=== PATIENT | female | born 1955 | race Caucasian/White ===

== ENCOUNTER → 2016-12-30 | Outpatient (CLI) | payer MEDICARE, OTHER ==
--- NOTE | 2016-12-30 11:05 | CT ---
EXAMINATION TYPE: CT brain wo con DATE OF EXAM: 12/30/2016 10:47 AM COMPARISON: CT brain November 02, 2014. HISTORY: Change in memory, MÉNDEZ, and blurred vision. Cerebral infarction per order. CT DLP: 1052 mGycm. Automated Exposure Control for Dose Reduction was Utilized. TECHNIQUE: CT scan of the head is performed without contrast. FINDINGS: There is no acute intracranial hemorrhage or midline shift identified. There is mild vent ricular and sulcal prominence consistent with mild age-related cerebral atrophy. Coley-white matter di fferentiation is maintained. The globes are intact though lenses remain thinned bilaterally and the visualized sinuses are clear. IMPRESSION: No acute intracranial hemorrhage or midline shift is seen. Mild age-related cerebral atr ophy otherwise unremarkable study. No significant change from prior. Results communicated to ordering physician as requested at time of dictation. A Document Only message has been documented for Catarino Hannon MD in the [employer] system on 12/30/2016 11:02 AM, Message ID [id number].
== END | disposition home or self-care (01) ==
LOC: RADCTMAIN 10:25
PROVIDERS: ATTEND Family Medicine
DX: G31.9 Degenerative disease of nervous system, unspecified (principal); I63.9 Cerebral infarction, unspecified
CPT/HCPCS: 70450

== ENCOUNTER → 2017-06-07 | Outpatient (CLI) | payer MEDICARE, OTHER ==
--- NOTE | 2017-06-08 09:37 | MM ---
Reason for exam: screening (asymptomatic). Last mammogram was performed 1 year and 1 month ago. History: Patient is postmenopausal. Family history of premenopausal breast cancer in sister, premenopausal breast cancer in mother, and breast cancer in sister. Benign right mammotome panel of the right breast, May 24, 2009. Took estrogen for 3 years beginning at age 31. Physical Findings: A clinical breast exam by your physician is recommended on an annual basis and results should be correlated with mammographic findings. MG 3D Screening Mammo W/Cad Bilateral CC and MLO view(s) were taken. Prior study comparison: May 21, 2016, bilateral MG 3d screening mammo w/cad. May 15, 2015, bilateral MG screening mammo w CAD. There are scattered fibroglandular densities. There is no discrete abnormality. No significant changes when compared with prior studies. ASSESSMENT: Negative, BI-RAD 1 RECOMMENDATION: Routine screening mammogram of both breasts in 1 year.
== END | disposition home or self-care (01) ==
LOC: RADMAMWWP 13:56
PROVIDERS: ATTEND Family Medicine
DX: Z12.31 Encounter for screening mammogram for malignant neoplasm of breast (principal)
CPT/HCPCS: 77063; G0202

== ENCOUNTER → 2018-01-03 | Outpatient (CLI) | payer MEDICARE, OTHER ==
[2018-01-03 18:28] LABS: Basophils % (A) 0 %; Eosinophils # (A) 0.2 k/uL (0-0.7); Eosinophils % (A) 2 %; HCT 34.5 % (34.0-46.0); Hypochromasia Slight; Lymphocytes # (A) 3.7 k/uL (1.0-4.8); Lymphocytes % (A) 38 %; MCH 27.3 pg (25.0-35.0); MCHC 31.8 g/dL (31.0-37.0); MCV 85.8 fL (80.0-100.0); Mean Platelet Volume 7.8; Monocytes # (A) 0.4 k/uL (0-1.0); Monocytes % (A) 4 %; Neutrophils # (A) 5.2 k/uL (1.3-7.7); Neutrophils % (A) 54 %; Platelet Count 261 k/uL (150-450); RBC 4.02 m/uL (3.80-5.40); RDW 14.3 % (11.5-15.5); WBC 9.6 k/uL (3.8-10.6)
[2018-01-03 18:34] LABS: Blood Urea Nitrogen 18 mg/dL (7-17); C Reactive Protein <5.0 mg/L (<10.0)
[2018-01-03 19:29] LABS: Erythrocyte Sedimentation Rate 22 mm/hr (0-20)
--- NOTE | 2018-01-04 08:54 | CT ---
EXAMINATION TYPE: CT soft tissue neck w con DATE OF EXAM: 01/03/2018 HISTORY: Sore throat x 2 weeks. Neck pain per order. COMPARISON: NONE CT DLP: 406.4 mGycm. Automated Exposure Control for Dose Reduction was Utilized. TECHNIQUE: CT scan of the neck is performed with IV Contrast, patient injected with 100 mL of Omnipa que 300, axial images are obtained, coronal and sagittal reformatted images are reviewed. FINDINGS: Airway: There is calcified 4 mm nodule superior aspect left lower lobe axial image 8. Airway is other stanton patent. Epiglottis and vallecula are within normal limits. Thyroid gland is normal in size Parotid/submandibular glands: Symmetric slightly heterogeneous submandibular glands with adjacent tin y lymph nodes strongly favored benign. Carotid/Vascular Structures: No significant plaque or stenosis at carotid bulb level bilaterally Osseous Structures: Anterior fusion plate C5-C6 level with artificial disc material. Moderate anterio r spurring superior to this. Multilevel uncovertebral facet arthropathy bilaterally C3 and C4 levels. Slight levoconvex scoliotic curvature centered in the thoracic spine. Other: No suspicious greater than 1 cm neck adenopathy is present IMPRESSION: No obvious mass or adenopathy. No suspicious focal fluid collection.
== END | disposition home or self-care (01) ==
LOC: RADCTMAIN 17:49
PROVIDERS: ATTEND Family Medicine
DX: M54.2 Cervicalgia (principal)
CPT/HCPCS: 85652; 82565; 84520; 85025; 86140; 70491; 36415; Q9967

== ENCOUNTER → 2018-01-06 | Outpatient (CLI) | payer MEDICARE, OTHER ==
--- NOTE | 2018-01-06 14:15 | NM ---
EXAMINATION TYPE: NM bone 3 phase DATE OF EXAM: 01/06/2018 COMPARISON: NONE HISTORY: Right knee pain x6 months. Triple phase bone scintigraphy was performed following the injection of25.5 mCi Tc 99m MDP. Immediat e images and 5 hours post injection images acquired. FINDINGS: Bilateral total knee arthroplasty defects are noted. There is increased radiotracer accumulation invo lving the tibial and femoral components of the right knee prosthesis. I cannot exclude a degree of un derlying infection or loosening. Correlate clinically. IMPRESSION: I cannot exclude a degree of underlying infection or loosening. Correlate clinically.
== END | disposition home or self-care (01) ==
LOC: RADNMMAIN 07:42
PROVIDERS: ATTEND Orthopaedic Surgery
DX: M79.661 Pain in right lower leg (principal); Z96.653 Presence of artificial knee joint, bilateral
CPT/HCPCS: 78315; A9503

== ENCOUNTER → 2018-01-26 | Outpatient (CLI) | payer MEDICARE, OTHER ==
[2018-01-26 11:22] LABS: Basophils % (A) 0 %; Eosinophils # (A) 0.2 k/uL (0-0.7); Eosinophils % (A) 2 %; HGB 11.9 gm/dL (11.4-16.0); Hypochromasia Slight; Lymphocytes # (A) 2.7 k/uL (1.0-4.8); Lymphocytes % (A) 28 %; MCHC 31.4 g/dL (31.0-37.0); MCV 85.8 fL (80.0-100.0); Monocytes # (A) 0.4 k/uL (0-1.0); Monocytes % (A) 4 %; Neutrophils # (A) 6.2 k/uL (1.3-7.7); Neutrophils % (A) 65 %; Platelet Count 254 k/uL (150-450); RBC 4.43 m/uL (3.80-5.40); WBC 9.5 k/uL (3.8-10.6)
[2018-01-26 11:31] LABS: ALT 27 U/L (9-52); AST 16 U/L (14-36); Albumin 4.2 g/dL (3.5-5.0); Alkaline Phosphatase 72 U/L (38-126); Anion Gap 14 mmol/L; Blood Urea Nitrogen 18 mg/dL (7-17); Calcium 9.4 mg/dL (8.4-10.2); Carbon Dioxide 27 mmol/L (22-30); Chloride 104 mmol/L (98-107); Glucose 112 mg/dL (74-99); INR 0.9 (<1.2); Potassium 4.4 mmol/L (3.5-5.1); Prothrombin Time 9.4 sec (9.0-12.0); Sodium 145 mmol/L (137-145); Total Bilirubin 0.3 mg/dL (0.2-1.3); Total Protein 7.1 g/dL (6.3-8.2)
--- NOTE | 2018-01-26 11:43 | XR ---
EXAMINATION TYPE: XR chest 2V DATE OF EXAM: 01/26/2018 COMPARISON: 05/03/2015 INDICATION: Presurgical clearance TECHNIQUE: Frontal and lateral views of the chest are obtained. FINDINGS: The heart size is normal. The pulmonary vasculature is normal. The lungs are clear. IMPRESSION: 1. No acute pulmonary process.
== END | disposition home or self-care (01) ==
LOC: LABPAT 10:48
PROVIDERS: ATTEND Orthopaedic Surgery
DX: Z01.818 Encounter for other preprocedural examination (principal); I10 Essential (primary) hypertension; Z79.899 Other long term (current) drug therapy; Z01.812 Encounter for preprocedural laboratory examination
CPT/HCPCS: 71046; 80053; 82607; 85025; 85610; 87070; 93005

== ENCOUNTER 2018-02-08 11:46 | Inpatient (IN) | payer MEDICARE, OTHER ==
[2018-02-01 14:29] VITALS: BMI 33.4
--- NOTE | 2018-02-07 10:23 | HP ---
HISTORY AND PHYSICAL CHIEF COMPLAINT: Right knee pain. HISTORY OF PRESENT ILLNESS: Patient is a 62-year-old retired female who presents with progressive right knee pain for the past several years. She underwent initial total knee arthroplasty in 1997. She denies fevers or chills. She has pain with any weightbearing activity. She has been taking [place] for this. PAST MEDICAL HISTORY: Significant for arthritis, type 2 diabetes and hypertension. PAST SURGICAL HISTORY: Significant for gastric bypass, previous bilateral total knee arthroplasty, appendectomy, carpal tunnel release and hysterectomy. CURRENT MEDICATIONS: 1. Abilify. 2. Cymbalta. 3. Lotensin. 4. Mobic. 5. Metformin. 6. [place]. She has allergies to INDERAL and ULTRAM. FAMILY HISTORY: Significant for cancer, hypertension and heart disease. SOCIAL HISTORY: Significant for previous tobacco use; however. she quit in 1989. 16 POINT REVIEW OF SYSTEMS: Otherwise reviewed and is noncontributory. PHYSICAL EXAMINATION: The patient is approximately 5 foot 1, 183 pounds of endomorphic habitus. HEENT exam is nonfocal. Neck is supple. She has painless passive motion of the right hip. Straight leg raise is negative. Active motion right knee -12 to 95 degrees of flexion. She has a moderate effusion. There is no warmth or erythema. She has tenderness about the medial and lateral joint line. Collaterals are stable. Homans is negative. Her distal neurovascular appears intact in the right lower extremity. Previous bone scan show shows evidence of increased uptake involving the right femoral and tibial components. Previous x-rays show a right total knee arthroplasty. IMPRESSION: 1. 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 2. Yhs-[id number]-awvklptff diabetes. RECOMMENDATIONS: I talked to the patient at length regarding her treatment options. At this point, she is quite symptomatic. She opts to proceed with surgery. We will plan to proceed with revision right total knee arthroplasty. Risks and benefits were discussed at length in layman's terms. We will institute DVT prophylaxis postoperatively. The patient underwent preoperative medical evaluation by Dr. Catarino Hannon. MMOZZIEL / DM: [id number] /
[~2018-02-08 11:46] MED LIST: ACETAMINOPHEN TAB 500 MG TAB PO ONE; LIDOCAINE 1% 20 ML VIAL (10MG/ML) FOR IV START INTRADERMA PRN; MELOXICAM 7.5 MG TAB PO ONE; MORPHINE SULFATE 4 MG/0.8 ML SYRINGE (INJ) IV PRN; ONDANSETRON 4 MG/2 ML VIAL ONE; ONDANSETRON ODT 4 MG TAB PO ONE; TRANEXAMIC ACID 1,000 MG in SODIUM CHLORIDE 0.9% 50 ML IVPB ONE; ceFAZolin IN SWFI 2 GM/20 ML SYRINGE IVP ONE
[2018-02-08] MEDS: LACTATED RINGERS 1,000 ML IV SCH (12:18)
[2018-02-08] MEDS ORDERED: DEXAMETHASONE SOD PHOS (MDV) 100 MG/10 ML VIAL IVP ONE (12:19)
[2018-02-08] MEDS ORDERED: MIDAZOLAM 2 MG/2 ML VIAL ONE (12:29)
[2018-02-08 12:39] LABS: Glucose,Whole Blood 123 mg/dL (75-99)
[2018-02-08] MEDS ORDERED: MIDAZOLAM 2 MG/2 ML VIAL IVP ONE ×2 (12:50→12:51)
[2018-02-08] MEDS ORDERED: ROPIVACAINE 246.25 MG, EPINEPHrine 0.5 MG, KETOROLAC 30 MG, cloNIDine HCL/PF 80 MCG, WA... MISCELLANE ONE ×5 (13:12)
[2018-02-08] MEDS ORDERED: ROPIVACAINE 1,100 MG, SODIUM CHLORIDE 0.9% 330 ML MISCELLANE PRN ×2 (13:55)
--- NOTE | 2018-02-08 13:56 | P.ONQ ---
Anesthesiology Proc Note - PNB - Peripheral Nerve Block Performed Right Adductor Canal Time Out Performed: Yes (12:48) Indication: Acute Post-Operative Pain, Requested by physician (Dr Bond) Sedation Type: Sedate with meaningful contact maintained Preparation: Sterile Dressing Position: Supine Catheter: Indwelling Needle Types: Other (see comment) (Mikaela) Needle Size: 100mm (4") Needle Gauge: 21 Injectate: 0.5% Ropivacaine (see comment for volume) (20cc) Blood Aspirated: No Pain Paresthesia on Injection Noted: No Resistance on Injection: Normal Events: Uneventful and Well Tolerated
[2018-02-08] MEDS ORDERED: CLINDAMYCIN 1,800 MG in SODIUM CHLORIDE 0.9% IRRIGATIO 3,000 ML IRRIGATION ONE (14:34)
[2018-02-08] MEDS ORDERED: MORPHINE SULFATE 4 MG/0.8 ML SYRINGE (INJ) IVP PRN ×2 (16:19)
[2018-02-08] MEDS ORDERED: NALOXONE 0.4 MG/ML 1 ML VIAL IV PRN (16:19)
[2018-02-08] MEDS ORDERED: MORPHINE SULFATE 4 MG/0.8 ML SYRINGE (INJ) IV PRN ×2 (16:19)
[2018-02-08] MEDS ORDERED: MAGNESIUM HYDROXIDE 2,400 MG/10 ML CUP PO PRN (16:19)
[2018-02-08] MEDS ORDERED: HYDROcodone/APAP 10-325MG 1 EACH TAB PO PRN ×2 (16:19→17:37)
[2018-02-08] MEDS ORDERED: ONDANSETRON 4 MG/2 ML VIAL IVP PRN (16:19)
[2018-02-08] MEDS ORDERED: LACTATED RINGERS 1,000 ML IV ONE ×2 (16:20)
--- NOTE | 2018-02-08 16:51 | P.OP ---
Date of Procedure: 02/08/18 Preoperative Diagnosis: Aseptic loosening right total knee arthroplasty Postoperative Diagnosis: Same Procedure(s) Performed: Revision right total knee arthroplasty Implants: Depuy TC3 size 3 cemented femoral component, 31 mm metaphyseal sleeve, 16 mm x 75 mm fluted femoral stem, +4 posterior lateral augment, size 3 cemented MBT tibial tray, 29 mm metaphyseal sleeve, 13 mm x 60 mm cemented tibial stem, 12.5 mm rotating platform articular surface. Anesthesia: regional, local, spinal Surgeon: Cleve Bond Shaper Machine Hand #1: Abdiaziz Kilgore Estimated Blood Loss (ml): 100 Pathology: none sent Condition: stable Disposition: PACU Indications for Procedure: The patient is a 62-year-old female who presents with progressive right knee pain after previously undergoing a right total hemiarthroplasty years ago. Clinically and by bone scan she was noted to have evidence of aseptic loosening with normal lab results. A discussion of the risks and benefits of revision arthroplasty was made with the patient. She opted to proceed. Operative risks to include infection, neurovascular injury, development of blood clots, possible component loosening, possible component failure and need for subsequent procedures was discussed. Informed consent was obtained. Operative Findings: As below Description of Procedure: The patient was brought to the operating room, and after induction of spinal anesthesia the right lower extremity was prepped and draped in normal fashion. The tourniquet was inflated to 270 mmHg. The curvilinear anterior incision previously made was utilized. The skin was incised sharply. Subcu tissues tissues were divided sharply. Electrocautery was used for hemostasis. A medial parapatellar arthrotomy was performed. The medial soft tissues to include the superficial and deep portions of the medial collateral ligament were elevated subperiosteally. The patella was everted. The knee was flexed. The polyethylene was then removed and was noted to have significant wear. There was also a significant effusion. The bone cement interface involving the distal femoral component was then interrupted with a sagittal saw. The distal femur was easily extracted. There was minimal distal and posterior bone loss however moderate anterior bone loss. Attention was then paid towards the proximal tibia. The screws were easily removed. The cement/implant interface was then disrupted with a sagittal saw. The tibial component was easily extracted with minimal bone loss. The tibia was then prepared utilizing the appropriate reamer. This was taken to the appropriate depth. I reamed up to 16 mm. The metaphyseal reamer was then utilized to the appropriate depth. I felt size 29 metaphyseal sleeve was most appropriate. The tibia sized most probably size 3. The metaphyseal broach was inserted to the appropriate depth. A cleanup cut was made with a sagittal saw. The trial tibial component was assembled and in inserted and felt to have good medial to lateral and anterior to posterior fit. This was then removed. Attention was then paid towards pairing the femur. The femoral canal was then reamed up to 16 mm to the appropriate depth. The metaphyseal reamer was utilized. A felt size 31 was most appropriate. The metaphyseal broach was inserted to the appropriate depth. The distal cutting block was placed. I needed no additional distal resection. No significant distal augment was needed. The 4-in-1 cutting block was placed. The anterior, posterior, and chamfer cuts were made. I did require a 4 mm posterior lateral augment. A box cut was made for a TC 3 component. The trial component was assembled and then gently impacted. I had good anterior to posterior medial to lateral fit. The trial tibial component was then placed along with the trial femoral component and a 12.5 mm articular surface. I to obtain full flexion and extension with stability with varus and valgus stress. I then inspected the patellar component. This appeared well fixed and in reasonable condition. I did not feel this required revision. The trial components were then removed. The bony surfaces were prepared with pulsatile lavage and dried. The posterior soft tissues were injected with ropivacaine. The tibial component was then cemented in placed and was fully seated. Excess cement was removed. The femoral component was cemented in place and was fully seated. Excess cement was removed. The trial 12.5 mm articular surface was placed and knee was put in full extension. Again I felt I good stability and was able to obtain full flexion and extension. The final articular surface was inserted and gently impacted. Pulsatile lavage was again utilized. The tourniquet was deflated with approximately 9 0 medial parapatellar arthrotomy was closed with #2 Ethibond suture. A deep drain was placed exiting laterally. Final hemostasis was obtained with electrocautery. The second dose of IV TXA was given. The subcu tissues reapproximated interrupted 2-0 Vicryl sutures. Skin approximated with susan. A sterile dressing was applied. The patient was then awoken from sedation and transferred to recovery room in good condition. Blood loss was estimated at 100 mL. No complications were incurred. Sponge and needle counts were correct at the end the case.
--- NOTE | 2018-02-08 17:18 | XR ---
EXAMINATION TYPE: XR knee limited RT DATE OF EXAM: 02/08/2018 COMPARISON: NONE HISTORY: Postop knee surgery TECHNIQUE: 2 views FINDINGS: There is a right knee prosthesis. Components appear in anatomic position. There are anterio r skin susan. IMPRESSION: No complicating process seen.
[2018-02-08 17:20] LABS: Glucose,Whole Blood 175 mg/dL (75-99)
[2018-02-08] MEDS: traMADol 50 MG TAB PO SCH ×2 (18:04→22:05)
[2018-02-08] MEDS: HYDROcodone/APAP 10-325MG 1 EACH TAB PO PRN (19:09)
[2018-02-08 20:14] LABS: Glucose,Whole Blood 233 mg/dL (75-99)
[2018-02-08] MEDS: ATORVASTATIN 40 MG TAB PO SCH (21:19)
[2018-02-08] MEDS: DULoxetine HCL 60 MG CAPSULE.DR PO SCH (21:19)
[2018-02-08] MEDS: INSULIN ASPART 100 UNIT/ML 1 ML 10 ML VIAL SQ SCH (21:19)
[2018-02-08] MEDS: traZODone HCL 50 MG TAB PO SCH (21:20)
[2018-02-08] MEDS: MONTELUKAST 10 MG TAB PO SCH (21:20)
[2018-02-08] MEDS: SENNOSIDES-DOCUSATE SODIUM 1 EACH TAB PO SCH (21:20)
[2018-02-08] MEDS: ceFAZolin IN SWFI 2 GM/20 ML SYRINGE IVP SCH (22:05)
[2018-02-09] MEDS: HYDROcodone/APAP 10-325MG 1 EACH TAB PO PRN ×3 (03:08→19:08)
[2018-02-09] MEDS: LACTATED RINGERS 1,000 ML IV SCH (03:09)
[2018-02-09] MEDS: ceFAZolin IN SWFI 2 GM/20 ML SYRINGE IVP SCH (05:09)
[2018-02-09 06:50] LABS: Glucose,Whole Blood 112 mg/dL (75-99)
[2018-02-09 07:23] LABS: Basophils % (A) 0 %; Eosinophils % (A) 0 %; HCT 29.6 % (34.0-46.0); Lymphocytes # (A) 2.3 k/uL (1.0-4.8); Lymphocytes % (A) 16 %; MCHC 31.1 g/dL (31.0-37.0); MCV 83.7 fL (80.0-100.0); Mean Platelet Volume 7.2; Monocytes # (A) 0.8 k/uL (0-1.0); Monocytes % (A) 6 %; Neutrophils % (A) 77 %; Platelet Count 238 k/uL (150-450); RBC 3.54 m/uL (3.80-5.40); RDW 13.5 % (11.5-15.5); WBC 14.3 k/uL (3.8-10.6)
[2018-02-09 07:33] LABS: HGB 9.2 gm/dL (11.4-16.0)
[2018-02-09] MEDS: INSULIN ASPART 100 UNIT/ML 1 ML 10 ML VIAL SQ SCH ×4 (08:30→21:47)
[2018-02-09] MEDS: LISINOPRIL 20 MG TAB PO SCH (08:40)
[2018-02-09] MEDS: FAMOTIDINE 20 MG TAB PO SCH (08:40)
[2018-02-09] MEDS: ARIPiprazole 10 MG TAB PO SCH (08:40)
[2018-02-09] MEDS: RIVAROXABAN 10 MG TAB PO SCH (08:40)
[2018-02-09] MEDS: DULoxetine HCL 60 MG CAPSULE.DR PO SCH ×2 (08:40→20:29)
[2018-02-09] MEDS: LINAGLIPTIN 5 MG TABLET PO SCH (08:40)
[2018-02-09] MEDS: DONEPEZIL 10 MG TAB PO SCH (08:42)
[2018-02-09] MEDS: MELOXICAM 7.5 MG TAB PO SCH (08:42)
[2018-02-09] MEDS: traMADol 50 MG TAB PO SCH ×3 (08:44→19:45)
--- NOTE | 2018-02-09 09:34 | P.PN ---
Progress Note - Text The patient is status post right adductor canal catheter placement. The catheter was placed for postoperative pain control, status post total right arthroplasty. Ropivacaine 0.2% is infusing at 8 mLs per hour. The patient has no complaints of right lower extremity numbness or weakness. Patient's VAS score is 2-3 -10. Assessment: Patient's adductor canal catheter is in place and working appropriately. Plan: continue infusion and adjust it as needed.
[2018-02-09 11:03] LABS: Glucose,Whole Blood 197 mg/dL (75-99)
[2018-02-09 11:39] LABS: Hemoglobin A1C 6.7 % (4.0-6.0)
--- NOTE | 2018-02-09 12:15 | P.PN ---
Subjective Progress Note Date: 02/09/18 Principal diagnosis: Status post revision right total knee arthroplasty Patient seen today resting in her hospital chair, she appears comfortable. She states that she is very tender today. She's ambulated minimally with therapy. She denies any headaches, lightheadedness, chest pain or shortness of breath. Objective - Vital Signs Vital signs: Vital Signs Temp 97.4 F L 02/09/18 08:15 Pulse 75 02/09/18 08:15 Resp 16 02/09/18 08:15 BP 113/67 02/09/18 08:15 Pulse Ox 98 02/09/18 08:15 Intake & Output 02/08/18 02/09/18 02/09/18 18:59 06:59 18:59 Intake Total 1551 140 350 Output Total 610 1230 200 Balance 941 -1090 150 Weight 80.286 kg Intake: IV 1301 Intake, IV Titration 140 Amount Lactated Ringers 1,000 ml 140 @ 40 mls/hr IV .Q24H WALLACE Rx#:[id number] Oral 250 350 Output: Drainage 130 Right Knee 130 Urine 510 1100 200 Uretheral ([place]) 800 200 Estimated Blood Loss 100 Other: Voiding Method Indwelling Catheter Indwelling Catheter - Exam Right lower extremity: Incision is clean, dry, and intact. [place] are in good condition. There is minimal soft tissue swelling and ecchymosis surrounding the medial and lateral aspects of the incision. Calf is soft, no tenderness with palpation. Plantar flexion, dorsiflexion, EHL, FHL are intact. Sensory exam to light touch throughout the extremity is intact, dorsal pedis pulses 2+. - Labs CBC & Chem 7: 02/09/18 06:54 Labs: Abnormal Lab Results - Last 24 Hours (Table) 02/08/18 02/08/18 02/08/18 Range/Units 12:15 17:16 20:06 WBC (3.8-10.6) k/uL RBC (3.80-5.40) m/uL Hgb (11.4-16.0) gm/dL Hct (34.0-46.0) % Neutrophils # (1.3-7.7) k/uL POC Glucose (mg/dL) 123 H 175 H 233 H (75-99) mg/dL 04/25/18 04/25/18 04/25/18 Range/Units 06:46 06:54 11:00 WBC 14.3 H (3.8-10.6) k/uL RBC 3.54 L (3.80-5.40) m/uL Hgb 9.2 L D (11.4-16.0) gm/dL Hct 29.6 L (34.0-46.0) % Neutrophils # 11.0 H (1.3-7.7) k/uL POC Glucose (mg/dL) 112 H 197 H (75-99) mg/dL Assessment and Plan Plan: Assessment: 1. Postop day 1 status post revision right total knee arthroplasty Plan: 1. Pain control, continue supportive oral medication 2. Continue work physical therapy and use of CPM 3. GI and DVT prophylaxis, continue Xarelto 10 mg once a day 4. Daily dressing changes/ice and elevate 5. Medical recommendations 6. Discharge planning: Likely discharge patient home tomorrow Time with Patient: Less than 30
--- NOTE | 2018-02-09 12:41 | CONS ---
CONSULTATION DATE OF SERVICE: . CHIEF COMPLAINT: A 62-year-old white female admitted with progressive right knee pain for multiple years, status post total knee bypass arthroscopy in 1997. No chest pain, shortness of breath. No lightheadedness, syncope. She has type 2 diabetes, hypertension, arthritis, mild COPD, history of gastric bypass, appendectomy, right carpal tunnel release, hysterectomy, bipolar disorder. HOME MEDICINES: Abilify, Cymbalta, Lotensin, Mobic, metformin, [place]. FAMILY HISTORY: Cancer, hypertension, heart disease. ALLERGIES: INDERAL and TRAMADOL. SOCIAL HISTORY: Negative. . 14 POINT REVIEW OF SYSTEMS: Negative except for as mentioned in HPI. She is 5 foot 1, 183 pounds. HEENT: Normocephalic and atraumatic. She wears glasses. Lungs are clear. Heart is S1, S2 without murmurs, rubs or gallops. Abdomen is soft. MUSCULOSKELETAL: Her right knee is in an Jason wrap bandage. Limited motion of the left leg; otherwise, full range of motion of other extremities. ASSESSMENT: 1. Right total knee arthroscopy with septic loosening. 2. Hypertension. 3. Diabetes mellitus. 4. Obesity. 5. Mild chronic obstructive pulmonary disease. 6. Diabetes mellitus. 7. Mood disorder. 8. hypertension. Continue current treatments. Home medicines restarted. Watch for breathing issues, address [place] NGUYEN / DM: [id number] /
[2018-02-09] MEDS: CYANOCOBALAMIN 500 MCG TAB PO SCH (13:36)
[2018-02-09] MEDS: FLUTICASONE 50MCG/SPRAY NASAL 16GM EA NOSTRIL SCH (15:53)
[2018-02-09] MEDS: PSEUDOEPHEDRINE 12HR 120 MG TABLET.ER PO SCH (15:53)
[2018-02-09 17:13] LABS: Glucose,Whole Blood 147 mg/dL (75-99)
--- NOTE | 2018-02-09 18:00 | PN ---
PROGRESS NOTE SUBJECTIVE: 62-year-old, white female with a septic knee status post total knee replacement right knee. Having no chest pain, shortness of breath. She is complaining of sinus congestion today on Sudafed and I ordered Singular from home and Nasacort nasal spray. No chest pain. No shortness of breath. CARDIOVASCULAR: S1, S2. Lungs clear. GI: Soft. Musculoskeletal: She is up ambulating down the garay a little bit. Possible discharge home in the morning. Add sinus medication, updrafts p.r.n. Please see further orders. MMODL / IJN: [id number] /
[2018-02-09] MEDS: MONTELUKAST 10 MG TAB PO SCH (20:29)
[2018-02-09] MEDS: ATORVASTATIN 40 MG TAB PO SCH (20:29)
[2018-02-09] MEDS: traZODone HCL 50 MG TAB PO SCH (20:29)
[2018-02-09] MEDS: SENNOSIDES-DOCUSATE SODIUM 1 EACH TAB PO SCH (20:31)
[2018-02-09 21:00] LABS: Glucose,Whole Blood 171 mg/dL (75-99)
[2018-02-10] MEDS: traMADol 50 MG TAB PO SCH ×3 (00:57→13:16)
[2018-02-10] MEDS: HYDROcodone/APAP 10-325MG 1 EACH TAB PO PRN (03:44)
[2018-02-10] MEDS: LACTATED RINGERS 1,000 ML IV SCH (04:33)
[2018-02-10] MEDS: PSEUDOEPHEDRINE 12HR 120 MG TABLET.ER PO SCH (06:14)
[2018-02-10 07:24] LABS: Glucose,Whole Blood 151 mg/dL (75-99)
[2018-02-10 08:14] VITALS: BP 124/58; PULSE 78; RESP 16; TEMP 98.4
[2018-02-10] MEDS: INSULIN ASPART 100 UNIT/ML 1 ML 10 ML VIAL SQ SCH ×2 (08:22→13:18)
[2018-02-10] MEDS: FLUTICASONE 50MCG/SPRAY NASAL 16GM EA NOSTRIL SCH (08:23)
[2018-02-10] MEDS: DULoxetine HCL 60 MG CAPSULE.DR PO SCH (08:23)
[2018-02-10] MEDS: MELOXICAM 7.5 MG TAB PO SCH (08:24)
[2018-02-10] MEDS: DONEPEZIL 10 MG TAB PO SCH (08:24)
[2018-02-10] MEDS: CYANOCOBALAMIN 500 MCG TAB PO SCH (08:24)
[2018-02-10] MEDS: ARIPiprazole 10 MG TAB PO SCH (08:24)
[2018-02-10] MEDS: FAMOTIDINE 20 MG TAB PO SCH (08:24)
[2018-02-10] MEDS: LINAGLIPTIN 5 MG TABLET PO SCH (08:25)
[2018-02-10] MEDS: RIVAROXABAN 10 MG TAB PO SCH (08:25)
[2018-02-10] MEDS: LISINOPRIL 20 MG TAB PO SCH (08:25)
[2018-02-10] MEDS ORDERED: MORPHINE ORAL SOLN 10 MG/5 ML CUP PO PRN ×4 (10:15→10:17)
--- NOTE | 2018-02-10 11:12 | P.PN ---
Progress Note - Text Progress Note Date: 02/10/18 S: The patient has no complaints. They deny shortness of breath or chest pain. O: Afebrile, vital signs stable Homans negative right lower extremity Distal neurovascular status intact in the operative extremity Incision clean, dry , and intact A/P: Postoperative day 2 status post revision right total knee arthroplasty Medical management DVT prophylaxis with Xarelto Discharge home today Discharge instructions as written
--- NOTE | 2018-02-10 11:14 | P.DS ---
Providers Date of admission: 02/08/18 11:46 Expected date of discharge: 02/10/18 Attending physician: Cleve Bond Consults: 02/08/18 16:19 Consult Physician Routine Consulting Provider: Catarino Hannon Reason/Comments: medical management Do you want consulting provider notified?: Yes [facility] Course: The patient underwent revision right total knee arthroplasty without complication. Postoperatively she had good return of bowel and bladder function. Upon discharge she was afebrile with stable vital signs. She was seen by physical therapy and progressed well with them. Procedures: Right revision total knee arthroplasty Patient Condition at Discharge: Good Plan - Discharge Summary Discharge Rx Participant: Yes New Discharge Prescriptions: New Rivaroxaban [Xarelto] 10 mg PO DAILY #12 tab HYDROcodone/APAP 10-325MG [[place] 10-325] 1 tab PO Q6H PRN #40 tab PRN Reason: Pain No Action Simvastatin [Zocor] 80 mg PO HS metFORMIN HCL [Glucophage] 1,000 mg PO BID DULoxetine HCL [Cymbalta] 60 mg PO BID Benazepril HCl [Lotensin] 20 mg PO QAM Linagliptin [Tradjenta] 5 mg PO QAM Vitamin B-12 1 tab PO DAILY Montelukast [Singulair] 10 mg PO HS HYDROcodone/APAP 10-325MG [[place] 10-325] 1 tab PO Q6H PRN PRN Reason: Pain Meloxicam [Mobic] 15 mg PO QAM Donepezil [Aricept] 10 mg PO QAM traZODone HCL 150 mg PO HS ARIPiprazole [Abilify] 10 mg PO QAM Discharge Medication List DULoxetine HCL [Cymbalta] 60 mg PO BID 03/26/14 [History] Simvastatin [Zocor] 80 mg PO HS 03/26/14 [History] metFORMIN HCL [Glucophage] 1,000 mg PO BID 03/26/14 [History] Benazepril HCl [Lotensin] 20 mg PO QAM 04/10/15 [History] Linagliptin [Tradjenta] 5 mg PO QAM 04/10/15 [History] Vitamin B-12 1 tab PO DAILY 06/05/15 [History] ARIPiprazole [Abilify] 10 mg PO QAM 02/01/18 [History] Donepezil [Aricept] 10 mg PO QAM 02/01/18 [History] HYDROcodone/APAP 10-325MG [[place] 10-325] 1 tab PO Q6H PRN 02/01/18 [History] Meloxicam [Mobic] 15 mg PO QAM 02/01/18 [History] Montelukast [Singulair] 10 mg PO HS 02/01/18 [History] traZODone HCL 150 mg PO HS 02/01/18 [History] Rivaroxaban [Xarelto] 10 mg PO DAILY #12 tab 02/08/18 [Rx] HYDROcodone/APAP 10-325MG [[place] 10-325] 1 tab PO Q6H PRN #40 tab 02/10/18 [Rx] Follow up Appointment(s)/Referral(s): [facility], [NON-STAFF] - Abdiaziz Kilgore, JUNI [PHYSICIAN BOAT DISPATCHER] - 2 Weeks Patient Instructions/Handouts: *Surgery [facility] - On-Q Pain Pump Discharge Instructions, Revision Total Joint Arthroplasty (DC) Activity/Diet/Wound Care/Special Instructions: Orthopedic Discharge Instructions: 1. Wound care and infection precautions, keep incision dry and covered while showering, no lotions, creams, moisturizers. No soaking, pools, hot tubs. Do not scrub over incision. 2. Weight-bear as tolerated with walker / cane until follow-up. 3. Ice and elevate when necessary. Do not exceed 20 minutes per hour with ice pack. 4. Utilize compression sleeve until seen at first follow up appointment. 5. Visiting nursing care. 6. Home physical therapy including home CPM. 7. Pain meds and anticoagulants per prescription. 8. Pain medication has potential to cause constipation. Increase oral fluid and fiber intake. Contact primary care provider if you have not had a bowel movement within 48 hours after discharge. 9. No anti-inflammatory medication until discussed at first post operative visit, this including Motrin, Aleve, Mobic, Diclofenac. 10. Follow up in office at 2 weeks postop with Vito Kilgore PA-C 11. Follow up with your primary care doctor 7-10 days after discharge. 12. Contact [facility] with any questions, [phone]. 13. [facility] - [phone] - will deliver to bedside before discharge. Discharge Disposition: HOME WITH HOME HEALTH SERVICES
[2018-02-10 11:49] LABS: Glucose,Whole Blood 186 mg/dL (75-99)
== END 2018-02-10 13:52 | disposition home health service (06) | DRG 468 ==
LOC: 2ORMAIN 11:46 → 3SUR 16:20
PROVIDERS: ADMIT Orthopaedic Surgery; ATTEND Orthopaedic Surgery
PROC: 0SPC0JZ Removal of Synthetic Substitute from Right Knee Joint, Open Approach (ICD-10-PCS; principal; 2018-02-08 13:35)
PROC: 0SRC0J9 Replacement of Right Knee Joint with Synthetic Substitute, Cemented, Open Approach (ICD-10-PCS; principal; 2018-02-08 13:35)
DX: T84.032A Mechanical loosening of internal right knee prosthetic joint, initial encounter (principal); E11.9 Type 2 diabetes mellitus without complications; Y79.2 Prosthetic and other implants, materials and accessory orthopedic devices associated with adverse incidents; E66.9 Obesity, unspecified; Z68.33 Body mass index [BMI] 33.0-33.9, adult; F31.9 Bipolar disorder, unspecified; I10 Essential (primary) hypertension; J44.9 Chronic obstructive pulmonary disease, unspecified; M19.90 Unspecified osteoarthritis, unspecified site; Z79.84 Long term (current) use of oral hypoglycemic drugs; Z82.49 Family history of ischemic heart disease and other diseases of the circulatory system; Z87.891 Personal history of nicotine dependence; Z90.710 Acquired absence of both cervix and uterus; Z98.84 Bariatric surgery status; Z88.6 Allergy status to analgesic agent; Z88.8 Allergy status to other drugs, medicaments and biological substances; Z79.1 Long term (current) use of non-steroidal anti-inflammatories (NSAID); Z79.891 Long term (current) use of opiate analgesic; Z79.899 Other long term (current) drug therapy; K21.9 Gastro-esophageal reflux disease without esophagitis
CPT/HCPCS: 83036; 85025

== ENCOUNTER → 2018-07-19 | Outpatient (CLI) | payer MEDICARE, OTHER ==
--- NOTE | 2018-07-20 14:39 | MM ---
Reason for exam: screening (asymptomatic). Last mammogram was performed 1 year and 1 month ago. History: Patient is postmenopausal. Family history of premenopausal breast cancer in sister, premenopausal breast cancer in mother, and breast cancer in sister. Benign right mammotome panel of the right breast, May 24, 2009. Took estrogen for 3 years beginning at age 31. Physical Findings: A clinical breast exam by your physician is recommended on an annual basis and results should be correlated with mammographic findings. MG 3D Screening Mammo W/Cad Bilateral CC and MLO view(s) were taken. Prior study comparison: June 07, 2017, bilateral MG 3d screening mammo w/cad. May 21, 2016, bilateral MG 3d screening mammo w/cad. There are scattered fibroglandular densities. Previous mammotome biopsy in the right breast. Benign oil cyst on the right. No significant changes when compared with prior studies. ASSESSMENT: Negative, BI-RAD 1 RECOMMENDATION: Routine screening mammogram of both breasts in 1 year.
== END | disposition home or self-care (01) ==
LOC: RADMAMWWP 15:00
PROVIDERS: ATTEND Family Medicine
DX: Z12.31 Encounter for screening mammogram for malignant neoplasm of breast (principal); Z80.3 Family history of malignant neoplasm of breast
CPT/HCPCS: 77063; 77067

== ENCOUNTER 2018-08-24 11:17 | Inpatient (IN) | payer MEDICARE, OTHER ==
[2018-08-24 11:58] LABS: Glucose,Whole Blood 87 mg/dL (75-99)
[2018-08-24] MEDS ORDERED: cefTRIAXone 1,000 MG VIAL (IM USE) IM SCH (12:15)
[2018-08-24 13:38] LABS: ALT 23 U/L (9-52); AST 12 U/L (14-36); Albumin 3.5 g/dL (3.5-5.0); Alkaline Phosphatase 51 U/L (38-126); Anion Gap 8 mmol/L; Blood Urea Nitrogen 14 mg/dL (7-17); Calcium 9.2 mg/dL (8.4-10.2); Carbon Dioxide 26 mmol/L (22-30); Chloride 106 mmol/L (98-107); Glucose 118 mg/dL (74-99); Potassium 4.5 mmol/L (3.5-5.1); Sodium 140 mmol/L (137-145); Total Bilirubin 0.2 mg/dL (0.2-1.3)
[2018-08-24 13:56] LABS: Basophils # (A) 0.1 k/uL (0-0.2); Basophils % (A) 1 %; Eosinophils # (A) 0.1 k/uL (0-0.7); Eosinophils % (A) 2 %; HCT 30.5 % (34.0-46.0); HGB 9.2 gm/dL (11.4-16.0); Hypochromasia Marked; Lymphocytes # (A) 2.7 k/uL (1.0-4.8); Lymphocytes % (A) 37 %; MCH 24.7 pg (25.0-35.0); MCHC 30.3 g/dL (31.0-37.0); MCV 81.5 fL (80.0-100.0); Mean Platelet Volume 7.6; Monocytes # (A) 0.3 k/uL (0-1.0); Monocytes % (A) 4 %; Neutrophils % (A) 55 %; Platelet Count 269 k/uL (150-450); RBC 3.74 m/uL (3.80-5.40); RDW 14.8 % (11.5-15.5); WBC 7.3 k/uL (3.8-10.6)
--- NOTE | 2018-08-24 14:01 | XR ---
EXAMINATION TYPE: XR chest 2V DATE OF EXAM: 08/24/2018 COMPARISON: 01/26/2018 HISTORY: Shortness of breath TECHNIQUE: Frontal and lateral views of the chest are obtained. FINDINGS: Scattered senescent parenchymal changes noted. No evidence for infiltrate. No evidence for atelectasis. Heart size is stable. Mediastinal structures are stable and grossly unremarkable. No evidence for hilar prominence. Degenerative changes dorsal spine. IMPRESSION: 1. No evidence for acute pulmonary disease.
[2018-08-24] MEDS: AZITHROMYCIN 500 MG in SODIUM CHLORIDE 0.9% 250 ML IVPB SCH (15:29)
[2018-08-24] MEDS: IPRATROPIUM-ALBUTEROL 3 ML NEB INHALATION SCH ×2 (15:29→19:47)
[2018-08-24] MEDS: ACETAMINOPHEN TAB 325 MG TAB PO PRN ×2 (15:31→20:21)
[2018-08-24] MEDS: SODIUM CHLORIDE 0.9% 1,000 ML IV SCH (15:33)
[2018-08-24] MEDS: methylPREDNISolone SOD SUCCI 125 MG/2 ML VIAL IV SCH (15:36)
[2018-08-24 16:45] LABS: Glucose,Whole Blood 115 mg/dL (75-99)
[2018-08-24] MEDS: traZODone HCL 100 MG TAB PO SCH (20:19)
[2018-08-24] MEDS: FLUTICASONE 50MCG/SPRAY NASAL 16GM EA NOSTRIL SCH (20:20)
[2018-08-24] MEDS: DULoxetine HCL 60 MG CAPSULE.DR PO SCH (20:21)
[2018-08-24] MEDS: ATORVASTATIN 40 MG TAB PO SCH (20:21)
[2018-08-24] MEDS: MONTELUKAST 10 MG TAB PO SCH (20:21)
[2018-08-24 20:23] LABS: Glucose,Whole Blood 247 mg/dL (75-99)
[2018-08-24] MEDS ORDERED: metFORMIN 500 MG TAB PO SCH (21:00)
[2018-08-24 21:22] LABS: Hemoglobin A1C 6.5 % (4.0-6.0)
[2018-08-24] MEDS ORDERED: RX INFO: IV CONTRAST WAS GIVEN 1 EACH MISC MISCELLANE PRN (23:03)
[2018-08-25] MEDS: methylPREDNISolone SOD SUCCI 125 MG/2 ML VIAL IV SCH ×3 (00:19→15:38)
[2018-08-25 06:56] LABS: Glucose,Whole Blood 177 mg/dL (75-99)
[2018-08-25] MEDS: IPRATROPIUM-ALBUTEROL 3 ML NEB INHALATION SCH ×4 (07:03→19:51)
[2018-08-25] MEDS ORDERED: ESCITALOPRAM 10 MG TAB PO SCH (09:00)
[2018-08-25] MEDS: HYDROcodone/APAP 10-325MG 1 EACH TAB PO PRN ×2 (09:04→15:35)
[2018-08-25] MEDS: SODIUM CHLORIDE 0.9% 1,000 ML IV SCH ×2 (09:35→16:20)
[2018-08-25] MEDS: DONEPEZIL 10 MG TAB PO SCH (09:44)
[2018-08-25] MEDS: FLUTICASONE 50MCG/SPRAY NASAL 16GM EA NOSTRIL SCH ×2 (09:45→21:09)
[2018-08-25] MEDS: DULoxetine HCL 60 MG CAPSULE.DR PO SCH ×2 (09:45→21:09)
[2018-08-25] MEDS: LISINOPRIL 20 MG TAB PO SCH (09:46)
[2018-08-25] MEDS: LINAGLIPTIN 5 MG TABLET PO SCH (09:46)
[2018-08-25] MEDS: MELOXICAM 7.5 MG TAB PO SCH (09:47)
[2018-08-25] MEDS: AZITHROMYCIN 500 MG in SODIUM CHLORIDE 0.9% 250 ML IVPB SCH (10:16)
[2018-08-25 11:12] LABS: Glucose,Whole Blood 206 mg/dL (75-99)
--- NOTE | 2018-08-25 11:55 | CT ---
CT CHEST FOR PULMONARY EMBOLISM. EXAMINATION TYPE: CT angio chest DATE OF EXAM: 08/25/2018 INDICATION: Elevated d-dimer CT DLP: 570 mGycm, Automated exposure control for dose reduction was used. CONTRAST: Patient injected with 100, wasted 31 mL of Isovue 370. COMPARISON: None TECHNIQUE: CT of the chest is performed on a spiral scan at 2 mm thick sections. Study is performed with intravenous contrast timed for evaluation for pulmonary embolism. This will limit additional po rtions of the evaluation. 3-D MIP images reconstructed by the technologist are reviewed on the compu ter in the coronal and sagittal planes. FINDINGS: No persistent filling defects are evident to suggest an acute pulmonary embolism. No mediastinal or hilar adenopathy enlarged by CT criteria is evident. The ascending aorta diameter at the level of the main pulmonary artery is 3.0 cm. The main pulmonary artery diameter at the bifur cation is 2.8 cm. There is a calcification within the left posterior upper lung field adjacent to the major fissure latrice suring 0.6 cm. This is compatible with a calcified granuloma. Limited CT section through the upper abdomen are unremarkable. IMPRESSIONS: 1. No acute pulmonary embolism.
[2018-08-25] MEDS: CHOLECALCIFEROL 1,000 UNIT TAB PO SCH (12:21)
[2018-08-25 17:09] LABS: Glucose,Whole Blood 266 mg/dL (75-99)
[2018-08-25 19:59] LABS: Glucose,Whole Blood 297 mg/dL (75-99)
[2018-08-25] MEDS: MONTELUKAST 10 MG TAB PO SCH (21:09)
[2018-08-25] MEDS: ATORVASTATIN 40 MG TAB PO SCH (21:09)
[2018-08-25] MEDS: traZODone HCL 100 MG TAB PO SCH (22:18)
[2018-08-26] MEDS: HYDROcodone/APAP 10-325MG 1 EACH TAB PO PRN ×3 (04:25→22:27)
[2018-08-26 06:55] LABS: Glucose,Whole Blood 201 mg/dL (75-99)
[2018-08-26 07:47] LABS: ALT 13 U/L (9-52); AST 9 U/L (14-36); Albumin 3.2 g/dL (3.5-5.0); Alkaline Phosphatase 45 U/L (38-126); Anion Gap 5 mmol/L; Blood Urea Nitrogen 16 mg/dL (7-17); Carbon Dioxide 25 mmol/L (22-30); Chloride 109 mmol/L (98-107); Glucose 178 mg/dL (74-99); Potassium 4.8 mmol/L (3.5-5.1); Sodium 139 mmol/L (137-145); Total Bilirubin 0.3 mg/dL (0.2-1.3); Total Protein 5.6 g/dL (6.3-8.2)
[2018-08-26] MEDS: FLUTICASONE 50MCG/SPRAY NASAL 16GM EA NOSTRIL SCH ×2 (07:53→20:41)
[2018-08-26] MEDS: methylPREDNISolone SOD SUCCI 125 MG/2 ML VIAL IV SCH ×2 (07:53)
[2018-08-26] MEDS: DULoxetine HCL 60 MG CAPSULE.DR PO SCH ×2 (07:53→20:41)
[2018-08-26] MEDS: MELOXICAM 7.5 MG TAB PO SCH (07:54)
[2018-08-26] MEDS: LISINOPRIL 20 MG TAB PO SCH (07:55)
[2018-08-26] MEDS: AZITHROMYCIN 500 MG TAB PO SCH (07:56)
[2018-08-26] MEDS: DONEPEZIL 10 MG TAB PO SCH (07:57)
[2018-08-26] MEDS: IPRATROPIUM-ALBUTEROL 3 ML NEB INHALATION SCH ×4 (08:55→19:08)
[2018-08-26 11:31] LABS: Glucose,Whole Blood 270 mg/dL (75-99)
[2018-08-26] MEDS: metFORMIN 500 MG TAB PO SCH ×2 (11:46→17:59)
[2018-08-26] MEDS: LINAGLIPTIN 5 MG TABLET PO SCH (11:51)
[2018-08-26] MEDS: CHOLECALCIFEROL 1,000 UNIT TAB PO SCH (11:51)
[2018-08-26] MEDS: INSULIN ASPART 100 UNIT/ML 1 ML 10 ML VIAL SQ SCH ×3 (11:54→20:41)
[2018-08-26] MEDS ORDERED: DARBEPOETIN ALFA 40 MCG/0.4 ML SYRINGE SQ SCH (17:00)
[2018-08-26 17:02] LABS: Glucose,Whole Blood 273 mg/dL (75-99)
--- NOTE | 2018-08-26 17:33 | HP ---
HISTORY AND PHYSICAL CHIEF COMPLAINT: This patient is a 63-year-old white female admitted with significant shortness of breath, cough, hypoxemia, COPD exacerbation, tracheobronchitis. She had elevated D- dimer and CT scan of her chest was ordered. It was negative for pulmonary embolism. She was admitted for hypoxemia, given IV steroids and updraft treatments and IV antibiotics. She is stable for admission. HOME MEDICATIONS: Home medications include: 1. Abilify. 2. Lipitor. 3. Aricept. 4. Cymbalta. 5. Hydrocodone. 6. Insulin. 7. DuoNeb updrafts. 8. Tradjenta. 9. Zestril. 10.Mobic. 11.Glucophage. 12.Singulair. 13.Desyrel. PAST MEDICAL HISTORY: 1. History of depression. 2. Bipolar depression. 3. Asthma. 4. Rhinitis. 5. Hypertension. 6. Osteoarthritis. 7. Depression. REVIEW OF SYSTEMS: Fourteen-point review of systems negative except for mentioned in the HPI. PHYSICAL EXAMINATION: Oxygen saturation high 80s to 90s, respiratory rate 25-30. Blood pressure was 110 over 70s to 140s over 80s. LUNGS: Scattered rhonchi and wheeze x4. CARDIOVASCULAR: S1-S2. OPHTHALMOLOGIC: Pupils equal, round, reactive to light and accommodation. NEUROLOGIC: Alert and orient x3. HEMATOLOGY: Negative Homans. PSYCH: Fair mood and affect. ASSESSMENT: 1. Asthma. 2. Chronic obstructive pulmonary disease exacerbation. 3. Tracheobronchitis. 4. Hypertension. 5. Osteoarthritis. 6. Diabetes mellitus. Continue current treatment, including updraft treatments, IV steroids, antibiotics. Follow up in the next 24-48 hours. MMODL / IJN: [id number] /
[2018-08-26 20:33] LABS: Glucose,Whole Blood 297 mg/dL (75-99)
[2018-08-26] MEDS: ATORVASTATIN 40 MG TAB PO SCH (20:41)
[2018-08-26] MEDS: methylPREDNISolone SOD SUCCI 40 MG/ML 1 ML VIAL IV SCH (20:42)
[2018-08-26] MEDS: MONTELUKAST 10 MG TAB PO SCH (20:42)
[2018-08-26] MEDS: SODIUM CHLORIDE 0.9% 1,000 ML IV SCH (20:48)
[2018-08-26 23:07] VITALS: RESP 16
[2018-08-26] MEDS: traZODone HCL 100 MG TAB PO SCH (23:14)
[2018-08-27 05:23] VITALS: BP 176/86; TEMP 98.1
[2018-08-27 06:54] LABS: Glucose,Whole Blood 210 mg/dL (75-99)
[2018-08-27] MEDS ORDERED: metFORMIN 500 MG TAB PO SCH (07:30)
[2018-08-27] MEDS: IPRATROPIUM-ALBUTEROL 3 ML NEB INHALATION SCH ×2 (07:37→11:31)
[2018-08-27] MEDS: INSULIN ASPART 100 UNIT/ML 1 ML 10 ML VIAL SQ SCH ×2 (08:42→13:39)
[2018-08-27] MEDS: HYDROcodone/APAP 10-325MG 1 EACH TAB PO PRN (08:42)
[2018-08-27] MEDS: AZITHROMYCIN 500 MG TAB PO SCH (08:43)
[2018-08-27] MEDS: LINAGLIPTIN 5 MG TABLET PO SCH (08:43)
[2018-08-27] MEDS: DULoxetine HCL 60 MG CAPSULE.DR PO SCH (08:43)
[2018-08-27] MEDS: metFORMIN 500 MG TAB PO SCH (08:43)
[2018-08-27] MEDS: MELOXICAM 7.5 MG TAB PO SCH (08:44)
[2018-08-27] MEDS: FLUTICASONE 50MCG/SPRAY NASAL 16GM EA NOSTRIL SCH (08:44)
[2018-08-27] MEDS: LISINOPRIL 20 MG TAB PO SCH (08:44)
[2018-08-27] MEDS: methylPREDNISolone SOD SUCCI 40 MG/ML 1 ML VIAL IV SCH (08:45)
[2018-08-27] MEDS: DONEPEZIL 10 MG TAB PO SCH (08:45)
[2018-08-27 11:03] LABS: Glucose,Whole Blood 126 mg/dL (75-99)
[2018-08-27 12:10] VITALS: PULSE 86
[2018-08-27] MEDS: CHOLECALCIFEROL 1,000 UNIT TAB PO SCH (13:40)
== END 2018-08-27 14:34 | disposition home or self-care (01) | DRG 191 ==
LOC: 3NMEDONC 11:27
PROVIDERS: ADMIT Family Medicine; ATTEND Family Medicine
DX: J44.0 Chronic obstructive pulmonary disease with (acute) lower respiratory infection (principal); F31.30 Bipolar disorder, current episode depressed, mild or moderate severity, unspecified; J44.1 Chronic obstructive pulmonary disease with (acute) exacerbation; J40 Bronchitis, not specified as acute or chronic; E11.9 Type 2 diabetes mellitus without complications; I10 Essential (primary) hypertension; J31.0 Chronic rhinitis; M19.90 Unspecified osteoarthritis, unspecified site; R09.02 Hypoxemia; Z79.84 Long term (current) use of oral hypoglycemic drugs; Z79.1 Long term (current) use of non-steroidal anti-inflammatories (NSAID); Z79.51 Long term (current) use of inhaled steroids; Z79.899 Other long term (current) drug therapy
CPT/HCPCS: 71046; 71275; 80053; 83036; 85025; 85379; 87502; 94640

== ENCOUNTER → 2019-02-03 | Outpatient (CLI) | payer MEDICARE, OTHER ==
[~2019-02-03] MED LIST changes: -ACETAMINOPHEN TAB 500 MG TAB PO ONE; -LIDOCAINE 1% 20 ML VIAL (10MG/ML) FOR IV START INTRADERMA PRN; -MELOXICAM 7.5 MG TAB PO ONE; -MORPHINE SULFATE 4 MG/0.8 ML SYRINGE (INJ) IV PRN; -ONDANSETRON 4 MG/2 ML VIAL ONE; -ONDANSETRON ODT 4 MG TAB PO ONE; +REGADENOSON 0.4 MG/5 ML SYRINGE IV ONE; -TRANEXAMIC ACID 1,000 MG in SODIUM CHLORIDE 0.9% 50 ML IVPB ONE; -ceFAZolin IN SWFI 2 GM/20 ML SYRINGE IVP ONE
--- NOTE | 2019-02-03 12:15 | NM ---
EXAMINATION TYPE: NM stress lexiscan cardiolite DATE OF EXAM: 02/03/2019 COMPARISON: 07/29/2012 HISTORY: Hypertension, diabetes, palpitations, hyperlipidemia, and family history of coronary artery disease TECHNIQUE: After the intravenous administration of 9.9 mCi Tc 99m Sestamibi - Cardiolite resting SPE CT images acquired 45 minutes post injection. The patient received 0.4mg Lexiscan, 25.2 mCi Tc 99m Sestamibi - Stress images obtained [address] injection FINDINGS: Review of stress and rest SPECT images demonstrates no distinct perfusion abnormality. Gated analysi s shows normal wall motion with an estimated left ventricular ejection fraction of 61 %. TID is calcu lated at 1.03, within normal limits. IMPRESSION: No scintigraphic evidence for reversible ischemia.
--- NOTE | 2019-02-03 12:45 | EST ---
EXERCISE STRESS DATE OF SERVICE: 02/03/2019 AGE: 63 SEX: Female HT: 5'1" WT: 165 pounds PROTOCOL: Lexiscan Cardiolite STAGE: DURATION OF EXERCISE: HEART RATE REST: 59 BLOOD PRESSURE REST: 150/73 MAXIMUM HEART RATE ACHIEVED: 80 MAXIMUM BLOOD PRESSURE: 160/76 85% MPHR: 133 100% MPHR: 156 METS: INDICATIONS: CLINICAL INFORMATION: This is a Lexiscan stress test. Baseline EKG revealed a normal sinus rhythm without significant ST-T changes. With Lexiscan administration heart rate changed from 59 to 80 beats per minute. Blood pressure changed from 150/73 to 160/76. EKG did not reveal any ST-segment changes to indicate ischemia. By EKG criteria, this is considered as a unremarkable Lexiscan stress test. The nuclear scan results which are more pertinent will be reported by the radiologist. PATRICK / DM: [id number] /
== END | disposition home or self-care (01) ==
LOC: RADNMMAIN 08:07
PROVIDERS: ATTEND Family Medicine
DX: I25.10 Atherosclerotic heart disease of native coronary artery without angina pectoris (principal)
CPT/HCPCS: 93017; 78452; A9500; J2785

== ENCOUNTER → 2019-02-27 | Outpatient (CLI) | payer MEDICARE, OTHER ==
[2019-02-27 09:53] LABS: Blood Urea Nitrogen 16 mg/dL (7-17)
== END | disposition home or self-care (01) ==
LOC: LABWHC1 08:44
PROVIDERS: ATTEND Physician Assistant
DX: Z01.812 Encounter for preprocedural laboratory examination (principal); N28.9 Disorder of kidney and ureter, unspecified
CPT/HCPCS: 36415; 82565; 84520

== ENCOUNTER 2019-04-06 06:44 | Day surgery (SDC) | payer MEDICARE, OTHER ==
[2019-03-30 15:52] VITALS: BMI 30.2
[~2019-04-06 06:44] MED LIST changes: +LACTATED RINGERS 1,000 ML IV SCH; +LIDOCAINE 1% 20 ML VIAL (10MG/ML) FOR IV START INTRADERMA PRN; -REGADENOSON 0.4 MG/5 ML SYRINGE IV ONE
[2019-04-06 07:14] VITALS: TEMP 96.6
[2019-04-06 07:24] LABS: Glucose,Whole Blood 114 mg/dL (75-99)
[2019-04-06] MEDS ORDERED: LIDOCAINE 1% INJ 10MG/ML (20 ML MDV) ONE (07:40)
[2019-04-06] MEDS ORDERED: PROPOFOL 10 MG/ML 20 ML VIAL IV ONE (07:40)
--- NOTE | 2019-04-06 07:50 | P.GSHP ---
History of Present Illness H&P Date: 04/06/19 Chief Complaint: Screening colonoscopy This is a 63-year-old female who presents today for screening colonoscopy. Patient denies a significant jet device. She states her last colonoscopy approximately 5 years ago. She has history of polyps. Past Medical History Past Medical History: Coronary Artery Disease (CAD), COPD, Dementia, Diabetes Mellitus, Eye Disorder, Hyperlipidemia, Hypertension, Osteoarthritis (OA), Sleep Apnea/CPAP/BIPAP Additional Past Medical History / Comment(s): NIDDM type II, generalized neuropathy per pt, beginnings of glaucoma and macular degeneration bilateral eyes, JANA with Cpap, chronic low back pain, DDD, benign colon polyp, external hemorrhoids. EARLY DEMENTIA. History of Any Multi-Drug Resistant Organisms: None Reported Past Surgical History: Appendectomy, Back Surgery, Bariatric Surgery, Hysterectomy, Joint Replacement, Orthopedic Surgery Additional Past Surgical History / Comment(s): Antoine en Y, EGDs-had sclerotherapy with one egd, colonoscopies, benign polypectomy, sigmoidoscopy, bilateral total knees with R total knee revision, L carpal tunnel release, low back surgery with sciatic nerve involved, Cervical fusion. Past Anesthesia/Blood Transfusion Reactions: Previous Problems w/ Anesthesia, Family History of Problems w/ Anesthesia Additional Past Anesthesia/Blood Transfusion Reaction / Comment(s): Pt states she had low oxygen after bariatric surgery that took a long time to resolve. Sister is allergic to a lot of "pain meds, had problems." Smoking Status: Former smoker - Past Family History Mother Family Medical History: Cancer Additional Family Medical History / Comment(s): Several types of cancer Father Family Medical History: Cancer Additional Family Medical History / Comment(s): Skin Cancer Sister(s) Family Medical History: Cancer Additional Family Medical History / Comment(s): Sister had "spider" cancer. Medications and Allergies Home Medications Medication Instructions Recorded Confirmed Type DULoxetine HCL [Cymbalta] 60 mg PO BID 03/26/14 04/06/19 History Simvastatin [Zocor] 80 mg PO HS 03/26/14 04/06/19 History metFORMIN HCL [Glucophage] 1,000 mg PO BID 03/26/14 04/06/19 History Benazepril HCl [Lotensin] 20 mg PO QAM 04/10/15 04/06/19 History Linagliptin [Tradjenta] 5 mg PO QAM 04/10/15 04/06/19 History ARIPiprazole [Abilify] 20 mg PO QAM 02/01/18 04/06/19 History Donepezil [Aricept] 15 mg PO QAM 02/01/18 04/06/19 History HYDROcodone/APAP 10-325MG [[place] 1 tab PO TID 02/01/18 04/06/19 History 10-325] Meloxicam [Mobic] 15 mg PO QAM 02/01/18 04/06/19 History Montelukast [Singulair] 10 mg PO HS 02/01/18 04/06/19 History Dextroamphetamine/Amphetamine 20 mg PO BID PRN 03/30/19 04/06/19 History [Adderall] amLODIPine [Norvasc] 5 mg PO QAM 03/30/19 04/06/19 History buPROPion SR [Wellbutrin Sr] 150 mg PO QAM 03/30/19 04/06/19 History Allergies Allergy/AdvReac Type Severity Reaction Status Date / Time hydroxyzine HCl Allergy Unknown Verified 04/05/19 08:26 [From Vistaril] hydroxyzine pamoate Allergy Unknown Verified 04/05/19 08:26 [From Vistaril] propranolol HCl Allergy Unknown Verified 04/05/19 08:26 [From Inderal LA] Surgical - Exam Vital Signs Temp Pulse Resp BP Pulse Ox 96.6 F L 65 18 155/67 98 04/06/19 07:12 04/06/19 07:12 04/06/19 07:12 04/06/19 07:12 04/06/19 07:12 - General well developed, well nourished, no distress - Eyes PERRL - ENT normal pinna - Neck no masses - Respiratory normal expansion - Cardiovascular Rhythm: regular - Abdomen Abdomen: soft, non tender Results - Labs Abnormal Lab Results - Last 24 Hours (Table) 04/06/19 Range/Units 07:19 POC Glucose (mg/dL) 114 H (75-99) mg/dL Assessment and Plan Assessment: Perform screening colonoscopy.
[2019-04-06 08:21] VITALS: RESP 16
[2019-04-06 08:31] VITALS: BP 132/74; PULSE 77
--- NOTE | 2019-04-06 09:20 | P.OP ---
Date of Procedure: 04/06/19 Preoperative Diagnosis: Screening colonoscopy History: Polyps Postoperative Diagnosis: Mild diverticulosis Procedure(s) Performed: Colonoscopy Anesthesia: MAC Surgeon: Tyrel Bolden Pathology: none sent Condition: stable Disposition: PACU Description of Procedure: he patient's placed on the endoscopy table in the lateral position. She received IV sedation. Digital rectal exam was performed and this revealed no abnormalities. Flexible colonoscope was then placed patient anus and passed with colon. The colon was quite tortuous. The ileocecal valve was not visualized. Secondary to tortuosity valve. The scope was withdrawn the remainder the ascending colon and transverse colon appeared normal. In the descending and sigmoid colon a few scattered diverticula. There were no polyps seen. The scope was then brought back the rectum and this appeared normal. Scope was withdrawn for patient.
== END 2019-04-06 09:11 | disposition home or self-care (01) ==
LOC: ORWHC2ENDO 06:44
PROVIDERS: ATTEND Surgery
DX: Z12.11 Encounter for screening for malignant neoplasm of colon (principal); K57.30 Diverticulosis of large intestine without perforation or abscess without bleeding; I25.10 Atherosclerotic heart disease of native coronary artery without angina pectoris; J44.9 Chronic obstructive pulmonary disease, unspecified; H40.9 Unspecified glaucoma; I10 Essential (primary) hypertension; E78.5 Hyperlipidemia, unspecified; F03.90 Unspecified dementia, unspecified severity, without behavioral disturbance, psychotic disturbance, mood disturbance, and anxiety; E11.42 Type 2 diabetes mellitus with diabetic polyneuropathy; E11.39 Type 2 diabetes mellitus with other diabetic ophthalmic complication; H42 Glaucoma in diseases classified elsewhere; G47.33 Obstructive sleep apnea (adult) (pediatric); M19.90 Unspecified osteoarthritis, unspecified site; G89.29 Other chronic pain; Z98.1 Arthrodesis status; Z98.84 Bariatric surgery status; Z79.84 Long term (current) use of oral hypoglycemic drugs; Z86.010 Personal history of colon polyps; Z87.891 Personal history of nicotine dependence; Z79.1 Long term (current) use of non-steroidal anti-inflammatories (NSAID); Z79.899 Other long term (current) drug therapy; Z79.891 Long term (current) use of opiate analgesic; Z99.89 Dependence on other enabling machines and devices
CPT/HCPCS: J2001; J2704; G0105

== ENCOUNTER → 2019-08-31 | Outpatient (CLI) | payer MEDICARE, OTHER ==
--- NOTE | 2019-08-31 16:41 | CONS ---
CONSULTATION DATE OF SERVICE: 08/31/2019 This patient is a 64-year-old lady who has been evaluated in [facility] for obstructive sleep apnea-hypopnea syndrome. HISTORY OF PRESENT ILLNESS/SLEEP-WAKE EVALUATION: Patient has history of obstructive sleep apnea since 2009. Since that time, she has been on treatment with CPAP. She continued to use CPAP for 8 years, but several months ago her CPAP unit was broken. At present her sleep schedule is from 5:30 p.m. to 10 p.m. on weekdays; on days when she is not working, from 11:30 p.m. until 6 a.m. Sometimes she has problems with falling asleep. She has a TV set in the bedroom. She sleeps in different positions. She snores and wakes up from sleep about 4 times with 4 episodes of nocturia. She worries about her sleep. She has episodes of depression and anxiety. [place] Sleepiness Scale is 7. PAST MEDICAL HISTORY: Past medical history is positive for hypertension, diabetes mellitus, polyarthritis, hyperlipidemia, depression, bipolar disorder. PAST SURGICAL HISTORY: Neck surgery in 2008. MEDICATIONS: 1. Duloxetine. 2. Aripiprazole. 3. Tradjenta. 4. Donepezil. 5. Montelukast. 6. Benazepril. 7. Metformin. 8. Meloxicam. 9. Adderall 20 mg 2 times a day. For the last month patient did not take it. 10.Norvasc. 11.[place]. 12.Wellbutrin. SOCIAL HISTORY: Positive for smoking for about 15 years up to 2-1/2 packs a day; quit in 1984. Alcohol consumption none. FAMILY HISTORY: Hypertension, heart problems, hyperlipidemia, stroke, arthritis, sinus problems, sleep apnea, cancer, headaches, diabetes, acid reflux, mental illness. PHYSICAL EXAMINATION: GENERAL: A pleasant lady without distress. VITAL SIGNS: BP 159/68, HR 82, RR 16, height 5 feet 1 inch, weight 185, body mass index 34.9, temperature 98.0, oxygen saturation at room air 98%. HEENT: PERRLA, EOMI. Evaluation of oropharynx showed tongue protrudes midline. Extremely low position of soft palate. Mallampati IV. Restriction of nasal breathing. NECK: Supple. No JVD. Thyroid is not palpable. Neck measures 14-1/2 inches in circumference. LUNGS: Clear to percussion and to auscultation. Good air exchange. No wheezing or rhonchi. HEART: S1, S2 regular. No murmurs, gallops or rubs. ABDOMEN: Obese. EXTREMITIES: Very minimal to 1+ swelling of ankles. IMPRESSION: 1. History of obstructive sleep apnea-hypopnea syndrome for more than 8 years, snoring, extremely low position of soft palate, Mallampati IV, awakenings from sleep multiple times with nocturia; obstructive sleep apnea-hypopnea syndrome. 2. Obesity; body mass index 34.9. 3. History of polyarthritis, especially back and neck. 4. Hypertension. 5. Diabetes mellitus. 6. Hyperlipidemia. 7. History of depression. 8. History of bipolar disorder. 9. Status post neck surgery in 2008. PLAN: 1. CPAP titration for reevaluation of effective CPAP pressure at the present time. Previous sleep study was done in 2009. 2. Patient will receive a new CPAP unit and all necessary CPAP supplies. 3. Losing weight. 4. Sleep hygiene with regular time in bed for at least 7-1/2 to 8 hours. 5. No driving if feeling any sleepiness. Thank you very much for allowing me to participate in the management of your patient. Sincerely, Abdias House MD, PhD, FAASM Diplomat of [place] [employer] [place] [employer] [facility] [place] MMODL / KADENN: [id number] /
== END ==
LOC: SLEEP 14:34
PROVIDERS: ATTEND Internal Medicine
DX: G47.33 Obstructive sleep apnea (adult) (pediatric) (principal); E66.9 Obesity, unspecified; I10 Essential (primary) hypertension; E11.9 Type 2 diabetes mellitus without complications; E03.9 Hypothyroidism, unspecified; Z86.59 Personal history of other mental and behavioral disorders; Z68.34 Body mass index [BMI] 34.0-34.9, adult; Z87.39 Personal history of other diseases of the musculoskeletal system and connective tissue; Z98.890 Other specified postprocedural states; Z87.891 Personal history of nicotine dependence; Z79.899 Other long term (current) drug therapy; Z79.891 Long term (current) use of opiate analgesic; Z79.1 Long term (current) use of non-steroidal anti-inflammatories (NSAID); Z79.84 Long term (current) use of oral hypoglycemic drugs
CPT/HCPCS: 99211

== ENCOUNTER 2019-10-04 08:26 | Day surgery (SDC) | payer MEDICARE, OTHER ==
[2019-10-02 10:55] VITALS: BMI 34.0
[~2019-10-04 08:26] MED LIST changes: -LIDOCAINE 1% 20 ML VIAL (10MG/ML) FOR IV START INTRADERMA PRN
[2019-10-04 08:45] VITALS: RESP 16; TEMP 98.4
[2019-10-04] MEDS ORDERED: LIDOCAINE 1% 20 ML VIAL (10MG/ML) FOR IV START INTRADERMA ONE (08:49)
[2019-10-04] MEDS ORDERED: LIDOCAINE 1% INJ 10MG/ML (20 ML MDV) ONE (08:55)
[2019-10-04] MEDS ORDERED: PROPOFOL 10 MG/ML 20 ML VIAL IV ONE (08:55)
[2019-10-04 08:57] LABS: Glucose,Whole Blood 148 mg/dL (75-99)
--- NOTE | 2019-10-04 09:06 | P.GSHP ---
History of Present Illness H&P Date: 10/04/19 Chief Complaint: GERD this is a 64-year-old female who presents today for EGD. She's had issues with GERD. Patient is. History of gastric bypass. Past Medical History Past Medical History: Coronary Artery Disease (CAD), COPD, Dementia, Diabetes Mellitus, Eye Disorder, Hyperlipidemia, Hypertension, Osteoarthritis (OA), Sleep Apnea/CPAP/BIPAP Additional Past Medical History / Comment(s): NIDDM type II, generalized neuropathy per pt, beginnings of glaucoma and macular degeneration bilateral eyes, JANA with Cpap, chronic low back pain, DDD, external hemorrhoids. EARLY DEMENTIA. States does not use CPAP @ this time.States having stomach pain @ times. History of Any Multi-Drug Resistant Organisms: None Reported Past Surgical History: Appendectomy, Back Surgery, Bariatric Surgery, Hysterectomy, Joint Replacement, Orthopedic Surgery Additional Past Surgical History / Comment(s): Antoine en Y, EGDs-had sclerotherapy with one egd, colonoscopies, benign polypectomy, sigmoidoscopy, bilateral total knees with R total knee revision, L carpal tunnel release, low back surgery with sciatic nerve involved, Cervical fusion. Past Anesthesia/Blood Transfusion Reactions: Previous Problems w/ Anesthesia, Family History of Problems w/ Anesthesia Additional Past Anesthesia/Blood Transfusion Reaction / Comment(s): Pt states she had low oxygen after bariatric surgery that took a long time to resolve. Sister is allergic to a lot of "pain meds, had problems." Smoking Status: Former smoker - Past Family History Mother Family Medical History: Cancer Additional Family Medical History / Comment(s): Several types of cancer Father Family Medical History: Cancer Additional Family Medical History / Comment(s): Skin Cancer Sister(s) Family Medical History: Cancer Additional Family Medical History / Comment(s): Sister had "spider" cancer. Medications and Allergies Home Medications Medication Instructions Recorded Confirmed Type DULoxetine HCL [Cymbalta] 60 mg PO BID 03/26/14 10/04/19 History Simvastatin [Zocor] 80 mg PO HS 03/26/14 10/04/19 History metFORMIN HCL [Glucophage] 1,000 mg PO BID 03/26/14 10/04/19 History Benazepril HCl [Lotensin] 20 mg PO QAM 04/10/15 10/02/19 History Linagliptin [Tradjenta] 5 mg PO QAM 04/10/15 10/04/19 History ARIPiprazole [Abilify] 20 mg PO QAM 02/01/18 10/04/19 History Donepezil [Aricept] 15 mg PO QAM 02/01/18 10/04/19 History HYDROcodone/APAP 10-325MG [[place] 1 tab PO TID PRN 02/01/18 10/04/19 History 10-325] Meloxicam [Mobic] 15 mg PO QAM 02/01/18 10/04/19 History Montelukast [Singulair] 10 mg PO HS 02/01/18 10/04/19 History Dextroamphetamine/Amphetamine 20 mg PO BID PRN 03/30/19 10/04/19 History [Adderall] amLODIPine [Norvasc] 5 mg PO QAM 03/30/19 10/04/19 History buPROPion SR [Wellbutrin Sr] 150 mg PO QAM 03/30/19 10/04/19 History Allergies Allergy/AdvReac Type Severity Reaction Status Date / Time hydroxyzine HCl Allergy Unknown Verified 10/04/19 08:35 [From Vistaril] hydroxyzine pamoate Allergy Unknown Verified 10/04/19 08:35 [From Vistaril] propranolol HCl Allergy Unknown Verified 10/04/19 08:35 [From Inderal LA] Surgical - Exam Vital Signs Temp Pulse Resp BP Pulse Ox 98.4 F 75 16 152/72 96 10/04/19 08:40 10/04/19 08:40 10/04/19 08:40 10/04/19 08:40 10/04/19 08:40 - General well developed, well nourished, no distress - Eyes PERRL - ENT normal pinna - Neck no masses - Respiratory normal expansion - Cardiovascular Rhythm: regular - Abdomen Abdomen: soft, non tender Results - Labs Abnormal Lab Results - Last 24 Hours (Table) 10/04/19 Range/Units 08:49 POC Glucose (mg/dL) 148 H (75-99) mg/dL Assessment and Plan Assessment: GERD. We'll perform EGD.
--- NOTE | 2019-10-04 09:12 | P.OP ---
Date of Procedure: 10/04/19 Preoperative Diagnosis: GERD Postoperative Diagnosis: mild esophagitis No evidence of gastrojejunostomy obstruction Procedure(s) Performed: EGD Anesthesia: MAC Surgeon: Tyrel Bolden Pathology: other (esophagus) Condition: stable Description of Procedure: the patient's placed on the endoscopy tablein the lateral position. She received IV sedation. The gastroscope placed oropharynx and then passed in the esophagus into the stomach. the patient a previous gastric bypass. The gastrojejunostomy was visualized. This was just below the GE junction. There is no evidence of any inflammatory changes of the gastric jejunostomy. Scope summer back and the stomach. The gastric pouch appeared mildly distended. The GE junction was at 40 cm the distal esophagus appeared minimally inflamed a biopsies performed. The proximal esophagus appeared normal. Scope was withdrawn for patient.
[2019-10-04 09:22] VITALS: BP 126/71; PULSE 72
== END 2019-10-04 09:42 | disposition home or self-care (01) ==
LOC: ORWHC2ENDO 08:26
PROVIDERS: ATTEND Surgery
DX: K21.9 Gastro-esophageal reflux disease without esophagitis (principal); I25.10 Atherosclerotic heart disease of native coronary artery without angina pectoris; J44.9 Chronic obstructive pulmonary disease, unspecified; F03.90 Unspecified dementia, unspecified severity, without behavioral disturbance, psychotic disturbance, mood disturbance, and anxiety; E11.40 Type 2 diabetes mellitus with diabetic neuropathy, unspecified; E78.5 Hyperlipidemia, unspecified; I10 Essential (primary) hypertension; M19.90 Unspecified osteoarthritis, unspecified site; G47.33 Obstructive sleep apnea (adult) (pediatric); E11.39 Type 2 diabetes mellitus with other diabetic ophthalmic complication; H42 Glaucoma in diseases classified elsewhere; H35.30 Unspecified macular degeneration; G89.29 Other chronic pain; M54.9 Dorsalgia, unspecified; K64.4 Residual hemorrhoidal skin tags; F41.9 Anxiety disorder, unspecified; F32.9 Major depressive disorder, single episode, unspecified; Z90.49 Acquired absence of other specified parts of digestive tract; Z98.84 Bariatric surgery status; Z90.710 Acquired absence of both cervix and uterus; Z96.653 Presence of artificial knee joint, bilateral; Z98.890 Other specified postprocedural states; Z86.010 Personal history of colon polyps; Z98.1 Arthrodesis status; Z91.89 Other specified personal risk factors, not elsewhere classified; Z87.891 Personal history of nicotine dependence; Z79.899 Other long term (current) drug therapy; Z79.84 Long term (current) use of oral hypoglycemic drugs; Z79.891 Long term (current) use of opiate analgesic; Z79.1 Long term (current) use of non-steroidal anti-inflammatories (NSAID); Z88.8 Allergy status to other drugs, medicaments and biological substances; Z97.2 Presence of dental prosthetic device (complete) (partial); Z84.89 Family history of other specified conditions; Z80.9 Family history of malignant neoplasm, unspecified; Z80.8 Family history of malignant neoplasm of other organs or systems
CPT/HCPCS: 88305; 43239; J2001; J2704

== ENCOUNTER → 2019-10-12 | Outpatient (CLI) | payer MEDICARE, OTHER ==
--- NOTE | 2019-10-13 12:46 | MM ---
Reason for exam: screening (asymptomatic). Last mammogram was performed 1 year and 3 months ago. History: Patient is postmenopausal. Family history of premenopausal breast cancer in sister, premenopausal breast cancer in mother, and breast cancer in sister. Benign right mammotome panel of the right breast, May 24, 2009. Took estrogen for 3 years beginning at age 31. Physical Findings: A clinical breast exam by your physician is recommended on an annual basis and results should be correlated with mammographic findings. MG 3D Screening Mammo W/Cad Bilateral CC and MLO view(s) were taken. Prior study comparison: July 19, 2018, bilateral MG 3d screening mammo w/cad. June 07, 2017, bilateral MG 3d screening mammo w/cad. The breast tissue is heterogeneously dense. This may lower the sensitivity of mammography. There are benign appearing round dystrophic calcifications bilaterally. Previous mammotome biopsy in the right breast. There is no discrete abnormality. ASSESSMENT: Benign, BI-RAD 2 RECOMMENDATION: Routine screening mammogram of both breasts in 1 year.
== END | disposition home or self-care (01) ==
LOC: RADMAMWWP 10:18
PROVIDERS: ATTEND Family Medicine
DX: Z12.31 Encounter for screening mammogram for malignant neoplasm of breast (principal); Z80.3 Family history of malignant neoplasm of breast
CPT/HCPCS: 77063; 77067

== ENCOUNTER → 2019-11-03 | Outpatient (CLI) | payer MEDICARE, OTHER ==
[2019-11-03 17:16] LABS: African American GFR (CKD) >90 (>60 ml/min/1.73 sqM); Blood Urea Nitrogen 12 mg/dL (7-17); Non-African American GFR(CKD) 80 (>60 ml/min/1.73 sqM)
--- NOTE | 2019-11-04 13:28 | CT ---
EXAMINATION TYPE: CT abdomen pelvis w con DATE OF EXAM: 11/03/2019 COMPARISON: None HISTORY: Abdominal and pelvic pain CT DLP: 1420.20 mGycm Automated exposure control for dose reduction was used. TECHNIQUE: Helical acquisition of images from the lung bases through the pelvis have been completed. CONTRAST: Performed with Oral Contrast and with IV Contrast, patient injected with 100 mL of Isovue 300. FINDINGS: Postop changes are noted to the stomach. LUNG BASES: No significant abnormality is appreciated. AORTA: No significant abnormality is appreciated. LIVER/GB: No significant abnormality is appreciated. PANCREAS: No significant abnormality is seen. SPLEEN: No significant abnormality is seen. Probable splenule noted towards the hilum measuring appro ximately 12 mm ADRENALS: No significant abnormality is seen. KIDNEYS: Parapelvic cysts are noted bilaterally. Cortical cyst also associated with the left kidney, the largest measures 2 cm and shows borderline increased attenuation REPRODUCTIVE ORGANS: Uterus is not seen, suspect left ovarian tissue or adnexal structures remain in place, right ovary not seen definitively BOWEL: There is some fluid-filled loops of small bowel present. No evident obstruction. Low-attenuat ion within the cecum likely represents bowel content but is indeterminate. FREE AIR: No Free Air visible. ASCITES: None visible. PELVIC ADENOPATHY: None visualized. RETROPERITONEAL ADENOPATHY: No Retroperitoneal Adenopathy visible. URINARY BLADDER: No significant abnormality is seen. OSSEOUS STRUCTURES: Probable bone island present within the right and left ilium, degenerative disc changes, facet arthropathy noted in the lumbar spine, there is a spinal curvature. IMPRESSION: POSTOP CHANGES. CORRELATE FOR POSSIBLE ILEUS OR ENTERITIS. ADDITIONAL FINDINGS ABOVE. NONSPECIFIC FIN DINGS.
== END | disposition home or self-care (01) ==
LOC: RADCTMAIN 16:11
PROVIDERS: ATTEND Family Medicine
DX: R10.9 Unspecified abdominal pain (principal); Z98.890 Other specified postprocedural states
CPT/HCPCS: 82565; 84520; 74177; 36415; Q9967

== ENCOUNTER → 2019-12-13 | Outpatient (CLI) | payer MEDICARE, OTHER ==
--- NOTE | 2019-12-13 16:59 | P.PN ---
Progress Note - Text Progress Note Date: 12/13/19 Patient not seen due to cancellation from emergency surgery
== END | disposition home or self-care (01) ==
LOC: BARWHC3 15:39
PROVIDERS: ATTEND Surgery Plastic and Reconstructive Surgery
DX: Z53.8 Procedure and treatment not carried out for other reasons (principal)

== ENCOUNTER → 2019-12-20 | Outpatient (CLI) | payer MEDICARE, OTHER ==
[2019-12-20 16:10] VITALS: BP 135/76; PULSE 61; RESP 16; TEMP 97.5; BMI 35.8
--- NOTE | 2019-12-20 17:55 | P.HPBAR ---
Bariatric H&P - History & Physicial H&P Date: 12/20/19 History & Physicial: Visit/CC: Ben Consult Patient initial contact: Initial weight: 120.202 kg Initial weight in pounds: 265.00 Height: 5 ft 1 in Initial BMI: 50.1 Last weight: Current weight: 85.927 kg Current weight in pounds: 189.44 Current BMI: 35.8 [place] body weight (based on NIH guidelines): 47.627 kg Excess body weight loss: 47.2% The patient is a 64 year-old F who presents for Bariatric Assessment. HPI: She had a bypass Dr stevenson. She got down to 160 pounds, now 189 pounds. Lowest weight 160 pounds. Highest 265 pounds. Her surgery was 4+ years ago, 2015. Will need records. She reports no problems from her her surgery. She had epigastric pain of the abdomen. She had a CT scan. Protein intake is insufficienct 1. Recommend labs 2. [employer] Specialist visits 3. Get EGD Past Medical History Past Medical History: Coronary Artery Disease (CAD), COPD, Dementia, Diabetes Mellitus, Eye Disorder, Hyperlipidemia, Hypertension, Osteoarthritis (OA), Sleep Apnea/CPAP/BIPAP Additional Past Medical History / Comment(s): NIDDM type II, generalized neuropathy per pt, beginnings of glaucoma and macular degeneration bilateral eyes, JANA with Cpap, chronic low back pain, DDD, external hemorrhoids. EARLY DEMENTIA. States does not use CPAP @ this time.States having stomach pain @ times. History of Any Multi-Drug Resistant Organisms: None Reported Past Surgical History: Appendectomy, Back Surgery, Bariatric Surgery, Hysterectomy, Joint Replacement, Orthopedic Surgery Additional Past Surgical History / Comment(s): Antoine en Y, EGDs-had sclerotherapy with one egd, colonoscopies, benign polypectomy, sigmoidoscopy, bilateral total knees with R total knee revision, L carpal tunnel release, low back surgery with sciatic nerve involved, Cervical fusion. Past Anesthesia/Blood Transfusion Reactions: Previous Problems w/ Anesthesia, Family History of Problems w/ Anesthesia Additional Past Anesthesia/Blood Transfusion Reaction / Comm: Pt states she had low oxygen after bariatric surgery that took a long time to resolve. Sister is allergic to a lot of "pain meds, had problems." Past Psychological History: Anxiety, Depression Additional Psychological History / Comment(s): Pt has her adult amparo living with her. She has a cane and a walker which she uses prn. Smoking Status: Former smoker Past Alcohol Use History: None Reported Additional Past Alcohol Use History / Comment(s): Quit smoking in 1984, smoked for 15-20 yrs. Past Drug Use History: None Reported - Past Family History Mother Family Medical History: Cancer Additional Family Medical History / Comment(s): Several types of cancer Father Family Medical History: Cancer Additional Family Medical History / Comment(s): Skin Cancer Sister(s) Family Medical History: Cancer Additional Family Medical History / Comment(s): Sister had "spider" cancer. Surgical - Exam Vital Signs Temp Pulse Resp BP 97.5 F L 61 16 135/76 12/20/19 16:07 12/20/19 16:07 12/20/19 16:07 12/20/19 16:07 Bariatric Checklist Checklist: Plan: Checklist: EGD: 1. Hiatal hernia: 2. H. Pylori: HgbA1c: Vitamin D: Smoking: Former smoker Primary care physician referral: Psychiatry clearance: Cardiology clearance: Sleep study: Diet journal: VTE risk score: VTE risk level: Rehab needs at discharge:
== END | disposition home or self-care (01) ==
LOC: BARWHC3 15:36
PROVIDERS: ATTEND Surgery Plastic and Reconstructive Surgery
DX: Z48.815 Encounter for surgical aftercare following surgery on the digestive system (principal); R10.13 Epigastric pain; Z90.49 Acquired absence of other specified parts of digestive tract; Z98.84 Bariatric surgery status; Z87.891 Personal history of nicotine dependence
CPT/HCPCS: 99211

== ENCOUNTER → 2019-12-28 | Outpatient (CLI) | payer MEDICARE, OTHER ==
--- NOTE | 2019-12-28 12:28 | SFUN ---
SLEEP CENTER FOLLOW UP NOTE DATE OF SERVICE: 12/28/2019 This 64-year-old lady had been followed in the Sleep Center for treatment of obstructive sleep apnea-hypopnea syndrome. Today is her first visit after she received her new CPAP equipment. The patient is able to use CPAP equipment without significant problems. She likes her machine. She sleeps better with that. She feels better in the morning, but sometimes when she is working she falls asleep at night before putting her mask on. [place] Sleepiness Scale today is 14. I checked CPAP unit. CPAP pressure is 10 cm of water. Usage for the last month is 18 out of 30 nights and 11 out of 30 nights more than 4 hours with average usage 4.6 hours. Leak is 18 L/minute, which is acceptable. Apnea-hypopnea index is 4.0, which is in normal range. MEDICATIONS: Duloxetine, aripiprazole, donepezil, Tradjenta, montelukast, benazepril, metformin, meloxicam, Adderall, Norvasc, Narvon, Wellbutrin. PHYSICAL EXAMINATION: During physical exam, patient in no distress. VITAL SIGNS: BP 131/64, HR 74, RR 16, weight 190.4, temperature is 97.8, oxygen saturation at room air 96%. HEENT: PERRLA, EOMI. Oropharynx low position of soft palate. NECK: Supple, no JVD. Thyroid is not palpable. LUNGS: Clear to percussion and to auscultation. Good air exchange. No wheezing or rhonchi. HEART: S1, S2 regular. No murmurs, gallops, or rubs. ABDOMEN: Slightly obese. EXTREMITIES: No clubbing or cyanosis. HOG DRIVER: Awake, alert, and oriented X3. Cranial nerves 2 to 7 intact. There is no fasciculation or atrophy. noted. No focal deficits observed. IMPRESSION: 1. Obstructive sleep apnea-hypopnea syndrome on control with CPAP at 10 cm of water. 2. Obesity. 3. Hypertension. 4. History of polyarthritis. 5. Diabetes mellitus. 6. Hyperlipidemia. 7. History of bipolar disorder. 8. History of depression. 9. Status post neck surgery in 2008. PLAN: 1. Patient will continue to use CPAP equipment every night for the whole night. 2. Watching and losing weight. 3. Sleep hygiene with regular time in bed for at least 7-1/2 or 8 hours. 4. No driving if feeling sleepiness. Thank you very much for allowing me to participate in management of your patient. Sincerely, Abdias House MD, PhD, FAASM Diplomat of [employer] [facility] [place] MMBIJAN / DM: [phone] /
== END | disposition home or self-care (01) ==
LOC: SLEEP 11:11
PROVIDERS: ATTEND Internal Medicine
DX: G47.33 Obstructive sleep apnea (adult) (pediatric) (principal); E66.9 Obesity, unspecified; I10 Essential (primary) hypertension; E11.9 Type 2 diabetes mellitus without complications; E78.5 Hyperlipidemia, unspecified; Z87.39 Personal history of other diseases of the musculoskeletal system and connective tissue; Z86.59 Personal history of other mental and behavioral disorders; Z98.1 Arthrodesis status; Z79.84 Long term (current) use of oral hypoglycemic drugs; Z79.891 Long term (current) use of opiate analgesic; Z79.1 Long term (current) use of non-steroidal anti-inflammatories (NSAID); Z79.899 Other long term (current) drug therapy

== ENCOUNTER → 2021-01-16 | Outpatient (CLI) | payer MEDICARE, OTHER ==
--- NOTE | 2021-01-16 11:08 | XR ---
EXAMINATION TYPE: XR chest 2V DATE OF EXAM: 01/16/2021 COMPARISON: 08/24/2018 INDICATION: History of smoking yearly physical TECHNIQUE: Frontal and lateral views of the chest are obtained. FINDINGS: The heart size is normal. The pulmonary vasculature is normal. There is a 0.6 cm nodule within the left upper lobe near the first rib and. This was present previous ly. Lungs otherwise appear clear. IMPRESSION: 1. Stable nodule left upper lobe. 2. Evaluation of the patient for qualification for low-dose CT chest screening
== END | disposition home or self-care (01) ==
LOC: RADXRMAIN 10:26
PROVIDERS: ATTEND Family Medicine
DX: R91.1 Solitary pulmonary nodule (principal); Z87.891 Personal history of nicotine dependence
CPT/HCPCS: 71046

== ENCOUNTER → 2021-01-27 | Outpatient (CLI) | payer MEDICARE, OTHER ==
--- NOTE | 2021-01-27 12:14 | BD ---
EXAMINATION TYPE: Axial Bone Density DATE OF EXAM: 01/27/2021 COMPARISON: DEXA bone scan 2012 CLINICAL HISTORY: Osteoporosis per order. Postmenopausal female. Height: 4 FT 11 1/2 IN Weight: 167 FRAX RISK QUESTIONS: Alcohol (3 or more units per day): NO Family History (Parent hip fracture): NO Glucocorticoids (More than 3mos): NO (Ex: prednisone, prednisolone, methylprednisolone, dexamethasone, and hydrocortisone). History of Fracture in Adulthood: YES Secondary Osteoporosis: 1. Type 1 Diabetes: NO 2. Hyperthyroidism: NO 3. Menopause before 45: YES 4. Malnutrition: NO 5. Chronic liver disease: NO Rheumatoid Arthritis: NO Current Tobacco Use: NO RISK FACTORS HISTORY OF: Surgery to Spine/Hip(right/left)/Wrist (right/left): NO Family History of Osteoporosis: YES Active: YES Diet low in dairy products/other sources of calcium: NO Postmenopausal woman: TOTAL HYST IN HER 30'S Take estrogen and/or progesterone medications: TOOK HRT FOR APPROX ONE YEAR AROUND AGE 32 NO LONGER T AKES Lost more than 2 inches in height since high school: YES MEDICATIONS: Additional Medications: DULOXETINE, ARIPOPRAZOLE, TRAJENTA,DONEPEZIL, MONTELUKAST, BENAZEPRIL, METFOR MIN, MELOXICAM, ADDERALL, NORVASC, NORCO, WELLBUTRIN, Additional History: EXAM MEASUREMENTS: Bone mineral densitometry was performed using the Plex System. Bone mineral density as measured about the Lumbar spine is: ----- L1-L4(G/cm2): 1.175 T Score Values are as follows: ----- L2: -0.2 ----- L3: 0.2 ----- L4: 0.7 ----- L1-L4: 0.0 Bone mineral density has: DECREASED -1.4 % since study of: 2012 Bone mineral density about the R hip (g/cm2): 0.706 Bone mineral density about the L hip (g/cm2): 0.717 T Score values are as follows: -----R Neck: -2.4 -----L Neck: -2.3 -----R Total: -2.0 -----L Total: -1.9 Bone mineral density has DECREASED -15.6: % since study of: 2013 IMPRESSION: Osteopenia (T Score between -2.5 and -1) femoral neck level in both hips. Bone density decreased or d iminished from 2013. There remains slightly increased risk of fracture and the patient may be considered for treatment. Re-Screen 2-5 years. NOTE: T-SCORE=SD OF THE YOUNG ADULT MEAN.
--- NOTE | 2021-01-28 12:29 | MM ---
Reason for exam: screening (asymptomatic). Last mammogram was performed 1 year and 4 months ago. History: Patient is postmenopausal. Family history of premenopausal breast cancer in sister, premenopausal breast cancer in mother, and breast cancer in sister. Benign right mammotome panel of the right breast, May 24, 2009. Took estrogen for 3 years beginning at age 31. Physical Findings: A clinical breast exam by your physician is recommended on an annual basis and results should be correlated with mammographic findings. MG 3D Screening Mammo W/Cad Bilateral CC and MLO view(s) were taken. Prior study comparison: October 12, 2019, bilateral MG 3d screening mammo w/cad. July 19, 2018, bilateral MG 3d screening mammo w/cad. There are scattered fibroglandular densities. No significant changes when compared with prior studies. ASSESSMENT: Benign, BI-RAD 2 RECOMMENDATION: Routine screening mammogram of both breasts in 1 year.
== END | disposition home or self-care (01) ==
LOC: RADMAMWWP 07:58
PROVIDERS: ATTEND Family Medicine
DX: Z12.31 Encounter for screening mammogram for malignant neoplasm of breast (principal); M85.89 Other specified disorders of bone density and structure, multiple sites; Z78.0 Asymptomatic menopausal state; Z80.3 Family history of malignant neoplasm of breast
CPT/HCPCS: 77063; 77067; 77080

== ENCOUNTER → 2021-04-17 | Outpatient (CLI) | payer MEDICARE, OTHER ==
--- NOTE | 2021-04-17 18:28 | CT ---
EXAMINATION TYPE: CT abdomen wo con DATE OF EXAM: 04/17/2021 COMPARISON: 11/03/2019 HISTORY: RT flank pain CT DLP: 445.40 mGycm Examination of the solid and hollow viscera is limited given the lack of contrast. Unenhanced CT of t he abdomen was performed. Lack of contrast limits evaluation of the solid abdominal viscera. FINDINGS: LUNG BASES: No evidence for nodule. No evidence for infiltrate. LIVER/GB: The gallbladder is unremarkable. No space-occupying hepatic lesion. PANCREAS: No pancreatic mass identified. No inflammatory process seen. SPLEEN: No evidence for splenomegaly. No intrasplenic lesions seen. ADRENALS: No adrenal nodules identified. No evidence for thickening. KIDNEYS: No evidence for renal mass. No nephrolithiasis. No hydronephrosis. BOWEL: The visualized bowel loops appear to be of normal caliber. Previous gastric surgery noted. Lymph nodes: No evidence for adenopathy greater than 1 cm. Abdominal aorta: Atheromatous changes seen. No evidence for aneurysm. Other: No significant abnormality. IMPRESSION:
== END | disposition home or self-care (01) ==
LOC: RADCTMAIN 17:00
PROVIDERS: ATTEND Family Medicine
DX: R10.9 Unspecified abdominal pain (principal)
CPT/HCPCS: 74150

== ENCOUNTER → 2022-01-29 | Outpatient (CLI) | payer MEDICARE, OTHER ==
--- NOTE | 2022-01-29 13:50 | CT ---
EXAMINATION TYPE: CT lumbar spine wo con DATE OF EXAM: 01/29/2022 12:01 PM COMPARISON: CT dated 04/17/2021 HISTORY: low back pain and leg numbness CT DLP: 1430.80 mGycm Automated exposure control for dose reduction was used. Technique: Unenhanced CT of the lumbar spine was performed. Bone and soft tissue window settings are submitted as well as coronal and sagittal reconstructions. Findings: Preserved lumbar lordosis. Minimal retrolisthesis of L5 over S1 with questionable subtle anterolisthe sis of L4 over L5. No definite vertebral body collapse or acute displaced fracture. Degenerative changes of the lumbar spine with multilevel opposing endplate osteophytosis. Degenerated L5-S1 disc. Multilevel facet osteoarthropathy most evident at L4-5 level. L1-L2: No significant lumbar disc disease, central spinal canal stenosis or neuroforaminal stenosis. L2-L3: No significant lumbar disc disease, central spinal canal stenosis or neuroforaminal stenosis. L3-L4: No significant lumbar disc disease, central spinal canal stenosis or neuroforaminal stenosis. L4-L5: Mild diffuse posterior disc bulge more inclined to the left side associated with severe bilate ral facet osteoarthropathy, ligamentum flavum hypertrophy and slightly prominent posterior epidural f at, causing moderate central spinal canal stenosis without significant neural foraminal stenosis. L5-S1: Degenerated disc with diffuse posterior disc bulge, bilateral facet osteoarthropathy and poste rior osteophytosis, causing no significant central spinal canal stenosis, moderate left and severe ri ght neuroforaminal stenosis compressing the corresponding L5 nerve root more on the right side. Bilateral pelvic bone sclerotic foci, slightly larger compared to October 2019 CT scan. For example, a right posterior iliac sclerotic focus measures 12 mm compared to 9 mm previously. A left posterior iliac sclerotic focus measures 13 mm compared to 11 mm previously. Further bone scan assessment can b e considered. Previous gastric surgery. Subtle calcification is seen at the lower pole of the right kidney. Suspect ed left renal cortical cyst without gross suspicious feature, for ultrasound confirmation. Left parap elvic renal cysts. Arterial atherosclerotic calcifications. Subcentimeter left para-aortic lymph node s. No paraspinal lesion. Fatty infiltration of the lower back muscles. IMPRESSION: Degenerative changes of the lumbar spine with L4-5 and L5-S1 DDD as detailed above, please correlate clinically. Further MRI assessment can be considered if clinically required. Enlarging sclerotic foci within the pelvic bones as described above, for further bone scan assessment . Other incidental findings as described above.
== END | disposition home or self-care (01) ==
LOC: RADCTMAIN 11:35
PROVIDERS: ATTEND Family Medicine
DX: M51.37 Other intervertebral disc degeneration, lumbosacral region (principal)
CPT/HCPCS: 72131

== ENCOUNTER → 2022-02-17 | Outpatient (CLI) | payer MEDICARE, OTHER ==
--- NOTE | 2022-02-17 12:14 | NM ---
EXAMINATION TYPE: NM bone 3 phase DATE OF EXAM: 02/17/2022 COMPARISON: Prior nuclear medicine study January 06, 2018 HISTORY: Left knee pain for 2 months. History of bilateral knee replacement 1988 with right knee revi mayela 2019 Triple phase bone scintigraphy was attempted following the injection of 21.7 mCi Tc 99m MDP. Dynamic arterial and soft tissue phase imaging is performed. Delayed imaging is ordered. FINDINGS: The dynamic arterial phase imaging shows no suspicious increased radiotracer uptake to either knee si milar to prior. Lucency from bilateral prosthesis is redemonstrated. Soft tissue phase imaging shows mild uptake along the distal femoral component of prosthesis bilaterally similar to prior greatest me dial aspect left knee. Patient cannot return for delayed phase imaging as ordered. IMPRESSION: As above. Incomplete study. First 2 phases obtained show no significant interval change f rom 2018 exam.
== END | disposition home or self-care (01) ==
LOC: RADNMMAIN 07:18
PROVIDERS: ATTEND Orthopaedic Surgery
DX: M79.662 Pain in left lower leg (principal)
CPT/HCPCS: 78315; A9503

== ENCOUNTER → 2022-03-10 | Outpatient (CLI) | payer MEDICARE, OTHER ==
--- NOTE | 2022-03-11 17:33 | MM ---
Reason for Exam: Screening (asymptomatic). Last mammogram was performed 1 year(s) and 1 month(s) ago. Patient History: Menarche at age 11. First Full-Term at age 18. Left ovary removed at age 31. Right ovary removed at age 31. Hysterectomy at age 31. Postmenopausal. Estrogen for 3 years from age 31 until age 34. 05/24/2009, Benign Core Biopsy on the right side. Sister had breast cancer. Mother had breast cancer. Risk Values: Danielle 5 year model risk: 9.4%. NCI Lifetime model risk: 28.6%. Film Views: Bilateral CC views were taken. Bilateral MLO views were taken. Prior Study Comparison: 07/19/2018 Bilateral Screening Mammogram, [facility]. 10/12/2019 Bilateral Screening Mammogram, [facility]. 01/27/2021 Bilateral Screening Mammogram, [facility]. Tissue Density: There are scattered fibroglandular densities. Findings: Analyzed By CAD. There is no suspicious group of microcalcifications or new suspicious mass in either breast. Overall Assessment: Benign, BI-RAD 2 Management: Screening Mammogram of both breasts in 1 year. A clinical breast exam by your physician is recommended on an annual basis and results should be correlated with mammographic findings. Electronically signed and approved by: Tejinder Raymond D.O. Radiologis
== END | disposition home or self-care (01) ==
LOC: RADMAMWWP 07:49
PROVIDERS: ATTEND Family Medicine
DX: Z08 Encounter for follow-up examination after completed treatment for malignant neoplasm (principal); Z80.3 Family history of malignant neoplasm of breast
CPT/HCPCS: 77063; 77067

== ENCOUNTER → 2022-06-29 | Outpatient (CLI) | payer MEDICARE | END | disposition home or self-care (01) | LOC: LABPAT 07:24 | PROVIDERS: ATTEND Orthopaedic Surgery | DX: Z01.812 Encounter for preprocedural laboratory examination (principal); Z22.322 Carrier or suspected carrier of Methicillin resistant Staphylococcus aureus; T84.84XA Pain due to internal orthopedic prosthetic devices, implants and grafts, initial encounter; Z96.652 Presence of left artificial knee joint | CPT/HCPCS: 87070; 93005 ==

== ENCOUNTER 2022-07-14 07:45 | Inpatient (IN) | payer MEDICARE ==
[2022-07-10 10:17] VITALS: BMI 29.6
[~2022-07-14 07:45] MED LIST changes: +ACETAMINOPHEN TAB 500 MG TAB PO PRN; +DEXAMETHASONE SOD PHOSPHATE 4 MG/ML 1 ML VIAL IV ONE; +HYDROmorphone 0.5 MG/0.5 ML SYRINGE IVP PRN; -LACTATED RINGERS 1,000 ML IV SCH; +MELOXICAM 7.5 MG TAB PO PRN; +ONDANSETRON 4 MG/2 ML VIAL IVP ONE; +TRANEXAMIC ACID IN NACL,ISO-OS 1,000 MG in SALINE 1 100ML.BAG IVPB PRN
[2022-07-14 08:42] LABS: Glucose,Whole Blood 116 mg/dL (70-110)
[2022-07-14] MEDS: LACTATED RINGERS 1,000 ML IV SCH (08:44)
[2022-07-14] MEDS ORDERED: MIDAZOLAM 2 MG/2 ML VIAL IVP ONE (09:22)
[2022-07-14] MEDS ORDERED: fentaNYL (PF) 50 MCG/ML 2 ML AMP IVP ONE (09:24)
[2022-07-14] MEDS ORDERED: PROPOFOL 10 MG/ML 20 ML VIAL IV ONE (09:33)
[2022-07-14] MEDS ORDERED: MIDAZOLAM 2 MG/2 ML VIAL ONE (09:33)
[2022-07-14] MEDS ORDERED: SODIUM CHLORIDE 0.9% (PF) 10 ML VIAL ONE (09:33)
[2022-07-14] MEDS ORDERED: ROPIVACAINE 5 MG/ML 30 ML VIAL ONE (09:33)
[2022-07-14] MEDS ORDERED: fentaNYL (PF) 50 MCG/ML 2 ML AMP ONE (09:33)
[2022-07-14] MEDS ORDERED: TRANEXAMIC ACID IN NACL,ISO-OS 1,000 MG/100 ML BAG ONE (09:33)
[2022-07-14] MEDS ORDERED: ceFAZolin 1,000 MG in SODIUM CHLORIDE 0.9% 1,000 ML IRRIGATION ONE (10:02)
--- NOTE | 2022-07-14 10:04 | P.ANPRN ---
Procedure Note - Anesthesia - Nerve Block Performed Left Adductor Canal Infusion Time Out Performed: Yes (922) Date of Procedure: 07/14/22 Procedure Start Time: Procedure Stop Time: Location of Patient: PreOp Indication: Acute Post-Operative Pain, Requested by Surgeon Specifically requested for management of pain by : Cleve Bond Sedation Type: Sedate with meaningful contact maintained Preparation: Sterile Prep Position: Supine Catheter Depth at Skin (cm): 8 Catheter: Indwelling Needle Types: Pajunk Needle Gauge: 18, 21 Ultrasound used to visualize needle placement: Yes Ultrasound used to observe medication spread: Yes Injectate: 0.5% Ropivacaine (see comment for volume) (15cc+ 10cc nacl pf) Blood Aspirated: No Pain Paresthesia on Injection Noted: No Resistance on Injection: Normal Image Stored and Saved: Yes Events: Uneventful and Well Tolerated
--- NOTE | 2022-07-14 10:05 | P.ANPRN ---
Procedure Note - Anesthesia - Nerve Block Performed Left iPack Single Time Out Performed: Yes (922) Date of Procedure: 07/14/22 Procedure Start Time: Procedure Stop Time: Location of Patient: PreOp Indication: Acute Post-Operative Pain, Requested by Surgeon Specifically requested for management of pain by DrVianey: Cleve Bond Sedation Type: Sedate with meaningful contact maintained Preparation: Sterile Prep Position: Supine Catheter: None Needle Types: Pajunk Needle Gauge: 21 Ultrasound used to visualize needle placement: Yes Ultrasound used to observe medication spread: Yes Injectate: 0.5% Ropivacaine (see comment for volume) (15cc +10cc nacl pf) Blood Aspirated: No Pain Paresthesia on Injection Noted: No Resistance on Injection: Normal Image Stored and Saved: Yes Events: Uneventful and Well Tolerated
[2022-07-14] MEDS ORDERED: HYDROmorphone 0.5 MG/0.5 ML SYRINGE IVP PRN (11:51)
[2022-07-14] MEDS ORDERED: NALOXONE 0.4 MG/ML 1 ML VIAL IV PRN (11:51)
[2022-07-14] MEDS ORDERED: HYDROcodone/APAP 5-325MG 1 EACH TAB PO PRN (11:51)
[2022-07-14] MEDS ORDERED: LACTATED RINGERS 1,000 ML IV ONE (12:05)
--- NOTE | 2022-07-14 12:24 | P.OP ---
Date of Procedure: 07/14/22 Preoperative Diagnosis: Painful left total knee arthroplasty/aseptic loosening Postoperative Diagnosis: Same Procedure(s) Performed: Revision left total knee arthroplasty with hardware removal1 staple Implants: Depuy TC3 size 2.5 femoral component with 4 mm distal lateral augment, 4 mm posterior medial and lateral augments. Size 2.5 tibial component with 29 mm metaphyseal sleeve and 30 mm x 13 mm cemented stem extension. 17.5 mm articular surface. Anesthesia: regional, spinal Surgeon: Cleve Bond Guide Alpine #1: Enrique Pruett Estimated Blood Loss (ml): 100 Pathology: other (Bone fragments) Condition: stable Disposition: PACU Indications for Procedure: The patient's a 67-year-old female who presents with progressive left knee pain after previously undergoing total knee arthroplasty many years ago. Clinically and by bone scan she was noted have loosening of her components. Laboratory studies showed no evidence of infection. A discussion of the risks and benefits of revision total posterior were discussed with the patient. Specific risks to include infection, neurovascular injury, development of blood clots, neurovascular injury, component loosening, fracture, possible need for subsequent procedures was discussed. Informed consent was obtained. Operative Findings: As below Description of Procedure: The patient was brought to the operating room, and after induction of spinal anesthesia the left lower extremity was prepped and draped in normal fashion. The tourniquet was inflated to 270 mmHg. The previous curvilinear medial parapatellar incision was utilized. Skin was incised sharply. Subcu tissues were divided sharply. A medial parapatellar arthrotomy was performed. The patella was gently everted. The knee was flexed. The medial and lateral gutters were cleared of soft tissue. The polyethylene articular surface was then removed. Attention was then paid towards removal of the tibial component. A small sagittal saw along with thin osteotomes were utilized for removal of the tibial component. The 3 screws in the tibial baseplate were removed. The tibial component was then removed without significant bone loss attached to the tibial plate. There was significant metaphyseal bone loss. The femoral component was removed in a similar fashion utilizing the small sagittal saw and thin osteotomes. There was some loss of bone anteriorly. The tibial canal was reamed up to 14 mm. One of the previous susan was blocking the metaphyseal reamer therefore it was then removed. The metaphyseal reamer was inserted the appropriate depth. The proximal tibia was broached up to a size 29. There is good rotational stability. A clean up cut was made over this. The tibia sized most appropriately at 2.5. The broach was then removed. Attention was then paid towards the distal femur. The distal cutting block was then placed with the aid of an truong wing. An additional 2 mm distal Cut was made. The prior femoral component matched most probably with a 2.5 femoral component. Knee joint was utilized along the anterior cortex for positioning of the cutting block. This was pinned in place. The anterior, posterior, and chamfer cuts were then made. I planned on 4 mm augments posterior medial and posterior lateral. The intercondylar notch cutting block was placed and pinned in place. A reciprocating saw was used to remove the bone block. The trial femoral component was assembled and placed. There is good anterior to posterior and medial to lateral fit. The trial tibial and femoral components were then placed along with a 17.5 mm articular surface. I was able to obtain full flexion and extension with good stability with varus and valgus stress. The patella appeared to track well and showed minimal polyethylene wear. The trial components were then removed. Pulsatile lavage was utilized. The metaphyseal sleeve was then placed in the appropriate rotation and impacted on the tibial component. The tibial component was cemented in place and was fully seated. Excess cement was removed. The femoral component was cemented place and was fully seated. Excess cement was removed. The trial 17.5 mm Tickler surface was placed and the knee was put in full extension. After the cement had sufficiently hardened, the trial articular surface was removed and the final 17.5 mm articular surface was placed. The knee was again taken through range of motion was felt to be stable in flexion and extension with varus and valgus stress. Pulsatile lavage was utilized. The tourniquet was deflated with less than 70 minutes total tourniquet time. Final hemostasis was obtained with electrocautery. A second dose of I V TXA was given. A medial parapatellar arthrotomy was closed with #2 Ethibond suture. The subcutaneous tissues reapproximated interrupted 2-0 Vicryl sutures. The skin was reapproximated with 3-0 subcuticular strata fix suture. Steri-Strips were applied. A sterile dressing was applied. The patient was then awoken from sedation and transferred to recovery room in good condition. Blood loss was estimated 100 mL. No complications were incurred. Sponge and needle counts were correct in the case. Enrique PHILIPPE assisted in the major components the case to include positioning, exposure, extraction, implantation, and closure.
--- NOTE | 2022-07-14 13:01 | XR ---
EXAMINATION TYPE: XR knee limited LT DATE OF EXAM: 07/14/2022 CLINICAL HISTORY: Postoperative evaluation Two views of the left knee are submitted. Identified are changes of total knee arthroplasty with fem oral and tibial components appearing well seated. Postsurgical soft tissue changes are noted. Align ment is anatomic.
[2022-07-14] MEDS ORDERED: ROPIVACAINE 0.2%-NS ON-Q PUMP 2 MG/ML EACH MISCELLANE ONE (13:13)
[2022-07-14] MEDS: HYDROmorphone 0.5 MG/0.5 ML SYRINGE IVP PRN (15:23)
[2022-07-14 16:36] LABS: Glucose,Whole Blood 188 mg/dL (70-110)
[2022-07-14] MEDS: HYDROcodone/APAP 10-325MG 1 EACH TAB PO PRN (18:55)
[2022-07-14 20:26] LABS: Glucose,Whole Blood 199 mg/dL (70-110)
[2022-07-14] MEDS: SENNOSIDES-DOCUSATE SODIUM 1 EACH TAB PO SCH (20:32)
[2022-07-15] MEDS: HYDROcodone/APAP 10-325MG 1 EACH TAB PO PRN ×5 (00:20→23:19)
[2022-07-15] MEDS: HYDROmorphone 0.5 MG/0.5 ML SYRINGE IVP PRN ×3 (01:18→08:55)
[2022-07-15] MEDS: LACTATED RINGERS 1,000 ML IV SCH ×2 (05:52→11:42)
[2022-07-15 07:07] LABS: Glucose,Whole Blood 116 mg/dL (70-110)
[2022-07-15] MEDS: NON FORMULARY DRUG (Brexpiprazole [Rexulti] 2 MG Tablet) PO SCH (08:11)
[2022-07-15] MEDS: buPROPion SR 150 MG TABLET.ER PO SCH (08:12)
[2022-07-15] MEDS: ARIPiprazole 10 MG TAB PO SCH (08:12)
[2022-07-15] MEDS: DULoxetine HCL 60 MG CAPSULE.DR PO SCH ×2 (08:12→20:00)
[2022-07-15] MEDS: PANTOPRAZOLE 40 MG TABLET PO SCH (08:12)
[2022-07-15] MEDS: lisinopriL 10 MG TAB PO SCH (08:12)
[2022-07-15] MEDS: FERROUS SULFATE 325 MG TAB PO SCH (08:12)
[2022-07-15] MEDS: RIVAROXABAN 10 MG TAB PO SCH (08:12)
--- NOTE | 2022-07-15 08:22 | CONS ---
CONSULTATION HISTORY OF PRESENT ILLNESS: A 67-year-old white female, status post total knee replacement. Home medicines have been restarted. Sugars have been 100s. PHYSICAL EXAMINATION: VITAL SIGNS: Temperature 97.9, blood pressure 130s over 70s, O2 96% on room air, respiratory rate 16 to 18. CARDIOVASCULAR: S1, S2. LUNGS: Clear. GI: Soft. HEMATOLOGY: Negative Homans. EXTREMITIES: Right knee is in a wrap. ASSESSMENT: She is status post total knee replacement, diabetes mellitus, hypertension, chronic obstructive pulmonary disease. Prognosis guarded. Home medications have been reordered. Please see further orders. Call for troubles. Chichi NGUYEN / IJN: [phone] /
--- NOTE | 2022-07-15 09:10 | P.PN ---
Progress Note - Text Progress Note Date: 07/15/22 Postoperative day # 1 status post total knee arthroplasty, and adductor canal catheter placed for postoperative analgesia, currently at ropivacaine 0.2% 8 mL per hour and continuous infusion, patient using oral pain medication for breakthrough pain. Assessment and plan= Acute postoperative pain, adductor canal catheter for pain control, pain controlled we'll continue the same management.
--- NOTE | 2022-07-15 09:25 | P.PN ---
Subjective Progress Note Date: 07/15/22 Principal diagnosis: Painful left total knee arthroplasty/aseptic loosening Patient was seen at bedside this morning resting comfortably lying semirecumbent position. Patient says she has been up and walking around the room since surgery yesterday. Patient says she does use a walker to ambulate. Patient rates her pain as 7/10 currently. Patient describes that most the pain is located at the front of the knee. Patient denies any radiation of pain. Patient says she has urinated since surgery. Patient says she has not had bowel movement yet, however, patient says she has passed gas. Patient had not yet worked with physical therapy this morning. Patient denies chest pain, fever, chest breath, nausea, vomiting Change in vision, loss of bowel/bladder control. Objective - Vital Signs Vital signs: Vital Signs Temp 98.3 F 07/15/22 08:00 Pulse 69 07/15/22 08:00 Resp 16 07/15/22 08:00 BP 135/66 07/15/22 08:00 Pulse Ox 95 07/15/22 08:00 FiO2 Intake & Output 07/14/22 07/15/22 07/15/22 18:59 06:59 18:59 Intake Total 1950 1020 Output Total 100 Balance 1850 1020 Weight 75.3 kg Intake: IV 1950 Intake, IV Titration 300 Amount Lactated Ringers 1,000 ml 300 @ 20 mls/hr IV .Q24H W[facility]ACE Rx#:[id number] Oral 720 Output: Estimated Blood Loss 100 Other: # Voids 1 5 1 - Exam Left knee: Incision is clean, dry, and intact. The exofin fusion tape is in good condition. There is minimal soft tissue swelling and ecchymosis surrounding the medial and lateral aspects of the incision. Calf is soft, no tenderness with palpation. Plantar flexion, dorsiflexion, EHL, FHL are intact. Sensory exam to light touch throughout the extremity is intact, dorsal pedis pulses 2+. - Labs Labs: Abnormal Lab Results - Last 24 Hours (Table) 07/14/22 07/14/22 07/15/22 Range/Units 16:34 20:23 07:06 POC Glucose (mg/dL) 188 H 199 H 116 H (70-110) mg/dL Assessment and Plan Assessment: 1. Painful left total knee arthroplasty/aseptic loosening - Postoperative day 1 status post revision left total knee arthroplasty with hardware removal1 staple Plan: 1. Painful left total knee arthroplasty/aseptic loosening - revision left total knee arthroplasty with hardware removalone staple performed yesterday, 07/14/2022. Patient stable at bedside this morning. Patient has not yet worked with physical therapy. Plan to keep patient 1 more night to get pain under better control. Plan for discharge home tomorrow with health services. 2. Appreciate medical management 3. Pain management - [place]; Dilaudid only if necessary 4. DVT prophylaxis - Xarelto 5. GI prophylaxis - senna; Protonix 6. PT/OT - weightbearing as tolerated with walker 7. Encourage incentive spirometer use 8. Discharge planning - plan for discharge home with health services tomorrow, , 07/16/2022 Time with Patient: Less than 30
[2022-07-15 11:06] LABS: Glucose,Whole Blood 114 mg/dL (70-110)
[2022-07-15 11:10] LABS: Basophils # (A) 0.02 X 10*3/uL (0.00-0.10); Basophils % (A) 0.2 %; Eosinophils # (A) 0.04 X 10*3/uL (0.04-0.35); Eosinophils % (A) 0.4 %; HGB 9.9 g/dL (12.0-15.0); Immature Grans, Automated 0.5 %; Lymphocytes # (A) 2.41 X 10*3/uL (0.90-5.00); Lymphocytes % (A) 23.1 %; MCH 28.7 pg (27.0-32.0); MCHC 31.9 g/dL (32.0-37.0); MCV 89.9 fL (80.0-97.0); Mean Platelet Volume 9.9 fL (9.5-12.2); Monocytes # (A) 1.14 X 10*3/uL (0.20-1.00); Monocytes % (A) 10.9 %; NRBC Per 100 WBC 0 /100 WBCS (0.0-0.0); Neutrophils # (A) 6.76 X 10*3/uL (1.80-7.70); Neutrophils % (A) 64.9 %; Platelet Count 236 X 10*3/uL (140-440); RBC 3.45 X 10*6/uL (4.10-5.20); RDW 13.6 % (11.5-14.5); WBC 10.42 X 10*3/uL (4.50-10.00)
[2022-07-15 16:04] LABS: Glucose,Whole Blood 139 mg/dL (70-110)
[2022-07-15] MEDS: SENNOSIDES-DOCUSATE SODIUM 1 EACH TAB PO SCH (20:00)
[2022-07-15 20:22] LABS: Glucose,Whole Blood 168 mg/dL (70-110)
[2022-07-15] MEDS ORDERED: traZODone HCL 100 MG TAB PO SCH (21:00)
[2022-07-15] MEDS ORDERED: ATORVASTATIN 80 MG TAB PO SCH (21:00)
[2022-07-15] MEDS ORDERED: MONTELUKAST 10 MG TAB PO SCH (21:00)
[2022-07-16] MEDS: HYDROcodone/APAP 10-325MG 1 EACH TAB PO PRN (04:26)
[2022-07-16 07:15] LABS: Glucose,Whole Blood 155 mg/dL (70-110)
[2022-07-16 07:59] VITALS: BP 165/78; PULSE 74; RESP 18; TEMP 97.6
--- NOTE | 2022-07-16 08:50 | P.PN ---
Subjective Progress Note Date: 07/16/22 Principal diagnosis: Painful left total knee arthroplasty/aseptic loosening Patient was seen at bedside this morning resting comfortably lying semirecumbent position. Patient says she has been up and walking around the room since surgery. Patient says she does use a walker to ambulate. Patient says she did walk around the room yesterday with physical therapy using walker. Patient says she is looking forward to going home today. Patient describes that most the pain is located at the front of the knee. Patient denies any radiation of pain. Patient says she has urinated since surgery. Patient says she has not had bowel movement yet, however, patient says she has passed gas. Patient had not yet worked with physical therapy this morning. Patient denies chest pain, fever, chest breath, nausea, vomiting Change in vision, loss of bowel/bladder control. Objective - Vital Signs Vital signs: Vital Signs Temp 97.6 F 07/16/22 07:58 Pulse 74 07/16/22 07:58 Resp 18 07/16/22 07:58 BP 165/78 07/16/22 07:58 Pulse Ox 90 L 07/16/22 07:58 FiO2 Intake & Output 07/15/22 07/16/22 07/16/22 18:59 06:59 18:59 Intake Total 1080 120 Balance 1080 120 Intake: Oral 1080 120 Other: # Voids 1 2 - Exam Left knee: Incision is clean, dry, and intact. The exofin fusion tape is in good condition. There is minimal soft tissue swelling and ecchymosis surrounding the medial and lateral aspects of the incision. Calf is soft, no tenderness with palpation. Plantar flexion, dorsiflexion, EHL, FHL are intact. Sensory exam to light touch throughout the extremity is intact, dorsal pedis pulses 2+. - Labs CBC & Chem 7: 07/15/22 05:58 Labs: Abnormal Lab Results - Last 24 Hours (Table) 07/15/22 07/15/22 07/15/22 Range/Units 05:58 11:05 16:03 WBC 10.42 H (4.50-10.00) X 10*3/uL RBC 3.45 L (4.10-5.20) X 10*6/uL Hgb 9.9 L (12.0-15.0) g/dL Hct 31.0 L (37.2-46.3) % MCHC 31.9 L (32.0-37.0) g/dL Immature Gran # 0.05 H (0.00-0.04) X 10*3/uL Monocytes # 1.14 H (0.20-1.00) X 10*3/uL POC Glucose (mg/dL) 114 H 139 H (70-110) mg/dL 07/15/22 07/16/22 Range/Units 20:17 07:13 WBC (4.50-10.00) X 10*3/uL RBC (4.10-5.20) X 10*6/uL Hgb (12.0-15.0) g/dL Hct (37.2-46.3) % MCHC (32.0-37.0) g/dL Immature Gran # (0.00-0.04) X 10*3/uL Monocytes # (0.20-1.00) X 10*3/uL POC Glucose (mg/dL) 168 H 155 H (70-110) mg/dL Assessment and Plan Assessment: 1. Painful left total knee arthroplasty/aseptic loosening - Postoperative day 2 status post revision left total knee arthroplasty with hardware removal1 staple Plan: 1. Painful left total knee arthroplasty/aseptic loosening - revision left total knee arthroplasty with hardware removalone staple performed 07/14/2022. Patient stable at bedside this morning. Patient did do well with physical therapy yesterday. Patient does have a walker at home. Plan for discharge home today with health services. 2. Appreciate medical management 3. Pain management - [place]; Dilaudid only if necessary 4. DVT prophylaxis - Xarelto; going home with Eliquis 5. GI prophylaxis - senna; Protonix; going home with Colace 6. PT/OT - weightbearing as tolerated with walker 7. Encourage incentive spirometer use 8. Discharge planning - discharge home with health services today, , 07/16/2022 Time with Patient: Less than 30
--- NOTE | 2022-07-16 08:57 | P.DS ---
Providers Date of admission: 07/14/22 07:46 Expected date of discharge: 07/16/22 Attending physician: Cleve Bond Consults: 07/14/22 11:53 Consult Physician Routine Consulting Provider: Catarino Hannon Reason/Comments: Medical Management s/p revision left total knee arthroplasty Do you want consulting provider notified?: Yes Primary care physician: Catarino Hannon [facility] Course: Date of admission: 07/14/2022 Date of discharge: 07/16/2022 Admission diagnosis: Painful left total knee arthroplasty/aseptic loosening Discharge diagnosis: Same Attending physician: Dr. Bond Surgical procedures: revision left total knee arthroplasty with hardware removal1 staple Brief history: Patient is a 67-year-old female with a history of painful left total knee arthroplasty/aseptic loosening. At this point patient has failed conservative treatment measures and has opted to proceed with a elective revision left total knee arthroplasty with hardware removal1 staple. Hospital course: Details of patient's surgery can be found in operative report. Patient tolerated the procedure well and was subsequently transported to orthopedic floor. Patient's orthopeidc and medical care was provided daily. Patient had daily laboratory tests performed for evaluation of overall blood counts. Patient had daily physical therapy to include strengthening range of motion as well as education with walker ambulation. Patient was treated with Xarelto for their postoperative DVT prophylaxis during their inpatient stay. Patient was noted to have a relatively uneventful postoperative course. Patient reported satisfactory pain control with oral pain medications by postoperative day 2. Patient showed satisfactory progress with physical therapy. Patient moved steadily through the program and had no difficulty meeting the goals by postoperative day 2. Given patient's otherwise satisfactory course and having met physical therapy goals, plan is to discharge patient home with health services on postoperative day 2. Discharge condition/disposition: Patient will be discharged home with health services in stable condition. Discharge medications: Instructions are given on resumption of patient's normal daily medications per primary care recommendation, in addition patient will be prescribed [place] 10 mg/325 mg; Colace; Eliquis 2.5 mg BID x 2 weeks. Discharge instructions: 1. Wound care and infection precautions, keep incision dry and covered while showering, no lotions, creams, moisturizers. No soaking, tubs, pools, hottubs. Do not scrub over the incision. 2. Weight-bear as tolerated with walker / cane until follow-up. 3. Ice and elevate when necessary. Do not exceed 20 minutes per hour with ice pack. 4. Utilize compression sleeve until seen at first follow up appointment. 5. Visiting nursing care. 6. Home physical therapy including home CPM. 7. Pain meds and anticoagulants per prescription. 8. Pain medication has potential to cause constipation. Increase oral fluid and fiber intake. Contact primary care provider if you have not had a bowel movement within 48 hours after discharge 9. No anti-inflammatory medication until discussed at first post operative visit, this including Motrin, Aleve, Mobic, Diclofenac 10. Follow up in office at 2 weeks postop with Vito Kilgore PA-C / Enrique Pruett PA-C 11. Follow up with your primary care doctor 7-10 days after discharge. 12. Contact [facility] with any questions, . Keep incision clean, dry, intact. While showering, cover fusion tape was Saran wrap. Keep fusion tape on until follow-up appointment in office in 2 weeks. Medications: [place] 10 mg/325 mg; Colace; Eliquis 2.5 mg BID x 2 weeks. Assessment: Painful left total knee arthroplasty/aseptic loosening Procedures: revision left total knee arthroplasty with hardware removal1 staple Patient Condition at Discharge: Good Plan - Discharge Summary Discharge Rx Participant: No New Discharge Prescriptions: New Docusate [Colace] 100 mg PO DAILY #30 capsule Apixaban [Eliquis] 2.5 mg PO BID #60 tab HYDROcodone/APAP 10-325MG [[place] 10-325] 1 tab PO Q6HR PRN #27 tab PRN Reason: Pain No Action metFORMIN HCL [Glucophage] 1,000 mg PO BID DULoxetine HCL [Cymbalta] 60 mg PO BID Montelukast [Singulair] 10 mg PO HS HYDROcodone/APAP 10-325MG [[place] 10-325] 1 tab PO TID PRN PRN Reason: Pain ARIPiprazole [Abilify] 10 mg PO QAM buPROPion SR [Wellbutrin Sr] 300 mg PO QAM Dextroamphetamine/Amphetamine [Adderall] 20 mg PO BID PRN PRN Reason: WEIGHT LOSS Brexpiprazole [Rexulti] 2 mg PO QAM traZODone HCL 200 mg PO HS Dulaglutide [Trulicity] 3 mg SQ FR Rosuvastatin Calcium 40 mg PO HS Omeprazole 20 mg PO QAM Ferrous Sulfate [Feosol] 325 mg PO DAILY Benazepril [Lotensin] 10 mg PO QAM Discharge Medication List DULoxetine HCL [Cymbalta] 60 mg PO BID 03/26/14 [History] metFORMIN HCL [Glucophage] 1,000 mg PO BID 03/26/14 [History] ARIPiprazole [Abilify] 10 mg PO QAM 02/01/18 [History] HYDROcodone/APAP 10-325MG [[place] 10-325] 1 tab PO TID PRN 02/01/18 [History] Montelukast [Singulair] 10 mg PO HS 02/01/18 [History] Dextroamphetamine/Amphetamine [Adderall] 20 mg PO BID PRN 03/30/19 [History] buPROPion SR [Wellbutrin Sr] 300 mg PO QAM 03/30/19 [History] Benazepril [Lotensin] 10 mg PO QAM 07/10/22 [History] Brexpiprazole [Rexulti] 2 mg PO QAM 07/10/22 [History] Dulaglutide [Trulicity] 3 mg SQ FR 07/10/22 [History] Ferrous Sulfate [Feosol] 325 mg PO DAILY 07/10/22 [History] Omeprazole 20 mg PO QAM 07/10/22 [History] Rosuvastatin Calcium 40 mg PO HS 07/10/22 [History] traZODone HCL 200 mg PO HS 07/10/22 [History] Apixaban [Eliquis] 2.5 mg PO BID #60 tab 07/16/22 [Rx] Docusate [Colace] 100 mg PO DAILY #30 capsule 07/16/22 [Rx] HYDROcodone/APAP 10-325MG [[place] 10-325] 1 tab PO Q6HR PRN #27 tab 07/16/22 [Rx] Follow up Appointment(s)/Referral(s): Enrique Pruett PAC [PHYSICIAN IMAGERY ANALYST] - 2 Weeks [facility], [NON-STAFF] - As Needed Patient Instructions/Handouts: Knee Replacement (DC) Activity/Diet/Wound Care/Special Instructions: Discharge instructions: 1. Wound care and infection precautions, keep incision dry and covered while showering, no lotions, creams, moisturizers. No soaking, tubs, pools, hottubs. Do not scrub over the incision. 2. Weight-bear as tolerated with walker / cane until follow-up. 3. Ice and elevate when necessary. Do not exceed 20 minutes per hour with ice pack. 4. Utilize compression sleeve until seen at first follow up appointment. 5. Visiting nursing care. 6. Home physical therapy including home CPM. 7. Pain meds and anticoagulants per prescription. 8. Pain medication has potential to cause constipation. Increase oral fluid and fiber intake. Contact primary care provider if you have not had a bowel movement within 48 hours after discharge 9. No anti-inflammatory medication until discussed at first post operative visit, this including Motrin, Aleve, Mobic, Diclofenac 10. Follow up in office at 2 weeks postop with Vito Kilgore PA-C / Enrique Pruett PA-C 11. Follow up with your primary care doctor 7-10 days after discharge. 12. Contact [facility] with any questions, . Keep incision clean, dry, intact. While showering, cover fusion tape was Saran wrap. Keep fusion tape on until follow-up appointment in office in 2 weeks. Medications: [place] 10 mg/325 mg; Colace; Eliquis 2.5 mg BID x 2 weeks. Discharge Disposition: HOME WITH HOME HEALTH SERVICES
[2022-07-16] MEDS: FERROUS SULFATE 325 MG TAB PO SCH (09:07)
[2022-07-16] MEDS: lisinopriL 10 MG TAB PO SCH (09:07)
[2022-07-16] MEDS: DULoxetine HCL 60 MG CAPSULE.DR PO SCH (09:07)
[2022-07-16] MEDS: PANTOPRAZOLE 40 MG TABLET PO SCH (09:07)
[2022-07-16] MEDS: RIVAROXABAN 10 MG TAB PO SCH (09:07)
[2022-07-16] MEDS: NON FORMULARY DRUG (Brexpiprazole [Rexulti] 2 MG Tablet) PO SCH (09:08)
[2022-07-16] MEDS: ARIPiprazole 10 MG TAB PO SCH (09:09)
[2022-07-16] MEDS: buPROPion SR 150 MG TABLET.ER PO SCH (09:09)
[2022-07-16 10:32] LABS: Basophils # (A) 0.03 X 10*3/uL (0.00-0.10); Basophils % (A) 0.3 %; Eosinophils # (A) 0.07 X 10*3/uL (0.04-0.35); Eosinophils % (A) 0.7 %; HCT 31.6 % (37.2-46.3); Immature Grans, Automated 1.1 %; Lymphocytes # (A) 2.08 X 10*3/uL (0.90-5.00); Lymphocytes % (A) 20.8 %; MCHC 31.6 g/dL (32.0-37.0); MCV 91.6 fL (80.0-97.0); Mean Platelet Volume 10.9 fL (9.5-12.2); Monocytes # (A) 1.19 X 10*3/uL (0.20-1.00); Monocytes % (A) 11.9 %; NRBC Per 100 WBC 0 /100 WBCS (0.0-0.0); Neutrophils # (A) 6.51 X 10*3/uL (1.80-7.70); Neutrophils % (A) 65.2 %; Platelet Count 237 X 10*3/uL (140-440); RBC 3.45 X 10*6/uL (4.10-5.20); RDW 13.6 % (11.5-14.5); WBC 9.99 X 10*3/uL (4.50-10.00)
[2022-07-16 11:31] LABS: Glucose,Whole Blood 223 mg/dL (70-110)
--- NOTE | 2022-07-16 14:33 | PN ---
PROGRESS NOTE SUBJECTIVE: 67-year-old white female, status post total knee replacement. Postop pain control has been achieved. Medical management and medicines have been reordered. Did not pass gas or had a bowel movements. Now works with physical therapy, will continue on that prior to discharge. OBJECTIVE: VITAL SIGNS: Temperature 98.3, blood pressure 135/66, pulse 69, respiratory rate 16 to 18, O2 95. CARDIOVASCULAR: S1, S2. LUNGS: Clear. EXTREMITIES: Left knee, minimal soft tissue swelling, ecchymosis. ASSESSMENT: Painful left knee, total knee arthroscopy, aseptic . Postoperative day 1 status post revision left knee total and angioplasty. PT, OT. Possible discharge home when moving better. MMODL / IJN: [id number] /
--- NOTE | 2022-07-16 21:15 | PN ---
PROGRESS NOTE SUBJECTIVE: A 67-year-old white female, who is having severe pain in her knee physical therapy, go home with home health care. Breathing is good. No chest pain or shortness of breath. Home medications have been reordered. OBJECTIVE: CARDIOVASCULAR: S1, S2. LUNGS: Clear. GI: Soft. HEMATOLOGY: Negative Homans. PSYCH: Fair mood and affect. ASSESSMENT: Status post total knee replacement, chronic obstructive pulmonary disease, hypertension. Prognosis guarded. PT, OT. Discharge home soon. Continue home medicines. Pain control. MMODL / IJN: [id number] /
== END 2022-07-16 14:57 | disposition home health service (06) | DRG 468 ==
LOC: 2ORMAIN 07:46 → 4SSUR 13:01
PROVIDERS: ADMIT Orthopaedic Surgery; ATTEND Orthopaedic Surgery
PROC: 0SRU0J9 Replacement of Left Knee Joint, Femoral Surface with Synthetic Substitute, Cemented, Open Approach (ICD-10-PCS; 2022-07-14)
PROC: 0SPU0JZ Removal of Synthetic Substitute from Left Knee Joint, Femoral Surface, Open Approach (ICD-10-PCS; principal; 2022-07-14 09:45)
DX: T84.033A Mechanical loosening of internal left knee prosthetic joint, initial encounter (principal); E11.9 Type 2 diabetes mellitus without complications; I10 Essential (primary) hypertension; J44.9 Chronic obstructive pulmonary disease, unspecified; T84.84XA Pain due to internal orthopedic prosthetic devices, implants and grafts, initial encounter; Y79.2 Prosthetic and other implants, materials and accessory orthopedic devices associated with adverse incidents; G89.18 Other acute postprocedural pain
CPT/HCPCS: 64448; 64999; 76942; 85025

== ENCOUNTER → 2023-02-17 | Outpatient (CLI) | payer MEDICARE, OTHER ==
--- NOTE | 2023-02-17 10:17 | CT ---
EXAMINATION TYPE: CT soft tissue neck w con DATE OF EXAM: 02/17/2023 HISTORY: Difficulty swallowing COMPARISON: Prior neck CT January 03, 2018 CT DLP: 406.9 mGycm. Automated Exposure Control for Dose Reduction was Utilized. TECHNIQUE: CT scan of the neck is performed with IV Contrast, patient injected with 100 mL of Isovue 300, axial images are obtained, coronal and sagittal reformatted images are reviewed. FINDINGS: Airway: Persistent 4 to 5 mm calcified nodule or benign granuloma superior left lower lobe axial imag e 7 incidentally noted. Parotid/submandibular glands: No gross abnormality seen. Carotid/Vascular Structures: No significant focal stenosis at the carotid bulb level bilaterally. Osseous Structures: Redemonstration of anterior fusion plate C5-C6 level with anterior bridging osteo phytes just superficial to this. There is some ossific fusion of the C5 and C6 vertebra are redemonst rated. There are prominent anterior osteophytes at C3-C4 and C4-C5 levels, sagittal image 41 for refe rence. Persistent mild to moderate disc space narrowing C5-C6 and C6-C7 levels. Slight levoconvex sco liotic curvature or positioning redemonstrated. Other: No greater than 1 cm neck adenopathy is seen. A few prominent but subcentimeter lymph nodes th roughout the neck bilaterally are redemonstrated. IMPRESSION: No obvious new mass or adenopathy. Postsurgical change and spurring in the cervical spin e along the posterior hypopharyngeal airway is redemonstrated similar to prior. No significant new fi ndings are seen.
== END | disposition home or self-care (01) ==
LOC: RADCTMAIN 08:30
PROVIDERS: ATTEND Otolaryngology
DX: R22.1 Localized swelling, mass and lump, neck (principal); R13.10 Dysphagia, unspecified
CPT/HCPCS: 82565; 84520; 70491; 36415; Q9967

== ENCOUNTER → 2023-03-16 | Outpatient (CLI) | payer MEDICARE, OTHER ==
[2023-03-16 11:08] LABS: African American GFR (CKD) >90 (>60 ml/min/1.73 sqM); Blood Urea Nitrogen 17 mg/dL (7-17); Non-African American GFR(CKD) 79 (>60 ml/min/1.73 sqM)
--- NOTE | 2023-03-16 13:23 | CT ---
EXAMINATION TYPE: CT pelvis w con DATE OF EXAM: 03/16/2023 COMPARISON: 01/29/2022 HISTORY: pelvic bone lesion CT DLP: 780 mGycm Automated exposure control for dose reduction was used. CONTRAST: CT scan of the abdomen pelvis is performed with IV Contrast, patient injected with 100 mL of Isovue 3 00. FINDINGS- Visualized bowel gas pattern nonspecific. Bladder is decompressed and grossly within normal limits. C alcifications in the lower pelvis are likely vascular. Aorta normal caliber. Tiny hypodensities on th e lower pole the right kidney too small to characterize but statistically most likely related to simp le cyst. No definite pathologic adenopathy. The largest calcification in the right retroperitoneum and may be vascular. There is severe degenerative disc disease L5-S1. There is a dense sclerotic lesion involving the left iliac bone unchanged prior exam measuring 1.1 cm. Stable 9 mm right iliac bone lesion unchanged from prior exam. 2 mm iliac crest lesion on the right stable. No free fluid or pathologic adenopathy. Posthysterectomy changes suggested. IMPRESSION- 1. Stable bilateral iliac sclerotic lesions. In the absence of a history of malignancy this finding w ould most likely be on the basis of bone island. A bone scan could be obtained to assess the activity of the lesions.
== END | disposition home or self-care (01) ==
LOC: RADCTMAIN 10:11
PROVIDERS: ATTEND Family Medicine
DX: M99.85 Other biomechanical lesions of pelvic region (principal)
CPT/HCPCS: 82565; 84520; 72193; 36415; Q9967

== ENCOUNTER → 2023-03-18 | Outpatient (CLI) | payer MEDICARE, OTHER ==
--- NOTE | 2023-03-18 09:12 | FL ---
EXAMINATION TYPE: FL barium swallow DATE OF EXAM: 03/18/2023 8:46 AM COMPARISON: 02/17/2023 CT neck. CLINICAL INDICATION:Female, 67 years old with history of R13.10 DYSPHAGIA; TECHNIQUE: The procedure was explained and patient history elicited. All patient questions were ans wered prior to start of procedure. Multiple spot fluoroscopic images of the esophagus were obtained a fter the oral ingestion of effervescent crystals and liquid barium as the contrast agent. Fluoroscopic time: 35 seconds Fluoroscopic images: 0 Radiographs taken: 188 DAP: 2707.53 mGym2 FINDINGS: Antoine-en-Y surgical changes to the gastric lumen and small bowel. The esophagus demonstrates normal primary and secondary peristalsis. The esophageal mucosa is smooth without evidence of focal stricture, ulceration, or abnormal outpouching. No gastroesophageal reflu x disease was identified. Tertiary contractions are present. IMPRESSION: Mild esophageal dysmotility, no evidence for reflux or hiatal hernia.
--- NOTE | 2023-03-22 10:30 | MM ---
Reason for Exam: Screening (asymptomatic). Last mammogram was performed 1 year(s) and 1 month(s) ago. Patient History: Menarche at age 11. First Full-Term at age 18. Left ovary removed at age 31. Right ovary removed at age 31. Hysterectomy at age 31. Postmenopausal. Estrogen for 3 years from age 31 until age 34. 05/24/2009, Benign Core Biopsy on the right side. Sister had breast cancer. Mother had breast cancer. Risk Values: Danielle 5 year model risk: 9.5%. NCI Lifetime model risk: 27.5%. Prior Study Comparison: 10/12/2019 Bilateral Screening Mammogram, [facility]. 01/27/2021 Bilateral Screening Mammogram, [facility]. 03/10/2022 Bilateral MG 3D screening mammo w/cad, [facility]. Tissue Density: There are scattered fibroglandular densities. Findings: Analyzed By CAD. Mammotome biopsy clip of the right breast is redemonstrated. There is occasional scattered tiny benign-appearing round calcification throughout the bilateral breasts redemonstrated. There is dystrophic calcification in the upper right breast redemonstrated. There is no suspicious group of microcalcifications or new suspicious mass in either breast. Overall Assessment: Benign, BI-RAD 2 Management: Screening Mammogram of both breasts in 1 year. . Patient should continue monthly self-breast exams. A clinical breast exam by your physician is recommended on an annual basis. This exam should not preclude additional follow-up of suspicious palpable abnormalities. Note on Danielle scores and lifetime risk: 1. A Danielle score greater than 3% is considered moderate risk. If this is the case, consider specialist referral to assess eligibility for a risk reducing agent. 2. If overall lifetime risk for the development of breast cancer is 20% or higher, the patient may qualify for future screening with alternating mammogram and breast MRI. Electronically signed and approved by: Migue Ryan M.D.
== END | disposition home or self-care (01) ==
LOC: RADMAMWWP 07:20
PROVIDERS: ATTEND Family Medicine
DX: Z12.31 Encounter for screening mammogram for malignant neoplasm of breast (principal); K22.4 Dyskinesia of esophagus; Z78.0 Asymptomatic menopausal state; Z80.3 Family history of malignant neoplasm of breast
CPT/HCPCS: 74220; 77063; 77067

== ENCOUNTER → 2023-04-26 | Outpatient (CLI) | payer MEDICARE, OTHER ==
--- NOTE | 2023-04-26 15:50 | NM ---
EXAMINATION TYPE: NM bone scan whole body DATE OF EXAM: 04/26/2023 COMPARISON: NONE CLINICAL INDICATION: Female, 68 years old with history of M76.21; Delayed whole-body scanning was performed following the injection of 21.9 mCi Tc 99m MDP. Images acq uired 3 hours post injection. FINDINGS: There is degenerative uptake seen about the shoulders, elbows, wrists, bilateral ankles and mid feet. There is also degenerative uptake about the thoracic spine and lower lumbar spine. Photopenic defect is noted of the bilateral knees compatible with prior total knee arthroplasty. There is no intense u ptake to suggest osseous lesion or acute fracture. IMPRESSION: Degenerative uptake as noted.
== END | disposition home or self-care (01) ==
LOC: RADNMMAIN 10:42
PROVIDERS: ATTEND Family Medicine
DX: M76.21 Iliac crest spur, right hip (principal); M16.11 Unilateral primary osteoarthritis, right hip
CPT/HCPCS: 78306; A9503

== ENCOUNTER → 2023-06-30 | Outpatient (CLI) | payer MEDICARE, OTHER ==
--- NOTE | 2023-07-01 10:29 | MR ---
EXAMINATION TYPE: MR lumbar spine wo con DATE OF EXAM: 06/30/2023 1:55 PM CLINICAL INDICATION:Female, 68 years old with history of M54.50, M47.26; PHH, Lower back pain, LLE ra diculopathy, weakness, falls. COMPARISON: None TECHNIQUE: Multi planar, multi sequence imaging was performed utilizing: T1-weighted, T2-weighted, a nd turbo inversion recovery imaging of the lumbar spine. IV Contrast: cc . None. FINDINGS: Alignment: The lumbar vertebral bodies have preserved heights and alignment. Cord: The conus medullaris and the distal spinal cord appear unremarkable with regards to their signa l intensity and morphology. Bones/Discs: Multilevel disc degeneration changes with osteophyte formation, disc space narrowing, Sc hmorl's nodes, and facet joint arthropathy. No abnormal inversion recovery signal to suggest bony misty ma. Intervertebral disc signal is maintained. T12-L1: No evidence of significant spinal canal stenosis or neural foraminal stenosis. L1-L2: No evidence of significant spinal canal stenosis or neural foraminal stenosis. L2-L3: No evidence of significant spinal canal stenosis or neural foraminal stenosis. L3-L4: No evidence of significant spinal canal stenosis or neural foraminal stenosis. L4-L5: No evidence of significant spinal canal stenosis or neural foraminal stenosis. L5-S1: The disc is rounded posterior morphology without significant spinal canal stenosis. Facet join t arthropathy with mild moderate to severe right and mild left neural foraminal stenosis. No significant spinal canal or neural foraminal stenosis in the remainder of the visualized levels. Other findings: Multiple left peripelvic renal cyst. IMPRESSION: 1. No definitive evidence of disc herniation or significant spinal canal stenosis. 2. Moderate severe right L5-S1 neural foraminal stenosis. No significant left neural foraminal steno sis identified.
== END | disposition home or self-care (01) ==
LOC: RADMRIMAIN 13:05
PROVIDERS: ATTEND Orthopaedic Surgery
DX: M47.26 Other spondylosis with radiculopathy, lumbar region (principal); M99.73 Connective tissue and disc stenosis of intervertebral foramina of lumbar region; W19.XXXA Unspecified fall, initial encounter
CPT/HCPCS: 72148

== ENCOUNTER → 2023-08-05 | Outpatient (CLI) | payer MEDICARE, OTHER ==
[2023-08-05 10:14] VITALS: BP 145/82; PULSE 74; RESP 16; TEMP 98.5
--- NOTE | 2023-08-05 11:20 | P.PAINPG ---
PQRS Measure Charge Sheet Comment: HISTORY OF PRESENT ILLNESS: A 68 yr old female as a referral from Dr Hannon presents today w severe and chronic LBP x 1 yr secondary to DDD, spondylosis and facet arthropathy without myelopathy for evaluation. Pt states pain level is provoked at 6/10 in intensity, constant, localized in the lower lumbar spine, achy in character w shooting pain towards the R hip. Pain is provoked by over activity. Pain is alleviated by PT x 3 wks which she is currently in, heat, ice, medications (Mobile, Ibu, Tyl), topical, repositioning and rest. Oswestry axial pain score at 28. PMH: OA, CAD, COPD, Dementia, DM II, Eye Disorder, Hyperlipidemia, HTN, OA, JANA, Glaucoma, Macular Degeneration, MDD/ Anxiety PSH: L Foot Surgery (2022), L Knee Arthroplasty, R Total Knee Arthroplasty, Appendectomy, Back Surgery, Antoine-En-Y Surgery, Hysterectomy, Joint Replacement, Cervical Fusion, EGDs w Sclerotherapy, Colonoscopies, Sigmoidoscopy, L CTR SH: Former tobacco user, No ETOH abuse, No illicit drug use. Lives w adult Daughter. Uses cane/ walker for ambulatory assistance FH: Mo- CA. Fa- Skin CA. Sis- "Spider CA" All: See list Meds: See list REVIEW OF ORGAN SYSTEMS: CONSTITUTIONAL: No fevers or chills. No recent weight loss. NEUROLOGICAL: + numbness and tingling along the distal extremities. No seizure disorders or headaches. MUSCULOSKELETAL: + pain PSYCHIATRIC: Denies current depression or suicidal thoughts. Physical Examinations : Constitutional : Cooperative , not in acute distress . Neurologic : Cranial nerve II to XII intact. No focal neurological deficits. Psychiatric : alert & oriented x 3. Matching mood & appropriate affect. Judgment & insight intact. Musculoskeletal : Cervical Spine Motor strength in the deltoid and biceps: Normal right side. Normal Left side Motor strength biceps and the wrist extensors: Normal right side . Normal left side Motor strength in the triceps muscle: Normal right side. Normal left side Deep tendon reflexes: Normal at the biceps. Normal at Brachioradialis. Normal at triceps Vertebral body tenderness to deep palpation over Cervical facet loading test: positive bilaterally Spurling test: positive bilaterally Neck distraction test: positive bilaterally Suze sign: positive bilaterally Lumbar spine Motor strength lower extremities ,thigh and legs 5/5 Right side , 5/5 Left side Deep tendon reflexes : Normal Knee Jerk. Normal Ankle Jerk Vertebral body tenderness over L5 Linda Test positive Lumbar facet Loading Test: positive Right / positive Left Range of motion of the lumbar spine Flexion 30 degrees, extension 10 degrees Straight Leg Raise test: Left/ Right positive at <35 degrees Mulugeta test: positive right / positive left. Severe tenderness over the Sacroiliac joint on the Right / Left sides Gaenslen test: positive bilaterally Seated flexion test: positive bila terally. Sacral spine : Severe tenderness over the Sacroiliac joint: right side / left side Range of motion: Flexion of the lumbar spine <60 degrees Range of motion: Extension of the lumbar spine <20 degrees Gaenslen's Test positive Jhonatan's Test positive Mulugeta test: positive right side / left side Thigh Thrust Test Sacral Thrust Test Imaging: MRI noncontrast of the lumbar spine from 06/30/23 reviewed Assessment/ Plan : Lumbar DDD Recommendation of PETR L5-S1. May need a series of injections for optimal pain relief. Risks, benefits of procedure discussed and patient verbalized understanding. Admits to anti- coagulant use or medical history of diabetes. Protocol for discontinuation/ continuation of medications edith procedure discussed. Minimal anesthesia provided, if clinically indicated, consisting of Versed and Fentanyl. All questions answered. I have spent greater than 30 minutes on patient care today. Dr Oliva was available by phone for the evaluation of this patient. The time was used to review the medical records including relevant urine studies and Prescription history (MAPs), review of the available imaging, evaluation and examination of the patient, coordination of care with the medical staff and if applicable referring physicians, as well as creation of the medical record PQRS Narrative: Smoking Status Former smoker Home Medications: Ambulatory Orders DULoxetine HCL [Cymbalta] 60 mg PO BID 03/26/14 metFORMIN HCL [Glucophage] 1,000 mg PO QAM 03/26/14 Montelukast [Singulair] 10 mg PO HS 02/01/18 Dextroamphetamine/Amphetamine [Adderall] 20 mg PO BID PRN 03/30/19 buPROPion SR [Wellbutrin Sr] 300 mg PO QAM 03/30/19 Ferrous Sulfate [Feosol] 325 mg PO DAILY 07/10/22 Omeprazole 20 mg PO QAM 07/10/22 Rosuvastatin Calcium 40 mg PO HS 07/10/22 HYDROcodone/APAP 10-325MG [Mobile 10-325] 1 tab PO Q6HR PRN #27 tab 07/16/22 Benazepril [Lotensin] 10 mg PO DAILY 11/13/22 Brexpiprazole [Rexulti] 2 mg PO DAILY 11/13/22 Bumetanide [BUMEX] 1 mg PO DAILY 11/13/22 Potassium Chloride ER [K-Dur 20] 10 meq PO DAILY 11/13/22 metFORMIN HCL [Glucophage] 500 mg PO HS 12/03/22 oxyCODONE-APAP 7.5-325MG [Percocet 7.5-325 mg] 1 tab PO Q6HR PRN #30 tab 12/04/22 Controlled Substance Measures - Controlled Substance Measures Is patient prescribed a controlled substance at discharge?: No
== END ==
LOC: PNWHC3 09:03
PROVIDERS: ATTEND Specialist
DX: M51.16 Intervertebral disc disorders with radiculopathy, lumbar region (principal); M19.90 Unspecified osteoarthritis, unspecified site; I25.10 Atherosclerotic heart disease of native coronary artery without angina pectoris; J44.9 Chronic obstructive pulmonary disease, unspecified; E11.39 Type 2 diabetes mellitus with other diabetic ophthalmic complication; H40.9 Unspecified glaucoma; H42 Glaucoma in diseases classified elsewhere; E78.5 Hyperlipidemia, unspecified; F32.A Depression, unspecified; F41.9 Anxiety disorder, unspecified; Z79.84 Long term (current) use of oral hypoglycemic drugs; Z87.891 Personal history of nicotine dependence; Z88.8 Allergy status to other drugs, medicaments and biological substances
CPT/HCPCS: 99211

== ENCOUNTER → 2023-08-16 | Outpatient (CLI) | payer MEDICARE, OTHER ==
--- NOTE | 2023-08-16 14:14 | MR ---
EXAMINATION TYPE: MR cervical spine wo con DATE OF EXAM: 08/16/2023 COMPARISON: Cervical spine radiograph 07/29/2023, 05/19/2023. HISTORY: Neck pain, headaches, weakness in fingers. TECHNIQUE: Multiplanar, multisequence images of the cervical spine were acquired without contrast. FINDINGS: Cervical segments are intact. Postsurgical changes from anterior cervical fusion of C4-C5. This creat es susceptibility artifact which limits evaluation. There is normal alignment. Cervical spinal cord is of grossly normal signal. Craniovertebral junction relationships are within normal limits. No sp inal edema identified. Multilevel disc desiccation. C2-C3: No disc bulge/herniation or protrusion. No Canal stenosis. Foramina are patent bilaterally. C3-C4: Broad-based disc bulge with mild to moderate effacement of the intrathecal sac. Uncovertebral joint hypertrophy resulting in mild to moderate bilateral neural foraminal stenosis. C4-C5: Broad-based disc bulge with mild effacement of anterior thecal sac. Uncovertebral joint hypert rophy. Mild bilateral neural foraminal stenosis. C5-C6: No significant central canal stenosis. Uncovertebral joint hypertrophy. Mild bilateral neural foraminal stenosis. C6-C7: Broad-based disc bulge with mild to moderate central canal stenosis. Uncovertebral joint hyper trophy resulting in moderate bilateral neural foraminal stenosis. C7-T1: No disc bulge/herniation or protrusion. No Canal stenosis. Foramina are patent bilaterally. IMPRESSION: 1. Postsurgical changes from ACDF C5-C6. 2. Multilevel degenerative disc disease and uncovertebral joint hypertrophy which is most pronounced at C3-C4 and C6-C7 with mild to moderate central canal stenosis.
== END | disposition home or self-care (01) ==
LOC: RADMRIMAIN 13:04
PROVIDERS: ATTEND Orthopaedic Surgery
DX: M47.812 Spondylosis without myelopathy or radiculopathy, cervical region (principal); M48.02 Spinal stenosis, cervical region; M50.31 Other cervical disc degeneration, high cervical region; M50.323 Other cervical disc degeneration at C6-C7 level
CPT/HCPCS: 72141

== ENCOUNTER 2023-09-14 11:13 | Day surgery (SDC) | payer MEDICARE, OTHER ==
[2023-08-26 14:02] VITALS: BMI 32.8
[~2023-09-14 11:13] MED LIST changes: -ACETAMINOPHEN TAB 500 MG TAB PO PRN; -DEXAMETHASONE SOD PHOSPHATE 4 MG/ML 1 ML VIAL IV ONE; -HYDROmorphone 0.5 MG/0.5 ML SYRINGE IVP PRN; +LACTATED RINGERS 1,000 ML IV SCH; -MELOXICAM 7.5 MG TAB PO PRN; -ONDANSETRON 4 MG/2 ML VIAL IVP ONE; -TRANEXAMIC ACID IN NACL,ISO-OS 1,000 MG in SALINE 1 100ML.BAG IVPB PRN
[2023-09-14] MEDS ORDERED: LACTATED RINGERS 1,000 ML IV SCH (11:57)
[2023-09-14 12:24] LABS: Glucose,Whole Blood 139 mg/dL (70-110)
[2023-09-14 12:35] VITALS: TEMP 98.2
[2023-09-14] MEDS ORDERED: ROPIVACAINE 5MG/ML 20ML VIAL ONE (13:13)
[2023-09-14] MEDS ORDERED: IOPAMIDOL M200 10 ML VIAL ONE (13:13)
[2023-09-14] MEDS ORDERED: methylPREDNISolone ACETATE 80 MG/ML 1 ML VIAL ONE (13:13)
[2023-09-14 14:08] VITALS: RESP 18
[2023-09-14 14:39] VITALS: BP 170/65; PULSE 80
--- NOTE | 2023-09-14 15:17 | P.PCN ---
Description of Procedure: Preprocedure diagnosis. Post laminectomy syndrome. Lumbar radiculopathy. Postprocedure diagnosis. As above. Procedure done. Injection of radial contrast material into the caudal epidural space. Caudal epidurogram, interpretation of caudal epidurogram, caudal epidural steroid injection under fluoroscopic guidance. Anesthesia. Local infiltration with local anesthetics. Blood loss. None. Indication. Discussed with the patient procedure, alternatives, complications which may including infection bleeding and nerve damage aggravation of pain all of which could be permanent. Patient understands and questions were answered. Procedure note. Attempted to do interlaminar epidural steroid injection at L3 4 level but because of the postsurgical changes could not get access to the epidural space. To avoid accidental dural puncture, decided to do an epidural steroid in caudal approach. After getting consent patient in OR in prone position. Back prepped with chlorhexidine 3 times and draped in sterile fashions. 10 mL of 1% lidocaine injected subcutaneously. Under AP and crosstable lateral view of the fluor oscope, 20-gauge Tuohy needle was introduced through the sacral hiatus into caudal epidural space. After needle position confirmation by AP and crosstable lateral view, 5 mL of Omnipaque 200 radiocontrast material injected which was noted into the caudal epidural space. No contrast was noted into the intrathecal or intravascular space. After repeat negative aspiration 10 mL of solution injected which consists of 9 mL of preservative-free normal saline mixed with 1 mL of 80 mg Depo-Medrol. Tuohy needle was taken out and bandages applied. Disposition. Patient tolerated the procedure well. No complication. Discharged home in stable condition.
--- NOTE | 2023-09-14 19:52 | FL ---
Fluoroscopy INDICATION: Pain FINDINGS: Fluoroscopy time: 96.4 seconds. Total dose area product (DAP) in uGy*m?, mGy*cm? (or similar): 0.90617 Images obtained: 3. IMPRESSION: 1. Documentation of fluoroscopy.
== END 2023-09-14 14:18 | disposition home or self-care (01) ==
LOC: ORPAIN 11:13
PROVIDERS: ATTEND Pain Medicine Interventional Pain Medicine
DX: M54.16 Radiculopathy, lumbar region (principal); M96.1 Postlaminectomy syndrome, not elsewhere classified; E11.9 Type 2 diabetes mellitus without complications; Z88.8 Allergy status to other drugs, medicaments and biological substances
CPT/HCPCS: 62323; J1040; Q9966; J2795

== ENCOUNTER → 2023-10-25 | Outpatient (CLI) | payer MEDICARE, OTHER ==
--- NOTE | 2023-10-25 09:48 | US ---
EXAMINATION TYPE: US arterial LE single level DATE OF EXAM: 10/25/2023 9:24 AM CLINICAL INDICATION: Female, 68 years old with history of I73.9 PERIPHERAL VASCULAR DISEASE, UNSPECIF IED; Intermittent pain bilateral legs, worse on the left. Cold feet History of: Smoker: previous Hypertension: yes Diabetic: yes Hyperlipidemia: yes TIA/CVA: no Previous Vascular Surgery: no ID: no Vascular Ulcers: no Claudication: no Gangrene: no Doppler Waveforms: Right: Left: Pulse Volume Recording: Pressure Gradients: Right Brachial Pressure: 153 Left Brachial Pressure: 150 Ankle-Brachial Indices: Right: 1.12 Left: 1.20 Toe Brachial Indices: Right: 0.72 Left: 0.79 There are monophasic waveforms within the digital arteries with diminished ratios compatible with wyatt e residual artery stenosis present bilaterally. IMPRESSION: 1. Distal lower extremity digital artery stenosis. The more proximal vessels appear normal.
== END | disposition home or self-care (01) ==
LOC: RADUSWWP 08:57
PROVIDERS: ATTEND Podiatrist
DX: I70.213 Atherosclerosis of native arteries of extremities with intermittent claudication, bilateral legs (principal); E11.51 Type 2 diabetes mellitus with diabetic peripheral angiopathy without gangrene
CPT/HCPCS: 93922

== ENCOUNTER → 2023-12-06 | Outpatient (CLI) | payer MEDICARE, OTHER ==
--- NOTE | 2023-12-06 11:12 | CT ---
EXAMINATION TYPE: CT cervical spine wo con CT DLP: 456.7 mGycm, Automated exposure control for dose reduction was used. DATE OF EXAM: 12/06/2023 11:05 AM COMPARISON: None. CLINICAL INDICATION:Female, 68 years old with history of M54.2 cervicalgia; TECHNIQUE: Axial CT images from the skull base to the inferior aspect of T2 we obtained without intra venous contrast. Coronal and sagittal reformatted images were also reviewed. Contrast used: mL of , (if blank None) Oral contrast used: (if blank None) FINDINGS: Fracture: None. Osseous structures: Fixation changes at C5-C6 with good osseous fusion of the disc space. Multilevel degeneration changes remain with osteophytes, disc spacing, osteophyte formation and facet and uncove rtebral joint arthropathy. Vertebral alignment: Alignment within normal limits. Spinal canal/Neural Foramina: No evidence of significant spinal canal narrowing. No evidence for sign ificant neural foraminal stenosis. Neck soft tissues: Prevertebral soft tissues are within normal limits. Other: The airway is patent. The lung apices are clear. IMPRESSION: 1. No evidence of cervical spine fracture. 2. Posttreatment changes with C5-C6 is fixation hardware intact. There is good osseous fusion of the C5-C6 vertebral bodies. 3. Mild multilevel degenerative disc disease.
== END | disposition home or self-care (01) ==
LOC: RADCTMAIN 10:50
PROVIDERS: ATTEND Orthopaedic Surgery
DX: M50.30 Other cervical disc degeneration, unspecified cervical region (principal); Z98.1 Arthrodesis status
CPT/HCPCS: 72125

== ENCOUNTER → 2024-01-07 | Outpatient (CLI) | payer MEDICARE, OTHER | END | disposition home or self-care (01) | LOC: LABPAT 10:32 | PROVIDERS: ATTEND Orthopaedic Surgery | DX: Z53.9 Procedure and treatment not carried out, unspecified reason (principal) ==

== ENCOUNTER → 2024-01-14 | Outpatient (CLI) | payer MEDICARE, OTHER ==
--- NOTE | 2024-01-17 13:26 | CT ---
EXAMINATION TYPE: CT foot LT wo con CT DLP: 184.3 mGycm, Automated exposure control for dose reduction was used. DATE OF EXAM: 01/14/2024 9:13 AM COMPARISON: . Extremity radiograph same day. CLINICAL INDICATION:Female, 68 years old with history of S92.902K unspecified FRACTURE OF LEFT FOOT, SUBS FOR FX W; PHH, left medial foot pain, arthritis TECHNIQUE: Axial images were obtained of the CT foot LT wo con, Additional coronal and sagittal refor matted images and soft tissue and bone window were obtained for review. 3-D reconstruction was create d on a separate workstation. Contrast used: mL of , (None if empty) Oral contrast used: (None if empty) FINDINGS: 3 metal susan 4 fixation of the mid foot. Fine detail symphysis thickness fracture. No fr acture can be partially obscured by the metal streak artifact. No grossly evident hardware loosening or infection. No significant soft tissue swelling or joint effusion is identified. No focal muscular atrophy. Subcutaneous edema present around the mid foot. This cannot exclude a cell ulitis. Correlate clinically.. Displacement? Angulation (distal fragment? No. IMPRESSION: Hardware fixation of midfoot with hardware grossly in good position without obvious complication. Possible superficial cellulitis. Correlate clinically.
== END | disposition home or self-care (01) ==
LOC: RADCTMAIN 08:46
PROVIDERS: ATTEND Podiatrist
DX: S92.902K Unspecified fracture of left foot, subsequent encounter for fracture with nonunion (principal); M19.072 Primary osteoarthritis, left ankle and foot; X58.XXXD Exposure to other specified factors, subsequent encounter; Z98.890 Other specified postprocedural states

== ENCOUNTER → 2024-01-14 | Outpatient (CLI) | payer MEDICARE, OTHER | END | disposition home or self-care (01) | LOC: LABPAT 09:06 | PROVIDERS: ATTEND Orthopaedic Surgery | DX: Z01.812 Encounter for preprocedural laboratory examination (principal); Z22.322 Carrier or suspected carrier of Methicillin resistant Staphylococcus aureus; M48.02 Spinal stenosis, cervical region; M50.20 Other cervical disc displacement, unspecified cervical region | CPT/HCPCS: 86850; 86900; 86901; 87070 ==

== ENCOUNTER → 2024-01-20 | Outpatient (CLI) | payer MEDICARE, OTHER ==
[2024-01-20 21:40] LABS: HCT 30.5 % (37.2-46.3); HGB 9.3 g/dL (12.0-15.0); MCH 30.5 pg (27.0-32.0); MCHC 30.5 g/dL (32.0-37.0); Mean Platelet Volume 11.5 FL (9.5-12.2); NRBC Per 100 WBC 0 X 10*3/uL (0.00-0.01); Platelet Count 238 X 10*3/uL (140-440); RBC 3.05 X 10*6/uL (4.10-5.20); RDW 13.7 % (11.5-14.5); WBC 8.41 X 10*3/uL (4.50-10.00)
[2024-01-20 23:03] LABS: ALT 26 U/L (8-44); AST 19 U/L (13-35); Albumin 3.9 g/dL (3.8-4.9); Albumin/Globulin Ratio 1.62 Ratio (1.60-3.17); Alkaline Phosphatase 99 U/L (41-126); BUN/Creat Ratio 14.16 Ratio (12.00-20.00); Blood Urea Nitrogen 26.9 mg/dL (9.0-27.0); Calcium 9.1 mg/dL (8.7-10.3); Carbon Dioxide 24.2 mmol/L (21.6-31.8); Chloride 106 mmol/L (96-109); Globulin 2.4 g/dL (1.6-3.3); Glucose 168 mg/dL (70-110); Potassium 4.2 mmol/L (3.5-5.5); Sodium 141 mmol/L (135-145); Total Bilirubin 0.2 mg/dL (0.3-1.2); Total Protein 6.3 g/dL (6.2-8.2)
== END | disposition home or self-care (01) ==
LOC: LABWHC1 12:04
PROVIDERS: ATTEND Orthopaedic Surgery
DX: Z01.812 Encounter for preprocedural laboratory examination (principal)
CPT/HCPCS: 36415; 80053; 82306; 85027

== ENCOUNTER 2024-01-21 10:47 | Observation (INO) | payer MEDICARE, OTHER ==
[2024-01-17 16:26] VITALS: BMI 34.0
[~2024-01-21 10:47] MED LIST changes: -LACTATED RINGERS 1,000 ML IV SCH; +TRANEXAMIC 1,000 MG/100ML-NACL 1,000 MG in SALINE 1 100ML.BAG IVPB PRN
[2024-01-21] MEDS ORDERED: HYDROmorphone 0.5 MG/0.5 ML SYRINGE IVP PRN ×2 (11:14→16:36)
[2024-01-21] MEDS ORDERED: LIDOCAINE 1% (10MG/ML) FOR IV START INTRADERMA PRN (11:14)
[2024-01-21] MEDS: LACTATED RINGERS 1,000 ML IV SCH (11:39)
[2024-01-21] MEDS: ACETAMINOPHEN TAB 500 MG TAB PO PRN (11:40)
[2024-01-21] MEDS: GABAPENTIN 300 MG CAP PO PRN (11:40)
[2024-01-21] MEDS: ONDANSETRON 4 MG/2 ML VIAL IVP PRN (11:59)
--- NOTE | 2024-01-21 12:02 | P.HPOR ---
History of Present Illness H&P Date: 01/07/24 .D:Date: 01/07/24 : 09:32am .T:Title: [facility] SPINE [place] HISTORY AND PHYSICAL Age: 68 year Height: 5'1" Weight: 176 lbs BP:126/76 BMI: 33.25 kg/m2 Occupation: PT [employer] VAS: 4 Hand:Right IMPRESSION: It was my pleasure to have seen and examined Stacia. I reviewed the patient's clinical syndrome, physical findings, and imaging studies during the appointment today. It is my impression that the patient has a diagnosis of. 1. C3-4 herniated nucleus pulposus with stenosis 2. 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 Bilateral upper extremity radiculopathy 4. Bilateral upper extremity weakness I outlined the natural course history without intervention and various interventional options. Spine Surgery Risk Review Ms. Palomino is presenting for evaluation of neck and bilateral upper extremity pain, bilateral upper extremity numbness, tingling, and weakness. It was my pleasure to have seen and examined Ms. Palomino. In our visit today we have had a chance to go over subjective complaints, physical examination findings and treatments including the natural course history without intervention and various interventional options. The patients [facility] - Re-reviewed with the patient today. IMPRESSION: 1. Postsurgical changes from ACDF C5-C6. 2. Multilevel degenerative disc disease and uncovertebral joint hypertrophy which is most pronounced at C3-C4 and C6-C7 with mild to moderate central canal stenosis. XRay Cervical multiview (Lateral, Flexion, Extension, AP, Oblique) 6 views taken at [facility] on 05/19/23: - Re-reviewed with the patient today. Mild spondylitic and degenerative changes with straightening of the normal lordosis. Hardware noted from previous surgery at levels C5C6. Hardware is intact, no migration. Vertebral body heights are preserved. C5-C6 foraminal stenosis. No acute osseous abnormalities. On physical exam, Ms. Palomino demonstrates: An ache-like pain throughout the posterior neck that radiates down into the bilateral upper extremities with a tight, sharp quality. The patient states that her upper extremity pain is associated with numbness and tingling bilaterally. She notes worsening bilateral upper extremity weakness. The patient states that her symptoms worsen with any movement of the head or with prolonged use of the upper extremities. The patient reports experiencing moderate to severe sleep disturbances related to her ongoing pain and associated symptoms. I have explained to the patient that as their condition progresses it will cause further neurological deficits and eventual paralysis. Based on the patients imaging, physical exam, and the rapid progression and disabling nature of their symptoms, at this time I recommend surgery in the form of a: C3-5 ACDF. I discussed the risk and benefits of this procedure at length with Ms. Palomino. The patient agreed to considered pursuing the procedure above mentioned. Prior to surgery, she should follow up with her PCP (Cardio, ID, IM etc) for clearance. Questions were invited and answered, and the patient wishes to proceed as outlined below. Currently, I am recommendin.C3-5 anterior cervical discecomty and fusion 2.Review of surgical risks and benefits as well as an educational packet on the proposed surgical procedure. Risks: All surgical procedures come with inherent risks, including those related to positioning, anesthesia, intraoperative findings, and postoperative complications. It is important to understand that surgery does not come with any guarantee of a successful outcome as complications and adverse events are always possible. The patient was given a handout in office today discussing the surgical procedure and risks associated with the intervention, both of which were discussed with the patient. These risks include but are not limited to the following: * Experiencing same, different or even worse symptoms in back, neck, arms, or legs compared to before surgery. Requiring further surgery or other forms of treatment presently or at some time in the future at same or other levels of the intended spine surgery. On an extreme but fortunately relatively rare basis severe complication such as blindness, stroke, heart attack, temporary and/or permanent nerve injury, paralysis, coma, or may occur, sometimes without known explanation. Surgical complications may include but are not limited to risk of infection, fluid accumulation in the surgical dissection site, including a seroma or hematoma, that requires additional surgery, wound drainage, bleeding, new numbness or weakness, vision changes/loss, spinal fluid leakage, non-healing and/or infected incision, headaches, difficulty or inability to swallow, hoarseness, hemopneumothorax, pneumothorax, impotence, retrograde ejaculation, vaginal dryness; injury to nerves, spinal cord, blood vessels, lymphatics or other vital organs (i.e., bowel injury, injury to the great vessels); heterotop ic bone formation; complications related to the hardware such as screws, rods, cages including misplaced hardware, device failure, instrumentation at the wrong spine level, hardware fracture/breakage, or hardware loosening; vertebral failure of the spinal column above or below the newly placed hardware; retained surgical instrumentations or devices and the need for further surgery. * Medical risks of the planned spine surgery include but are not limited to generalized Infections to the whole body or local areas outside of the surgical site (sepsis), heart attack, bleeding, anaphylaxis, meningitis, seizure, epilepsy, hearing loss, burn guerrero, laceration of the head or other areas of the body, bruising, hypersensitivity of the skin, bladder over distension; allergic reaction; shoulder injury related to positioning; fat, blood and air clots to other areas of the body like heart, lungs, brain; failure of internal organs such as lungs, kidneys, liver and excessive bleeding. If blood transfusions are necessary, note that transfusions may cause intolerance reactions such as anaphylaxis or other complex reactions. Despite best efforts, the results of spine surgery might not heal in terms of bone, soft tissues such as skin, fascia, ligaments, and joints. Additionally, in order to achieve best possible results, spine surgery may be carried out beyond the initially planned levels and involve decompression, fusion including insertion of hardware at levels other than the original intended area of surgical interest change some portions of the procedure in order to ensure the best possible outcomes. With spine surgery and spinal fusion, there are different off label uses of instrumentation (devices, implants and hardware) as well as biological substances (bone morphogenic proteins, demineralized bone matrix) as well as using extra bone from allograft sources (i.e. cadaver bone) or autograft (iliac crest bone, ribs, or the spine itself). The patient has been given information about these practices and their inherent risks and benefits. [facility] is an educational center that serves as a training facility for neurosurgical and orthopedic [employer] and Nursing students. Physician assistants are medically trained surgical providers who function in the outpatient, inpatient, and operating room setting under the direct supervision of the attending surgeon. [facility] has multiple operating rooms with single and overlapping rooms running daily. They currently function under the required guidelines as produced by the [facility] Finance Committee with regards to the overlapping rooms and will continue to comply with changes to this policy as they occur. The requirements include and are complied with as follows: (1) the critical portions of the overlapping rooms will not occur at the same time, (2) the attending physician will be physically present during the critical portions of the procedure and immediately available during the entire case, and (3) a back-up attending is designated should the primary attending not be immediately available. The patient has had a chance to review all the listed information, has been given print outs detailing this information, and has had all his/her questions answered to their satisfaction. It was my pleasure to have seen and examined Ms. Palomino. In our visit today we have had a chance to go over my understanding of our patient's current condition, the natural course history without intervention and various interventional options. Questions were invited and answered, and the patient wishes to proceed as outlined above. I have seen and examined the patient for 25 minutes and we have spent more than 50% of the time in repeat and detailed counseling about the patient's condition, its natural course history with out and as much as can be predicted with surgery and re-review of various surgical treatment options. In conclusion, Ms. Palomino requested we proceed with the above suggested surgery and are willing to accept risks and limitations of the suggested surgery as nature of the disease process and our best attempts at treatment for the condition. Thank you again for allowing us to be part of your patient's care. Please don't hesitate to contact me if you have any further questions. Signed and authenticated by: [employer] P:\\\\p part\\\\Files\\\\[id number]\\\\[id number]\\\\LEVH 001\\\\[id number]\\\\[id number]\\\\[id number]\\\\[id number]\\\\[id number]\\\\[id number]\\\\[id number]\\\\[id number]\\\\LEV Q001\\\\[id number]\\\\[id number]\\\\[id number].PNG \\d [facility] [address], [address] [place] [address] FOLLOW UP: Post Procedure PATIENT EDUCATION: Medications Reviewed: YES In our visit today Ms. Palomino and I have had a chance to go over my understanding of the patient's current condition, the natural course history without intervention and various interventional options. Questions were invited and answered, and the patient wishes to proceed as outlined above. I will be sure to keep you updated after Ms. Palomino returns here for further follow-up. Thank you again for your referral. Please do not hesitate to contact me if you have any further questions. Signed and authenticated by: Fady Erazo [facility] [address] [facility], [address] [address] This message is confidential, intended only for the named recipient(s) and may contain information that is privileged or exempt from disclosure under applicable law. If you are not the intended recipient(s), you are notified that the dissemination, distribution or copying of this information is strictly prohibited. If you received this message in error, please notify the sender then delete this message. # SIGNED BY Fady Alvarez (GOO)01/07/2024 11:31AM Past Medical History Past Medical History: Coronary Artery Disease (CAD), COPD, Dementia, Diabetes Mellitus, Eye Disorder, Hyperlipidemia, Hypertension, Osteoarthritis (OA), Sleep Apnea/CPAP/BIPAP Additional Past Medical History / Comment(s): NIDDM type II, generalized neuropathy per pt, beginnings of glaucoma and macular degeneration bilateral eyes, JANA with Cpap, chronic low back pain, DDD, external hemorrhoids. EARLY DEMENTIA. States does not use CPAP @ this time.States having stomach pain @ times. Left total knee arthroplasty, right total knee arthroplasty. History of Any Multi-Drug Resistant Organisms: None Reported Past Surgical History: Appendectomy, Back Surgery, Bariatric Surgery, Hysterectomy, Joint Replacement, Orthopedic Surgery Additional Past Surgical History / Comment(s): Antoine en Y, EGDs-had sclerotherapy with one egd, colonoscopies, benign polypectomy, sigmoidoscopy, bilateral total knees with R total knee revision, L carpal tunnel release, low back surgery with sciatic nerve involved, Cervical fusion. Past Anesthesia/Blood Transfusion Reactions: Previous Problems w/ Anesthesia, Family History of Problems w/ Anesthesia Additional Past Anesthesia/Blood Transfusion Reaction / Comment(s): Pt states she had low oxygen after bariatric surgery that took a long time to resolve. Sister is allergic to a lot of "pain meds, had problems." Past Psychological History: Anxiety, Depression Additional Psychological History / Comment(s): Pt has her adult amparo living with her. She has a cane and a walker which she uses prn. Smoking Status: Former smoker Past Alcohol Use History: None Reported Additional Past Alcohol Use History / Comment(s): Quit smoking in 1984, smoked for 15-20 yrs. Past Drug Use History: None Reported - Past Family History Mother Family Medical History: Cancer, Deep Vein Thrombosis (DVT) Additional Family Medical History / Comment(s): Several types of cancer. Father Family Medical History: Cancer Additional Family Medical History / Comment(s): Skin Cancer. Brother(s) Family Medical History: Cancer Sister(s) Family Medical History: Cancer Additional Family Medical History / Comment(s): 2 Sisters had "spider" cancer. Medications and Allergies Home Medications Medication Instructions Recorded Confirmed Type DULoxetine HCL [Cymbalta] 60 mg PO BID 03/26/14 01/21/24 History metFORMIN HCL [Glucophage] 1,000 mg PO QAM 03/26/14 01/21/24 History Montelukast [Singulair] 10 mg PO HS 02/01/18 01/21/24 History Dextroamphetamine/Amphetamine 20 mg PO BID PRN 03/30/19 01/21/24 History [Adderall] buPROPion SR [Wellbutrin Sr] 300 mg PO QAM 03/30/19 01/21/24 History Ferrous Sulfate [Feosol] 325 mg PO DAILY 07/10/22 01/21/24 History Omeprazole 20 mg PO QAM 07/10/22 01/21/24 History Rosuvastatin Calcium 40 mg PO HS 07/10/22 01/21/24 History Benazepril [Lotensin] 10 mg PO QAM 11/13/22 01/21/24 History Bumetanide [BUMEX] 2 mg PO DAILY 11/13/22 01/21/24 History Potassium Chloride ER [K-Dur 20] 10 meq PO DAILY 11/13/22 01/21/24 History metFORMIN HCL [Glucophage] 500 mg PO HS 12/03/22 01/21/24 History HYDROcodone/APAP 10-325MG [[place] 1 tab PO Q6HR PRN 08/26/23 01/21/24 History 10-325] Cariprazine HCl [Vraylar] 3 mg PO QAM 01/17/24 01/21/24 History Allergies Allergy/AdvReac Type Severity Reaction Status Date / Time propranolol HCl Allergy SOB,n/v Verified 01/21/24 11:32 [From Inderal LA] hydroxyzine HCl AdvReac Nausea & Verified 01/21/24 11:32 [From Vistaril] Vomiting hydroxyzine pamoate AdvReac Nausea & Verified 01/21/24 11:32 [From Vistaril] Vomiting Physical Examination Osteopathic Statement: *. No significant issues noted on an osteopathic structural exam other than those noted in the History and Physical/Consult.
[2024-01-21 12:04] LABS: Glucose,Whole Blood 134 mg/dL (70-110)
[2024-01-21] MEDS ORDERED: LIDOCAINE 1% INJ 10MG/ML (20 ML MDV) ONE (12:26)
[2024-01-21] MEDS ORDERED: PROPOFOL 10 MG/ML 20 ML VIAL IV ONE (12:26)
[2024-01-21] MEDS ORDERED: ROCURONIUM 10 MG/ML (5 ML VIAL) IV ONE (12:26)
[2024-01-21] MEDS ORDERED: hydrALAZINE HCL 20 MG/ML 1 ML VIAL ONE (12:26)
[2024-01-21] MEDS ORDERED: KETAMINE HCL IN 0.9 % NACL 50 MG/5 ML SYRINGE ONE (12:26)
[2024-01-21] MEDS ORDERED: fentaNYL (PF) 50 MCG/ML 2 ML AMP ONE (12:26)
[2024-01-21] MEDS ORDERED: TRANEXAMIC 1,000 MG/100ML-NACL PREMIX BAG ONE (12:26)
[2024-01-21] MEDS ORDERED: METOPROLOL TARTRATE 5 MG/5 ML VIAL IVP ONE (12:26)
[2024-01-21] MEDS ORDERED: GLYCOPYRROLATE 0.2 MG/ML 2 ML VIAL ONE (12:26)
[2024-01-21] MEDS ORDERED: SUCCINYLCHOLINE CHLORIDE 200 MG/10 ML VIAL IV ONE (12:26)
[2024-01-21] MEDS ORDERED: NEOSTIGMINE 1 MG/ML 10 ML VIAL ONE (12:26)
[2024-01-21] MEDS: THROMBIN (BOVINE) 5,000 UNIT VIAL TOPICAL ONE (12:29)
--- NOTE | 2024-01-21 15:13 | P.OP ---
Date of Procedure: 01/21/24 Preoperative Diagnosis: 1. C3-4, C4-5 ADJACENT SEGMENT DISEASE 2. C3-5 SEVERE SPONDYLOSIS WITH SEVERE STENOSIS 3. UE RADICULOPATHY 4. UE WEAKNESS 5. COMPLEX MEDICAL PATIENT Postoperative Diagnosis: 1. C3-4, C4-5 ADJACENT SEGMENT DISEASE 2. C3-5 SEVERE SPONDYLOSIS WITH SEVERE STENOSIS 3. UE RADICULOPATHY 4. UE WEAKNESS 5. COMPLEX MEDICAL PATIENT Procedure(s) Performed: 1. C3-4 ANTERIOR CERVICAL ARTHRODESIS 2. C4-5 ANTERIOR CERVICAL ARTHRODESIS 3. C3-4 AND C4-5 ANTERIOR INSTRUMENTATION 4. C3-4 AND C4-5 INSERTION OF BIOMECHANICAL DEVICE USE OF IONM USE OF IO MICROSCOPE Implants: 4 LUCERO ANTERIOR CERVICAL CAGES 8MM 14X16 7 DEG x2 16 MM 3.5 MM ANTERIOR INSTRUMENTING SCREWS [employer] Anesthesia: SLY Surgeon: Fady Alvarez Placer Miner #1: Abdiaziz Kilgore (WAS PRESENT AND ASSISTED WITH ALL ASPECTS OF THE CASE FROM POSITION TO CLOSURE) Estimated Blood Loss (ml): 25 IV fluids (ml): 900 Urine output (ml): 250 Pathology: none sent Condition: stable Disposition: PACU Indications for Procedure: Ms. Palomino is presenting for evaluation of neck and bilateral upper extremity pain, bilateral upper extremity numbness, tingling, and weakness. It was my pleasure to have seen and examined Ms. Palomino. In our visit today we have had a chance to go over subjective complaints, physical examination findings and treatments including the natural course history without intervention and various interventional options. The patients imaging demonstrates[facility] - Re-reviewed with the patient today. IMPRESSION: 1. Postsurgical changes from ACDF C5-C6. 2. Multilevel degenerative disc disease and uncovertebral joint hypertrophy which is most pronounced at C3-C4 and C6-C7 with mild to moderate central canal stenosis. XRay Cervical multiview (Lateral, Flexion, Extension, AP, Oblique) 6 views taken at [facility] on 05/19/23: - Re-reviewed with the patient today. Mild spondylitic and degenerative changes with straightening of the normal lordosis. Hardware noted from previous surgery at levels C5C6. Hardware is intact, no migration. Vertebral body heights are preserved. C5-C6 foraminal stenosis. No acute osseous abnormalities. On physical exam, Ms. Palomino demonstrates: An ache-like pain throughout the posterior neck that radiates down into the bilateral upper extremities with a tight, sharp quality. The patient states that her upper extremity pain is associated with numbness and tingling bilaterally. She notes worsening bilateral upper extremity weakness. The patient states that her symptoms worsen with any movement of the head or with prolonged use of the upper extremities. The patient reports experiencing moderate to severe sleep disturbances related to her ongoing pain and associated symptoms. I have explained to the patient that as their condition progresses it will cause further neurological deficits and eventual paralysis. Based on the patients imaging, physical exam, and the rapid progression and disabling nature of their symptoms, at this time I recommend surgery in the form of a: C3-5 ACDF. I discussed the risk and benefits of this procedure at length with Ms. Palomino. The patient agreed to considered pursuing the procedure above mentioned. Prior to surgery, she should follow up with her PCP (Cardio, ID, IM etc) for clearance. Questions were invited and answered, and the patient wishes to proceed as outlined below. Currently, I am recommendin.C3-5 anterior cervical discecomty and fusion Description of Procedure: C3-5 ACDF The patient was seen and examined in the preoperative area. All preoperative protocols were followed. Informed consent was obtained, risks and benefits of the procedure were discussed at length. Risks including bleeding infection damage to the surrounding tissue and risk of reoperation were discussed with the patient. Risk of anesthesia up to and including was discussed with the patient. These are outlined in the risk review. They were willing to accept these risks and all the risks of surgery. The patient was given a weight-based dose of antibiotics in the form of 2 g Ancef. The patient was seen and evaluated by the anesthesia team who deemed them fit for surgery. The site was marked, the patient was willing to proceed with the procedure. The patient was transferred to the operative suite by the Department of anesthesia. They were then drifted off to sleep by the department anesthesia and GETA was performed. The patient tolerated this well. Campbell catheter was placed by nursing staff, a-traumatically. Once confirmation of lines and ventilation the patient was transferred to a Supine Walt table very carefully. All bony prominences including wrists, elbows, axilla, chest, hips, and thighs, and feet were padded very well. Special attention was paid to the genitalia, and these were padded accordingly. SCDs were placed on bilateral lower extremities and were connected. Arms were well padded and placed at their side thumbs up. Once in position, again we confirmed good ventilation capabilities and that lines were running appropriately. The patients Cervical spine was then exposed. 1010s were placed outlining the incision site. Standard alcohol was used to clean the incision site and allowed to dry. C-arm was used to bio-lourdes the patient and confirm level for incision which was marked with a skin marker. Once this was done it was noted that there was a pulsitile mass over the right side of the patients neck just distal to the region of our incision. 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 Vascular surgery was called to evaluate before starting the case to determine if this posed any increased risk. They evaluated clinically and looked at CT scan. There was no issues and no contraindication to moving forward. They are available for any issues. Operative briefing was performed with all teams and everyone in agreement to proceed. The patient was then prepped and draped in a normal sterile fashion. Timeout was then performed, and all parties agreed with the procedure to be performed. Transverse skin incision was then made on the right side of the patient's neck 3 cm and dissection taken down to the platysma which was split transversely. Sub platysma flap was made, and an interval identified between SCM and medial structures. Omohyoid was visualized and protected. Blunt dissection taken down to the anterior cervical fascia which was identified. There was exhuberent scar tissue in the area due to previous surgery and careful and blunt dissection was done to ensure the esophagus was mobilized well off the ALL and that there was good excursion to allow for easy access to both levels. Blunt probe was then placed and lateral image taken which confirmed levels for operation. These levels were then marked with a bovi. Subperiosteal dissection of the longissimus muscles were then done over these levels identifying uncovertebral joints bilaterally. We then removed large anterior osteophytes in this region to help identify the disc spaces and the plate at the C5-6 level which was uncovered with a high speed tyler for reference point as well as caspar pin placement. The fusion was explored in this region and was stable. Retractor was then placed deep to these muscles and held in place with a bed arm. Starting at C3-4, Cooter pins were placed into C3 and C4 and gentle distraction taken out over the levels. Jessica rongeur used to remove disc material. Operating microscope brought in for visualization. Complete discectomy performed at this level with curette, rongeur and pituitary. High speed tyler used to remove osteophytes anteriorly and posteriorly until PLL was identified. 6-0 up curette then used to identify the canal and resect the PLL. 2-0 and 3-0 Kerrison used then to remove PLL and disc herniation and performed b/l foraminotomies. Once good decompression was accomplished, meticulous hemostasis was performed. Sizers were then placed under lateral fluoroscopy until the desired height and lordosis. Cage was then selected, packed with autograft and MagnatOs and placed under lateral imaging. Once in good position it was tested and stable. Motors run before and after cage placement were stable. The wound was irrigated, and autograft placed lateral to the cage anteriorly for fusion. Cooter pin was then removed from C3 and placed into C5. Gentle distraction taken out over C4-5 now. Complete discectomy done at C4-5 as described including decompression, b/l foraminotomies and PLL resection. Burring of endplates was minimal, osteophytes removed as described. Spacers were then sized and placed under lateral imaging. Cage selected, packed with graft and placed under lateral images. Once in position, meticulous hemostasis performed, and motors remained stable before and after cage placement. AP image confirmed good placement of cages. Wound was irrigated. Anterior instrumenting screws were then drilled and measured and 16mm screws were placed into cranial and caudal bodies of C3-5. All locking mechanisms were set, and all screws had good purchase. Final AP and lateral images taken confirmed good placement of hardware and good reduction and pentecostalism of height. The wound was then irrigated copiously with NSS. Surgicel placed deep in the wound. No drain was placed due to proximity of the anomylous carotid distal to our incision. Layered closure then performed with 3-0 Vicryl in the platysma and subQ tissue. 4-0 Strata fix in the subcuticular tissue. The wound was then cleaned, and dried and skin glue placed. Once glue dried an Opifoam was placed. The patient was then transferred back to their hospital bed a-traumatically. The drain continued to hold suction. They were placed in a soft collar. They were then awakened by the department of anesthesia having tolerated the procedure well without complications.
[2024-01-21] MEDS ORDERED: CYCLOBENZAPRINE 5 MG TAB PO PRN (16:36)
[2024-01-21] MEDS ORDERED: ONDANSETRON 4 MG/2 ML VIAL IVP PRN (16:36)
--- NOTE | 2024-01-21 16:58 | XR ---
Fluoroscopy History: HERNIATED DISC Anterior cervical discectomy and fusion 22 sec fl .2836 DAP
[2024-01-21] MEDS: HYDROcodone/APAP 10-325MG 1 EACH TAB PO PRN (17:45)
[2024-01-21] MEDS: ACETAMINOPHEN TAB 325 MG TAB PO SCH (17:55)
[2024-01-21 17:56] LABS: Glucose,Whole Blood 167 mg/dL (70-110)
[2024-01-21] MEDS: HYDROmorphone 1 MG/ML 1 ML SYRINGE IVP PRN (20:43)
[2024-01-22 00:05] LABS: INR 0.9 (<1.2); Partial Thromboplastin Time 23.5 sec (22.0-30.0); Prothrombin Time 10.3 sec (10.0-12.5)
--- NOTE | 2024-01-22 07:32 | P.PN ---
Subjective Progress Note Date: 01/22/24 Principal diagnosis: status post C3-C5 ACDF patient examined today at bedside, she is resting in her hospital bed, her soft collar is in good position and condition. Patient has been tolerating clear liquids at this time. She is having some slight throat pain but nothing severe. She has been breathing with no difficulties. She feels an overall change in the numbness and tingling in the upper extremities. Urinary catheter remains in place. Patient denies any headaches, lightheadedness, chest pain or shortness of breath Objective - Vital Signs Vital signs: Vital Signs Temp 98.4 F 01/22/24 07:21 Pulse 68 01/22/24 07:21 Resp 17 01/22/24 07:21 BP 167/76 01/22/24 07:21 Pulse Ox 99 01/22/24 07:21 FiO2 Intake & Output 01/21/24 01/22/24 01/22/24 18:59 06:59 18:59 Intake Total 1325 900 Output Total 435 1200 Balance 890 -300 Weight 79 kg Intake: IV 1325 Oral 900 Output: Urine 410 1200 Estimated Blood Loss 25 Other: Voiding Method Indwelling Catheter - Exam Gen: AOx3, NAD VSS stable at this time Integument: Postop dressing is in good position and condition, no obvious spotting present Palpation: mild tenderness with palpation to right side anterior lateral neck ROM: full range of motion in all major muscle groups of the bilateral upper and lower extremities, no focal deficit Sensory Exam: Senory exam to light touch is intact C5-T1 sensory exam to light touch is intact L1-S1 Motor: 4/5 strength appreciated the bilateral upper extremities with shoulder elevation, shoulder abduction, elbow extension, elbow flexion, wrist extension, wrist extension, egg buyer 5/5 strength appreciated bilateral lower EXTR with hip flexion, knee extension, knee flexion, plantarflexion, dorsiflexion, EHL, FHL Reflexes: 2/4 in all UE and LE negative Suze's bilaterally - Labs Labs: Abnormal Lab Results - Last 24 Hours (Table) 01/21/24 01/21/24 Range/Units 12:02 17:54 POC Glucose (mg/dL) 134 H 167 H (70-110) mg/dL Assessment and Plan Assessment: postoperative day #1 status post C3-C5 ACDF Plan: pain control, continue with current medications DVT prophylaxis, compression stockings while in bed monitor surgical dressing discontinue urinary catheter later this afternoon soft collar at all times advance diet as tolerated medical recommendations appreciate discharge planning: Anticipate discharge to home in the next 24 to 48 hours Time with Patient: Less than 30
[2024-01-22] MEDS: BUMETANIDE 1 MG TAB PO SCH (08:54)
[2024-01-22] MEDS: DULoxetine HCL 60 MG CAPSULE.DR PO SCH (08:54)
[2024-01-22] MEDS: PANTOPRAZOLE 40 MG TABLET PO SCH (08:54)
[2024-01-22] MEDS: lisinopriL 10 MG TAB PO SCH (08:54)
[2024-01-22] MEDS: buPROPion XL 300 MG TAB.ER.24H PO SCH (08:54)
[2024-01-22] MEDS: POTASSIUM CHLORIDE ER 10 MEQ TAB.ER.PRT PO SCH (08:54)
[2024-01-22] MEDS: FERROUS SULFATE 325 MG TAB PO SCH (08:54)
[2024-01-22] MEDS: SENNOSIDES-DOCUSATE SODIUM 1 EACH TAB PO SCH (08:54)
[2024-01-22] MEDS: NON FORMULARY DRUG (Cariprazine Hcl [Vraylar] 1.5 MG Capsule) PO SCH (09:17)
[2024-01-22 09:43] LABS: Basophils # (A) 0.04 X 10*3/uL (0.00-0.10); Basophils % (A) 0.3 %; Eosinophils # (A) 0.19 X 10*3/uL (0.04-0.35); Eosinophils % (A) 1.6 %; HCT 30.8 % (37.2-46.3); HGB 9.4 g/dL (12.0-15.0); Lymphocytes # (A) 2.23 X 10*3/uL (0.90-5.00); Lymphocytes % (A) 18.8 %; MCH 29.9 pg (27.0-32.0); MCHC 30.5 g/dL (32.0-37.0); MCV 98.1 FL (80.0-97.0); Monocytes # (A) 0.74 X 10*3/uL (0.20-1.00); Monocytes % (A) 6.2 %; NRBC Per 100 WBC 0 X 10*3/uL (0.00-0.01); Neutrophils # (A) 8.63 X 10*3/uL (1.80-7.70); Neutrophils % (A) 72.8 %; Platelet Count 245 X 10*3/uL (140-440); RBC 3.14 X 10*6/uL (4.10-5.20); RDW 13.6 % (11.5-14.5); WBC 11.87 X 10*3/uL (4.50-10.00)
[2024-01-22 09:47] LABS: BUN/Creat Ratio 13.37 Ratio (12.00-20.00); Blood Urea Nitrogen 25.4 mg/dL (9.0-27.0); Calcium 8.8 mg/dL (8.7-10.3); Carbon Dioxide 24.3 mmol/L (21.6-31.8); Chloride 100 mmol/L (96-109); Glucose 129 mg/dL (70-110); Potassium 4.5 mmol/L (3.5-5.5); Sodium 136 mmol/L (135-145)
--- NOTE | 2024-01-22 10:09 | CT ---
EXAMINATION TYPE: CT cervical spine wo con DATE OF EXAM: 01/22/2024 COMPARISON: none HISTORY: S/P C3-C5 ACDF CT DLP: 351.[address] of the cervical spine was performed with bone and soft tissue window settings submitted . Coronal and sagittal reconstruction is obtained. There are postoperative changes of anterior cervi opal discectomy and fusion at C3-4, C4-5 and C5-C6. Intervertebral spacer is noted at each level. Ante rior fixation screws and an anterior fixation screws and plate are in place. Postoperative alignment as near anatomic. Posterior ridging at the C5-6 level. Anterior postsurgical soft tissue changes are present. Remaining levels are within normal limits. IMPRESSION: Appropriate postoperative alignment and appearance.
[2024-01-22] MEDS ORDERED: DEXTROSE 50% SYRINGE 50 ML IVP PRN ×2 (15:29)
--- NOTE | 2024-01-22 15:31 | P.CONS ---
History of Present Illness - Reason for Consult Consult date: 01/22/24 Medical management Requesting physician: Fady Alvarez - Chief Complaint Cervical spine surgery - History of Present Illness This is a very pleasant 68-year-old patient, follows with Dr. Catarino Hannon. Chronic stable medical conditions include COPD, cognitive impairment, diabetes, hypertension, hyperlipidemia, obstructive sleep apnea, neuropathy, macular de generation, obstructive sleep apnea-does not use CPAP. History of Antoine-en-Y gastric surgery. Anxiety depression. Patient has been bothered with neck pain for some time. Intermittent weakness with radiculopathy in both the arms. Also some trouble walking. Does use a walker at home. Patient status post cervical spine surgery. Collar in place. Tolerating diet. Some pain present. Review of systems: GEN.: None EYES: None HEENT: None NECK: Pain RESPIRATORY: None CARDIOVASCULAR: None GASTROINTESTINAL: None GENITOURINARY: None MUSCULOSKELETAL: Arthritic pain in different joints LYMPHATICS: None HEMATOLOGICAL: None PSYCHIATRY: None NEUROLOGICAL: As above Social history: Her adult daughter lives with her. Disease a cane and a walker as needed. Patient smoked for 15 to 20 years stopped in 1984. No alcohol. Physical examination: VITAL SIGNS: 97.4, 70, 16, 176 x 81, 99% room air GENERAL: BMI 34, reclining bed awake not in distress. EYES: Pupils equal. Conjunctiva mathew l. HEENT: External appearance of nose and ears normal, oral cavity grossly normal. NECK: Wearing a cervical collar. HEART: First and second heart sounds are normal; no edema. LUNGS: Respiratory rate normal; clear to auscultation. ABDOMEN: Soft, nontender, liver spleen not palpable, no masses palpable. PSYCH: Alert and oriented x3; mood and affect mathew l. MUSCULOSKELETAL:No Clubbing/cyanosis;muscles-grossly intact NEUROLOGICAL: Cranial nerves grossly intact; no facial asymmetry, power and sensation grossly intact. LYMPHATICS: No lymph nodes palpable in the axilla and neck INVESTIGATIONS, reviewed in the clinical context: CT scan cervical spine without contrast: Appropriate postoperative alignment and appearance. January 21: White: 0.8 hemoglobin 9.4 platelets 245 potassium 4.5 BUN 25.4 crea tinine 1.9 January 20: White count 8.1 hemoglobin 9.3 potassium 4.2 creatinine 1.96 Previous labs: Hemoglobin 9.2, in 2018 Assessment plan: -C3-C4-C5. Severe spondylosis with severe stenosis, upper extremity radiculopathy and weakness Patient underwent arthrodesis, anterior instrumentation, insertion of biomedical device, with cervical cages implant etc. By Dr. Alvarez on January 20: -Diabetes mellitus type 2 on oral hypoglycemic Metformin. Follow Accu-Cheks and sliding scale -Anxiety depression Wellbutrin SR 300 mg a day Cymbalta.Vraylar -Hyperlipidemia Rosuvastatin 40 mg nightly -COPD, in a prior smoker Singulair -GERD Omeprazole 20 mg a day -Essential hypertension Lotensin 10 mg a day -Normocytic anemia Check iron studies. B12. Folate. -Obesity BMI 34 Care was discussed with the patient. Questions answered. Home medications have been resumed. Thank you Dr. Alvarez Past Medical History Past Medical History: Coronary Artery Disease (CAD), COPD, Dementia, Diabetes Mellitus, Eye Disorder, Hyperlipidemia, Hypertension, Osteoarthritis (OA), Sleep Apnea/CPAP/BIPAP Additional Past Medical History / Comment(s): NIDDM type II, generalized neuropathy per pt, beginnings of glaucoma and macular degeneration bilateral eyes, JANA with Cpap, chronic low back pain, DDD, external hemorrhoids. EARLY DEMENTIA. States does not use CPAP @ this time.States having stomach pain @ times. Left total knee arthroplasty, right total knee arthroplasty. History of Any Multi-Drug Resistant Organisms: None Reported Past Surgical History: Appendectomy, Back Surgery, Bariatric Surgery, Hysterectomy, Joint Replacement, Orthopedic Surgery Additional Past Surgical History / Comment(s): Antoine en Y, EGDs-had sclerotherapy with one egd, colonoscopies, benign polypectomy, sigmoidoscopy, bilateral total knees with R total knee revision, L carpal tunnel release, low back surgery with sciatic nerve involved, Cervical fusion. Past Anesthesia/Blood Transfusion Reactions: Previous Problems w/ Anesthesia, Family History of Problems w/ Anesthesia Additional Past Anesthesia/Blood Transfusion Reaction / Comm: Pt states she had low oxygen after bariatric surgery that took a long time to resolve. Sister is allergic to a lot of "pain meds, had problems." Past Psychological History: Anxiety, Depression Additional Psychological History / Comment(s): Pt has her adult daughter living with her. She has a cane and a walker which she uses prn. Smoking Status: Former smoker Past Alcohol Use History: None Reported Additional Past Alcohol Use History / Comment(s): Quit smoking in 1984, smoked for 15-20 yrs. Past Drug Use History: None Reported - Past Family History Mother Family Medical History: Cancer, Deep Vein Thrombosis (DVT) Additional Family Medical History / Comment(s): Several types of cancer. Father Family Medical History: Cancer Additional Family Medical History / Comment(s): Skin Cancer. Brother(s) Family Medical History: Cancer Sister(s) Family Medical History: Cancer Additional Family Medical History / Comment(s): 2 Sisters had "spider" cancer. Medications and Allergies Home Medications Medication Instructions Recorded Confirmed Type DULoxetine HCL [Cymbalta] 60 mg PO BID 03/26/14 01/21/24 History metFORMIN HCL [Glucophage] 1,000 mg PO QAM 03/26/14 01/21/24 History Montelukast [Singulair] 10 mg PO HS 02/01/18 01/21/24 History Dextroamphetamine/Amphetamine 20 mg PO BID PRN 03/30/19 01/21/24 History [Adderall] buPROPion SR [Wellbutrin Sr] 300 mg PO QAM 03/30/19 01/21/24 History Ferrous Sulfate [Feosol] 325 mg PO DAILY 07/10/22 01/21/24 History Omeprazole 20 mg PO QAM 07/10/22 01/21/24 History Rosuvastatin Calcium 40 mg PO HS 07/10/22 01/21/24 History Benazepril [Lotensin] 10 mg PO QAM 11/13/22 01/21/24 History Bumetanide [BUMEX] 2 mg PO DAILY 11/13/22 01/21/24 History Potassium Chloride ER [K-Dur 20] 10 meq PO DAILY 11/13/22 01/21/24 History metFORMIN HCL [Glucophage] 500 mg PO HS 12/03/22 01/21/24 History HYDROcodone/APAP 10-325MG [Eunice 1 tab PO Q6HR PRN 08/26/23 01/21/24 History 10-325] Cariprazine HCl [Vraylar] 3 mg PO QAM 01/17/24 01/21/24 History Cyclobenzaprine [Flexeril] 5 mg PO BID PRN #30 tablet 01/22/24 Rx HYDROcodone/APAP 10-325MG [Eunice 1 tab PO Q6HR PRN 7 Days #28 tab 01/22/24 Rx 10-325] Sennosides/Docusate Sodium 2 each PO DAILY PRN #30 tablet 01/22/24 Rx [Senna-S 8.6-50 mg Tablet] cefaDROXiL [Duricef] 500 mg PO Q12HR 5 Days #10 cap 01/22/24 Rx Allergies Allergy/AdvReac Type Severity Reaction Status Date / Time propranolol HCl Allergy SOB,n/v Verified 01/21/24 11:32 [From Inderal LA] hydroxyzine HCl AdvReac Nausea & Verified 01/21/24 11:32 [From Vistaril] Vomiting hydroxyzine pamoate AdvReac Nausea & Verified 01/21/24 11:32 [From Vistaril] Vomiting Physical Exam Vitals: Vital Signs Temp Pulse Pulse Resp BP BP BP 01/22/24 07:21 98.4 F 68 17 167/76 01/22/24 04:58 61 175/77 01/22/24 03:07 97.5 F L 64 20 130/76 01/21/24 20:45 97.6 F 66 20 176/77 01/21/24 20:30 61 137/84 01/21/24 20:25 68 174/83 01/21/24 20:10 66 137/74 01/21/24 19:50 63 132/75 01/21/24 19:38 66 137/74 01/21/24 19:35 62 145/73 01/21/24 19:18 63 132/75 01/21/24 19:15 62 155/77 01/21/24 19:03 62 145/73 01/21/24 19:00 62 145/73 01/21/24 18:48 62 155/77 01/21/24 18:33 61 154/80 01/21/24 18:16 61 177/79 01/21/24 17:48 63 166/80 01/21/24 17:33 64 155/77 01/21/24 17:28 97.6 F 64 20 153/76 01/21/24 17:02 63 16 136/72 01/21/24 16:47 64 16 136/70 01/21/24 16:30 63 16 134/72 01/21/24 16:18 63 16 134/71 01/21/24 16:03 63 16 120/68 01/21/24 15:47 62 16 103/58 01/21/24 15:30 65 14 93/51 01/21/24 15:20 97 F L 59 L 14 94/54 Pulse Ox 01/22/24 07:21 99 01/22/24 04:58 100 01/22/24 03:07 97 01/21/24 20:45 100 01/21/24 20:30 100 01/21/24 20:25 100 01/21/24 20:10 100 01/21/24 19:50 100 01/21/24 19:38 100 01/21/24 19:35 100 01/21/24 19:18 100 01/21/24 19:15 100 01/21/24 19:03 100 01/21/24 19:00 100 01/21/24 18:48 100 01/21/24 18:33 100 01/21/24 18:16 100 01/21/24 17:48 97 01/21/24 17:33 94 L 01/21/24 17:28 91 L 01/21/24 17:02 97 01/21/24 16:47 97 01/21/24 16:30 97 01/21/24 16:18 97 01/21/24 16:03 97 01/21/24 15:47 97 01/21/24 15:30 97 01/21/24 15:20 97 Intake and Output 01/21/24 01/22/24 01/22/24 22:59 06:59 14:59 Intake Total 75 900 Output Total 1200 2500 Balance 75 -300 -2500 Intake: IV 75 Oral 900 Output: Urine 1200 2500 Other: Voiding Method Indwelling Catheter Indwelling Catheter Weight 79 kg Results CBC & Chem 7: 01/22/24 06:27 01/22/24 06:27 Labs: Abnormal Lab Results - Last 24 Hours (Table) 01/21/24 01/21/24 01/22/24 Range/Units 12:02 17:54 06:27 WBC 11.87 H (4.50-10.00) X 10*3/uL RBC 3.14 L (4.10-5.20) X 10*6/uL Hgb 9.4 L (12.0-15.0) g/dL Hct 30.8 L (37.2-46.3) % MCV 98.1 H (80.0-97.0) FL MCHC 30.5 L (32.0-37.0) g/dL Neutrophils # 8.63 H (1.80-7.70) X 10*3/uL Creatinine (0.6-1.5) mg/dL Est GFR (CKD-EPI) (>=60) Glucose (70-110) mg/dL POC Glucose (mg/dL) 134 H 167 H (70-110) mg/dL 01/22/24 Range/Units 06:27 WBC (4.50-10.00) X 10*3/uL RBC (4.10-5.20) X 10*6/uL Hgb (12.0-15.0) g/dL Hct (37.2-46.3) % MCV (80.0-97.0) FL MCHC (32.0-37.0) g/dL Neutrophils # (1.80-7.70) X 10*3/uL Creatinine 1.9 H (0.6-1.5) mg/dL Est GFR (CKD-EPI) 28 L (>=60) Glucose 129 H (70-110) mg/dL POC Glucose (mg/dL) (70-110) mg/dL
[2024-01-22 16:36] LABS: Glucose,Whole Blood 164 mg/dL (70-110)
[2024-01-22] MEDS: INSULIN ASPART (NovoLOG) 100 UNIT/ML VIAL SQ SCH (17:25)
[2024-01-22] MEDS: ATORVASTATIN 80 MG TAB PO SCH (19:59)
[2024-01-22] MEDS: MONTELUKAST 10 MG TAB PO SCH (19:59)
[2024-01-22] MEDS: metFORMIN 500 MG TAB PO SCH (19:59)
[2024-01-22 20:59] LABS: Glucose,Whole Blood 214 mg/dL (70-110)
[2024-01-23 06:21] LABS: Glucose,Whole Blood 141 mg/dL (70-110)
[2024-01-23] MEDS ORDERED: metFORMIN 500 MG TAB PO SCH (09:00)
[2024-01-23 11:46] LABS: Glucose,Whole Blood 144 mg/dL (70-110)
--- NOTE | 2024-01-23 12:28 | P.PN ---
Progress Note - Text Progress Note Date: 01/23/24 - Chief Complaint Cervical spine surgery - History of Present Illness This is a very pleasant 68-year-old patient, follows with Dr. Catarino Hannon. Chronic stable medical conditions include COPD, cognitive impairment, diabetes, hypertension, hyperlipidemia, obstructive sleep apnea, neuropathy, macular degeneration, obstructive sleep apnea-does not use CPAP. History of Antoine-en-Y gastric surgery. Anxiety depression. Patient has been bothered with neck pain for some time. Intermittent weakness with radiculopathy in both the arms. Also some trouble walking. Does use a walker at home. Patient status post cervical spine surgery. Collar in place. Tolerating diet. Some pain present. January 22: Reclining in bed. Power in the arms appears good. Tolerating diet. No BM. Did have the patient to sit up more in the chair. Active Medications Acetaminophen (Acetaminophen Tab 325 Mg Tab) 650 mg PO Q6HR [facility] Last Admin: 01/23/24 07:43 Dose: Not Given Hydrocodone Bitart/Acetaminophen (Hydrocodone/Apap 10-325mg 1 Each Tab) 1 each PO Q4HR PRN PRN Reason: Pain Scale 7 - 10 Last Admin: 01/23/24 06:42 Dose: 1 each Atorvastatin Calcium (Atorvastatin 80 Mg Tab) 80 mg PO HS [facility] Last Admin: 01/22/24 19:59 Dose: 80 mg Bumetanide (Bumetanide 1 Mg Tab) 2 mg PO DAILY [facility] Last Admin: 01/23/24 08:22 Dose: 2 mg Bupropion HCl (Bupropion Xl 300 Mg Tab.Er.24h) 300 mg PO QAM [facility] Last Admin: 01/23/24 08:22 Dose: 300 mg Cyclobenzaprine HCl (Cyclobenzaprine 5 Mg Tab) 5 mg PO BID PRN PRN Reason: Muscle Spasm Dextrose/Water (Dextrose 50% Syringe 50 Ml) 25 ml IVP PER PROTOCOL PRN; Protoco l PRN Reason: Hypoglycemia Dextrose/Water (Dextrose 50% Syringe 50 Ml) 50 ml IVP PER PROTOCOL PRN; Protocol PRN Reason: Hypoglycemia Duloxetine HCl (Duloxetine Hcl 60 Mg Capsule.) 60 mg PO BID [facility] Last Admin: 01/23/24 08:22 Dose: 60 mg Ferrous Sulfate (Ferrous Sulfate 325 Mg Tab) 325 mg PO DAILY [facility] Last Admin: 01/23/24 08:22 Dose: 325 mg Hydromorphone HCl (Hydromorphone 0.5 Mg/0.5 Ml Syringe) 0.5 mg IVP Q3HR PRN PRN Reason: Pain Scale 6 To 8 Hydromorphone HCl (Hydromorphone 1 Mg/Ml 1 Ml Syringe) 1 mg IVP Q3HR PRN PRN Reason: Pain Scale 9 To 10 Last Admin: 01/21/24 20:43 Dose: 1 mg Lactated Ringer's (Lactated Ringers) 1,000 mls @ 20 mls/hr IV .Q24H [facility] Stop: 02/20/24 11:15 Last Admin: 01/23/24 12:16 Dose: Not Given Insulin Aspart (Insulin Aspart (Novolog) 100 Unit/Ml Vial) 0 unit SQ AC-TID [facility]; Protocol Last Admin: 01/23/24 12:16 Dose: Not Given Lidocaine HCl (Lidocaine 1% (10mg/Ml) For Iv Start) 0.1 ml INTRADERMA PER PROTOCOL PRN PRN Reason: IV Start Stop: 02/20/24 11:15 Lisinopril (Lisinopril 10 Mg Tab) 10 mg PO [facility] Last Admin: 01/23/24 08:22 Dose: 10 mg Metformin HCl (Metformin 500 Mg Tab) 500 mg PO [facility] Last Admin: 01/22/24 19:59 Dose: 500 mg Metformin HCl (Metformin 500 Mg Tab) 1,000 mg PO [facility] Montelukast Sodium (Montelukast 10 Mg Tab) 10 mg PO [facility] Last Admin: 01/22/24 19:59 Dose: 10 mg Non-Formulary Medication (Cariprazine Hcl [Vraylar]) 3 mg PO [facility] Last Admin: 01/23/24 08:23 Dose: Not Given Ondansetron HCl (Ondansetron 4 Mg/2 Ml Vial) 4 mg IVP Q8HR PRN PRN Reason: Nausea And Vomiting Pantoprazole Sodium (Pantoprazole 40 Mg Tablet) 40 mg PO [facility] Last Admin: 01/23/24 08:22 Dose: 40 mg Potassium Chloride (Potassium Chloride Er 10 Meq Tab.Er.Prt) 10 meq PO DAILY [facility] Last Admin: 01/23/24 08:22 Dose: 10 meq Senna/Docusate Sodium (Sennosides-Docusate Sodium 1 Each Tab) 2 each PO DAILY [facility] Last Admin: 01/23/24 08:22 Dose: 2 each Social history: Her adult daughter lives with her. Disease a cane and a walker as needed. Patient smoked for 15 to 20 years stopped in 1984. No alcohol. Physical examination: VITAL SIGNS: 97.2, 84, 16, 154 x 77, 98% room air GENERAL: BMI 34, reclining bed awake, comfortable EYES: Pupils equal. Conjunctiva mathew l. HEENT: External appearance of nose and ears normal, oral cavity grossly normal. NECK: Wearing a cervical collar. HEART: First and second heart sounds are normal; no edema. LUNGS: Respiratory rate normal; clear to auscultation. ABDOMEN: Soft, nontender, liver spleen not palpable, no masses palpable. PSYCH: Alert and oriented x3; mood and affect mathew l. MUSCULOSKELETAL:No Clubbing/cyanosis;muscles-grossly intact NEUROLOGICAL: Cranial nerves grossly intact; no facial asymmetry, power and sensation grossly intact. INVESTIGATIONS, reviewed in the clinical context: CT scan cervical spine without contrast: Appropriate postoperative alignment and appearance. January 21: White: 0.8 hemoglobin 9.4 platelets 245 potassium 4.5 BUN 25.4 creatinine 1.9 January 20: White count 8.1 hemoglobin 9.3 potassium 4.2 creatinine 1.96 Previous labs: Hemoglobin 9.2, in 2018 Assessment plan: -C3-C4-C5. Severe spondylosis with severe stenosis, upper extremity radiculopathy and weakness Patient underwent arthrodesis, anterior instrumentation, insertion of biomedical device, with cervical cages implant etc. By Dr. Alvarez on January 20: -Diabetes mellitus type 2 on oral hypoglycemic Metformin. Follow Accu-Cheks and sliding scale -Anxiety depression Wellbutrin SR 300 mg a day Cymbalta.Vraylar -Abnormal creatinine. 1.9 Patient's creatinine was 0.78 on February 2023. Check renal ultrasound. UA. IV fluids. Repeat labs in the morning. -Hyperlipidemia Rosuvastatin 40 mg nightly -COPD, in a prior smoker Singulair -GERD Omeprazole 20 mg a day -Essential hypertension Lotensin 10 mg a day -Normocytic anemia Check iron studies. B12. Folate. -Obesity BMI 34 For abnormal creatinine check renal ultrasound, UA. IV fluids. Hold Bumex. Thank you Dr. Alvarez Past Medical History Past Medical History: Coronary Artery Disease (CAD), COPD, Dementia, Diabetes Mellitus, Eye Disorder, Hyperlipidemia, Hypertension, Osteoarthritis (OA), Sleep Apnea/CPAP/BIPAP Additional Past Medical History / Comment(s): NIDDM type II, generalized neuropathy per pt, beginnings of glaucoma and macular degeneration bilateral eyes, JANA with Cpap, chronic low back pain, DDD, external hemorrhoids. EARLY DEMENTIA. States does not use CPAP @ this time.States having stomach pain @ times. Left total knee arthroplasty, right total knee arthroplasty. History of Any Multi-Drug Resistant Organisms: None Reported Past Surgical History: Appendectomy, Back Surgery, Bariatric Surgery, Hysterectomy, Joint Replacement, Orthopedic Surgery Additional Past Surgical History / Comment(s): Antoine en Y, EGDs-had sclerotherapy with one egd, colonoscopies, benign polypectomy, sigmoidoscopy, bilateral total knees with R total knee revision, L carpal tunnel release, low back surgery with sciatic nerve involved, Cervical fusion. Past Anesthesia/Blood Transfusion Reactions: Previous Problems w/ Anesthesia, Family History of Problems w/ Anesthesia Additional Past Anesthesia/Blood Transfusion Reaction / Comm: Pt states she had low oxygen after bariatric surgery that took a long time to resolve. Sister is allergic to a lot of "pain meds, had problems." Past Psychological History: Anxiety, Depression Additional Psychological History / Comment(s): Pt has her adult daughter living with her. She has a cane and a walker which she uses prn. Smoking Status: Former smoker Past Alcohol Use History: None Reported Additional Past Alcohol Use History / Comment(s): Quit smoking in 1984, smoked for 15-20 yrs. Past Drug Use History: None Reported
[2024-01-23] MEDS: SODIUM CHLORIDE 0.45% 1,000 ML IV SCH (12:41)
--- NOTE | 2024-01-23 12:56 | P.PN ---
Subjective Progress Note Date: 01/23/24 Principal diagnosis: status post C3-C5 ACDF patient examined today at bedside, she is resting in her hospital bed, her soft collar is in good position and condition. Patient has been advancing diet as tolerated with no issues. Urinary catheter was removed she has been urinating fine. Internal medicine did order an ultrasound of her kidneys due to elevated creatinine. Patient denies any headaches, lightheadedness, chest pain or shortness of breath Objective - Vital Signs Vital signs: Vital Signs Temp 97.2 F L 01/23/24 07:38 Pulse 84 01/23/24 07:38 Resp 16 01/23/24 07:38 BP 154/77 01/23/24 07:38 Pulse Ox 98 01/23/24 07:38 FiO2 Intake & Output 01/22/24 01/23/24 01/23/24 18:59 06:59 18:59 Output Total 3700 Balance -3700 Output: Urine 3700 Other: Voiding Method Indwelling Catheter - Exam Gen: AOx3, NAD VSS stable at this time Integument: Postop dressing is in good position and condition, no obvious spotting present Palpation: mild tenderness with palpation to right side anterior lateral neck ROM: full range of motion in all major muscle groups of the bilateral upper and lower extremities, no focal deficit Sensory Exam: Senory exam to light touch is intact C5-T1 sensory exam to light touch is intact L1-S1 Motor: 4/5 strength appreciated the bilateral upper extremities with shoulder elevation, shoulder abduction, elbow extension, elbow flexion, wrist extension, wrist extension, amusement ride operator 5/5 strength appreciated bilateral lower EXTR with hip flexion, knee extension, knee flexion, plantarflexion, dorsiflexion, EHL, FHL Reflexes: 2/4 in all UE and LE negative Suze's bilaterally - Labs CBC & Chem 7: 01/22/24 06:27 01/22/24 06:27 Labs: Abnormal Lab Results - Last 24 Hours (Table) 01/22/24 01/22/24 01/23/24 Range/Units 16:35 20:58 06:19 POC Glucose (mg/dL) 164 H 214 H 141 H (70-110) mg/dL 01/23/24 Range/Units 11:45 POC Glucose (mg/dL) 144 H (70-110) mg/dL Assessment and Plan Assessment: Postoperative day #2 status post C3-C5 ACDF Plan: pain control, continue with current medications DVT prophylaxis, compression stockings while in bed monitor surgical dressing soft collar at all times advance diet as tolerated medical recommendations appreciate discharge planning: Orthopedically patient remains stable for discharge, I did prescribe her medications for discharge yesterday, we are waiting to hear back from family if they were able to pick them up. Internal medicine has ordered further test due to elevated creatine, patient will likely be in hospital tonight with hopeful discharge home on 01/24/2024 Time with Patient: Less than 30
--- NOTE | 2024-01-23 13:55 | US ---
EXAMINATION TYPE: US kidneys/renal and bladder DATE OF EXAM: 01/23/2024 COMPARISON: NONE CLINICAL INDICATION: Female, 68 years old with history of Evaluate for CKD; CKD EXAM MEASUREMENTS: Right Kidney: 9.0 x 4.47 x 4.8 cm Left Kidney: 9.1 x 5.3 x 4.9 cm Right Kidney: Hypoechoic lesion lower/lateral pole= 1.1 x 0.9 x 1.1 cm Left Kidney: Lobulated contour, multiple hypoechoic lesions, largest mid= 2.0 x 2.0 x 19 cm Bladder: wnl Bilateral Jets seen: Only right jet visualized There is no evidence for hydronephrosis at this point in time. No nephrolithiasis is seen. No stewart s are identified. The urinary bladder is anechoic. Right ureteral jets are seen. IMPRESSION: 1. No evidence for obstructive uropathy. 2. Bilateral probable cyst simple appearing renal cysts.
[2024-01-23 15:25] LABS: Appearance,Urine Clear (Clear); Bacteria,Urine Rare /hpf; Bilirubin,Urine Negative (Negative); Blood,Urine Small (Negative); Color,Urine Colorless; Glucose,Urine (UA) Negative (Negative); Ketones,Urine Negative (Negative); Leukocyte Esterase,Urine Small (Negative); Mucus,Urine Rare /hpf; Nitrite,Urine Negative (Negative); Protein,Urine Negative (Negative); RBC,Urine 1 /hpf (0-5); Specific Gravity,Urine 1.004 (1.001-1.035); Squamous Epithelial Cell,Urine <1 /hpf (0-4); Urobilinogen,Urine <2.0 mg/dL (<2.0); WBC,Urine 1 /hpf (0-5)
[2024-01-23 16:20] LABS: Glucose,Whole Blood 142 mg/dL (70-110)
[2024-01-23 20:20] LABS: Glucose,Whole Blood 161 mg/dL (70-110)
[2024-01-24 04:12] VITALS: PULSE 74
[2024-01-24 06:18] LABS: Glucose,Whole Blood 129 mg/dL (70-110)
[2024-01-24 07:02] LABS: African American GFR (CKD) 33 (>60 ml/min/1.73 sqM); Anion Gap 7 mmol/L; Blood Urea Nitrogen 26 mg/dL (7-17); Calcium 8.7 mg/dL (8.4-10.2); Carbon Dioxide 28 mmol/L (22-30); Chloride 101 mmol/L (98-107); Glucose 120 mg/dL (74-99); Non-African American GFR(CKD) 28 (>60 ml/min/1.73 sqM); Potassium 4.1 mmol/L (3.5-5.1); Sodium 136 mmol/L (137-145)
[2024-01-24 08:03] VITALS: BP 152/79; RESP 17; TEMP 97.9
--- NOTE | 2024-01-24 09:08 | P.PN ---
Subjective Progress Note Date: 01/24/24 Principal diagnosis: 1. C3-4 herniated nucleus pulposus with stenosis 2. 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 Bilateral upper extremity radiculopathy 4. Bilateral upper extremity weakness Patient seen and examined this morning. Patient is resting currently in bed. Patient reports her pain is managed on current regimen. Soft cervical collar is present. Surgical incision to the anterior cervical spine is well approximated with glue intact. Dressing is CDI. Patient reports significant relief of her radiculopathy and numbness and tingling of her upper extremities since the procedure. She has been urinating without any difficulty. Overall patient states she is happy with her progress and plan of care. Patient is hoping for discharge today. Instructed patient that she is cleared from an Orthopedic standpoint for discharge pending medical clearance. Objective - Vital Signs Vital signs: Vital Signs Temp 97.9 F 01/24/24 07:20 Pulse 74 01/24/24 07:20 Resp 17 01/24/24 07:20 BP 152/79 01/24/24 07:20 Pulse Ox 95 01/24/24 07:20 FiO2 Intake & Output 01/23/24 01/24/24 01/24/24 18:59 06:59 18:59 Other: # Voids 3 - Exam Physical Examination General: The patient is awake and alert, in no acute distress Skin: Skin is warm and dry with no obvious rashes or lesions. Surgical incision to the anterior cervical spine, edges are well approximated with glue intact. Dressing is clean dry and intact. Eye: Pupils are equal, round and reactive to light, extra-ocular movements are intact; there is normal conjunctiva bilaterally. Neck: The neck is supple, there is Mild tenderness and Limited ROM due to surgical procedure and presence of soft cervical collar. Cardiovascular: There is a regular rate and rhythm. No murmur, rub or gallop is appreciated. Respiratory: Respirations are non-labored, breath sounds are equal. Gastrointestinal: Soft, non-distended, non-tender abdomen. Back: There is no tenderness to palpation in the midline, paralumbar, parathoracic or buttocks region. There is no obvious deformity . Musculoskeletal: ROM limited secondary to pain and stiffness from surgical procedure. Muscle strength in all major muscle groups of bilateral upper extremities 4/5, bilateral lower extremities 5/5. Neurological: CN 2-12 intact. There are no obvious motor or sensory deficits. Movement and coordination equal and intact. Sensory exam to light touch intact C5-T1 and intact from L2-S1. Reflexes 2/4 in bilateral upper and lower extremities. Negative Hoffmans, babinski, and clonus signs. Psychiatric: Cooperative, appropriate mood & affect, normal judgment. - Labs CBC & Chem 7: 01/22/24 06:27 01/24/24 06:11 Labs: Abnormal Lab Results - Last 24 Hours (Table) 01/23/24 01/23/24 01/23/24 Range/Units 11:45 15:10 16:19 Sodium (137-145) mmol/L BUN (7-17) mg/dL Creatinine (0.52-1.04) mg/dL Glucose (74-99) mg/dL POC Glucose (mg/dL) 144 H 142 H (70-110) mg/dL Urine Blood Small H (Negative) Ur Leukocyte Esterase Small H (Negative) Urine Bacteria Rare H (None) /hpf Urine Mucus Rare H (None) /hpf 01/23/24 01/24/24 01/24/24 Range/Units 20:19 06:11 06:17 Sodium 136 L (137-145) mmol/L BUN 26 H (7-17) mg/dL Creatinine 1.80 H (0.52-1.04) mg/dL Glucose 120 H (74-99) mg/dL POC Glucose (mg/dL) 161 H 129 H (70-110) mg/dL Urine Blood (Negative) Ur Leukocyte Esterase (Negative) Urine Bacteria (None) /hpf Urine Mucus (None) /hpf Assessment and Plan Assessment: Postop day 3: C3-C5 ACDF 1. C3-4 herniated nucleus pulposus with stenosis 2. 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 Bilateral upper extremity radiculopathy 4. Bilateral upper extremity weakness Plan: -Appreciate senior sustainability consultant and team management. -Activity: Ambulate QID, OOB all meals, up and about, limit lifting bending twisting to less than 5 lbs. Use walker or cane if needed for stability. -Daily PT/OT, increase ambulation strength and balance. -Soft cervical collar when up and about, not needed in bed or chair -Pain control: Adequate at this time -Meds: reviewed -GI ppx: senna -DVT PPX: Heparin -Hygiene: Shower today. Maintain dressing clean and dry. -Encourage IS 10x/hr -Dispo: Anticipate discharge home today with homecare *I reviewed and discussed this case with my attending Dr. Alvarez, whom has reviewed this chart and films and is in agreement with assessment and plan of care as outlined above. I have personally seen and examined the patient, performed the documentation and the assessment and plan as written. Number of minutes spent on the visit: 20m.
[2024-01-24 11:51] LABS: Glucose,Whole Blood 164 mg/dL (70-110)
[2024-01-24 15:06] LABS: % Iron Saturation 13.78
--- NOTE | 2024-01-24 21:08 | P.PN ---
Progress Note - Text Progress Note Date: 01/24/24 - Chief Complaint Cervical spine surgery - History of Present Illness This is a very pleasant 68-year-old patient, follows with Dr. Catarino Hannon. Chronic stable medical conditions include COPD, cognitive impairment, diabetes, hypertension, hyperlipidemia, obstructive sleep apnea, neuropathy, macular degeneration, obstructive sleep apnea-does not use CPAP. History of Antoine-en-Y gastric surgery. Anxiety depression. Patient has been bothered with neck pain for some time. Intermittent weakness with radiculopathy in both the arms. Also some trouble walking. Does use a walker at home. Patient status post cervical spine surgery. Collar in place. Tolerating diet. Some pain present. January 22: Reclining in bed. Power in the arms appears good. Tolerating diet. No BM. Did have the patient to sit up more in the chair. January 23: Sitting up in the chair. Doing well. Pain controlled. Did ambulate. Questions answered. Plan to go home today. Medications reviewed Social history: Her adult daughter lives with her. Disease a cane and a walker as needed. Patient smoked for 15 to 20 years stopped in 1984. No alcohol. Physical examination: VITAL SIGNS: 97.9, 74, 17, 152 x 79, 95% room air GENERAL: Sitting up in a chair comfortable EYES: Pupils equal. Conjunctiva mathew l. HEENT: External appearance of nose and ears normal, oral cavity grossly normal. NECK: Wearing a cervical collar. HEART: First and second heart sounds are normal; no edema. LUNGS: Respiratory rate normal; clear to auscultation. ABDOMEN: Soft, nontender, liver spleen not palpable, no masses palpable. PSYCH: Alert and oriented x3; mood and affect mathew l. MUSCULOSKELETAL:No Clubbing/cyanosis;muscles-grossly intact NEUROLOGICAL: Cranial nerves grossly intact; no facial asymmetry, power and sensation grossly intact. INVESTIGATIONS, reviewed in the clinical context: Iron 39 TIBC 2 8 3% saturation 13.7 ferritin 543 vitamin B12 461 folate 4.4 UA: Negative for protein Renal ultrasound: Right kidney: 9 x 4.4 x 4.8 cm. Left kidney 9 x 1 x 4 0.3 x 4.9 cm. Left kidney lobulated contour multiple hypoechoic lesions. January 23: Potassium 4.[address] scan cervical spine without contrast: Appropriate postoperative alignment and appearance. January 21: White: 0.8 hemoglobin 9.4 platelets 245 potassium 4.5 BUN 25.4 creatinine 1.9 January 20: White count 8.1 hemoglobin 9.3 potassium 4.2 creatinine 1.96 Previous labs: Hemoglobin 9.2, in 2018 Assessment plan: -C3-C4-C5. Severe spondylosis with severe stenosis, upper extremity radiculopathy and weakness Patient underwent arthrodesis, anterior instrumentation, insertion of biomedical device, with cervical cages implant etc. By Dr. Alvarez on January 20: -Diabetes mellitus type 2 on oral hypoglycemic Metformin. Follow Accu-Cheks and sliding scale -Anxiety depression Wellbutrin SR 300 mg a day Cymbalta.Vraylar -Chronic kidney disease stage III. 1.9 Patient's creatinine was 0.78 on February 2023. Renal ultrasound results as above UA negative for protein Follow-up Dr. Sinha-2 weeks -Hyperlipidemia Rosuvastatin 40 mg nightly -COPD, in a prior smoker Singulair -GERD Omeprazole 20 mg a day -Essential hypertension Lotensin 10 mg a day -Normocytic anemia, likely secondary to chronic kidney disease Iron study, B12, folate: All normal -Obesity BMI 34 Discussed with patient. Follow-up with nephrology outpatient. Thank you Dr. Alvarez Past Medical History Past Medical History: Coronary Artery Disease (CAD), COPD, Dementia, Diabetes Mellitus, Eye Disorder, Hyperlipidemia, Hypertension, Osteoarthritis (OA), Sleep Apnea/CPAP/BIPAP Additional Past Medical History / Comment(s): NIDDM type II, generalized neuropathy per pt, beginnings of glaucoma and macular degeneration bilateral eyes, JANA with Cpap, chronic low back pain, DDD, external hemorrhoids. EARLY DEMENTIA. States does not use CPAP @ this time.States having stomach pain @ times. Left total knee arthroplasty, right total knee arthroplasty. History of Any Multi-Drug Resistant Organisms: None Reported Past Surgical History: Appendectomy, Back Surgery, Bariatric Surgery, Hysterectomy, Joint Replacement, Orthopedic Surgery Additional Past Surgical History / Comment(s): Antoine en Y, EGDs-had sclerotherapy with one egd, colonoscopies, benign polypectomy, sigmoidoscopy, bilateral total knees with R total knee revision, L carpal tunnel release, low back surgery with sciatic nerve involved, Cervical fusion. Past Anesthesia/Blood Transfusion Reactions: Previous Problems w/ Anesthesia, Family History of Problems w/ Anesthesia Additional Past Anesthesia/Blood Transfusion Reaction / Comm: Pt states she had low oxygen after bariatric surgery that took a long time to resolve. Sister is allergic to a lot of "pain meds, had problems." Past Psychological History: Anxiety, Depression Additional Psychological History / Comment(s): Pt has her adult daughter living with her. She has a cane and a walker which she uses prn. Smoking Status: Former smoker Past Alcohol Use History: None Reported Additional Past Alcohol Use History / Comment(s): Quit smoking in 1984, smoked for 15-20 yrs. Past Drug Use History: None Reported
== END 2024-01-24 14:37 | disposition home or self-care (01) ==
LOC: OR 10:47 → 4SSUR 10:48
PROVIDERS: ADMIT Orthopaedic Surgery; ATTEND Orthopaedic Surgery
DX: M50.11 Cervical disc disorder with radiculopathy, high cervical region (principal); M48.02 Spinal stenosis, cervical region; M47.22 Other spondylosis with radiculopathy, cervical region; R79.89 Other specified abnormal findings of blood chemistry; I25.10 Atherosclerotic heart disease of native coronary artery without angina pectoris; I10 Essential (primary) hypertension; E78.5 Hyperlipidemia, unspecified; G47.33 Obstructive sleep apnea (adult) (pediatric); J44.9 Chronic obstructive pulmonary disease, unspecified; E11.9 Type 2 diabetes mellitus without complications; F03.90 Unspecified dementia, unspecified severity, without behavioral disturbance, psychotic disturbance, mood disturbance, and anxiety; F32.A Depression, unspecified; F41.9 Anxiety disorder, unspecified; K21.9 Gastro-esophageal reflux disease without esophagitis; D64.9 Anemia, unspecified; E66.9 Obesity, unspecified; Z68.34 Body mass index [BMI] 34.0-34.9, adult; Z79.84 Long term (current) use of oral hypoglycemic drugs; Z79.899 Other long term (current) drug therapy; Z88.8 Allergy status to other drugs, medicaments and biological substances; Z87.891 Personal history of nicotine dependence; Z98.1 Arthrodesis status; Z90.710 Acquired absence of both cervix and uterus; Z96.651 Presence of right artificial knee joint; Z98.84 Bariatric surgery status; Z98.890 Other specified postprocedural states
CPT/HCPCS: 97116 ×2; 97161; 80048 ×2; 82607; 82728; 82746; 83540; 83550; 85025; 85610; 85730; 72040; 72125; 22551; 22552; 22853 ×2; 20930; G0378 ×3; L0120; C1713; J0330; J0360; J2710; J0690 ×2; J2405; J2001; J3010; J1170; J2704

== ENCOUNTER → 2024-03-20 | Outpatient (CLI) | payer MEDICARE, OTHER ==
--- NOTE | 2024-03-20 17:01 | BD ---
EXAMINATION TYPE: Axial Bone Density DATE OF EXAM: 03/20/2024 CLINICAL HISTORY: 68 years old Female. ICD-10 CODE: Z78.0 ASYMPTOMATIC MENOPAUSAL STATE Height: 60.5 Weight: 162 FRAX RISK QUESTIONS: Family History (Parent hip fracture): no History of Fracture in Adulthood: yes Secondary Osteoporosis: yes 3. Menopause before 45: yes 31 RISK FACTORS HISTORY OF: Surgery to Spine for nerves: yes When: 2004 MEDICATIONS: Thyroid Medications: no Osteoporosis Medications: yes Which medication: unsure How Lonm EXAM MEASUREMENTS: Bone mineral densitometry was performed using the [employer]. Bone mineral density as measured about the Lumbar spine is: ----- L1-L4(G/cm2): 1.128 T Score Values are as follows: ----- L1: -0.6 ----- L2: -0.9 ----- L3: -0.6 ----- L4: 0.2 ----- L1-L4: -0.4 Z Score Values are as follows: ----- L1: 0.7 ----- L2: 0.5 ----- L3: 0.7 ----- L4: 1.6 ----- L1-L4: 1.0 Bone mineral density has: Decreased -4.0% since study of: 01/27/2021 Bone mineral density about the R hip (g/cm2): 0.708 Bone mineral density about the L hip (g/cm2): 0.708 T Score values are as follows: -----R Neck: -2.9 -----L Neck: -2.0 -----R Total: -2.4 -----L Total: -2.4 Z Score values are as follows: -----R Neck: -1.4 -----L Neck: -0.5 -----R Total: -1.1 -----L Total: -1.1 Bone mineral density has: Decreased -6.7% since study of: 01/27/2021 FRAX%s: The graph provided illustrates a 26.7% chance for a major osteoporotic fx and a 8.4% chance f or the hips probability for fx in 10 years time. IMPRESSION: Osteoporosis (T Score less than -2.5). There is increased fracture risk and therapy is usually indicated based on age. Re-Screen 1-2 years. NOTE: T-SCORE=SD OF THE YOUNG ADULT MEAN.
== END | disposition home or self-care (01) ==
LOC: RADBDWWP 09:03
PROVIDERS: ATTEND Family Medicine
DX: M81.0 Age-related osteoporosis without current pathological fracture (principal); M85.89 Other specified disorders of bone density and structure, multiple sites; Z78.0 Asymptomatic menopausal state
CPT/HCPCS: 77080

== ENCOUNTER → 2024-12-25 | Outpatient (CLI) | payer MEDICARE, OTHER ==
--- NOTE | 2024-12-25 15:16 | CTL ---
EXAMINATION TYPE: CT Low Dose Lung DATE OF EXAM ORDERED: 12/25/2024 COMPARISON: CTA chest 08/25/2018, CT chest 11/14/2015 CLINICAL INDICATION: Female, 69 years old with history of Z12.2 ENCNTR SCREEN FOR MALIGNANT NEOPLASM OF RESP; PHH, Lung screening for nicotine dependence of 2ppd x40 years, quit smoking in 2020. Hx of C OPD., Lung cancer screening, History of Smoking/tobacco use. TECHNIQUE: Low dose computed tomography scan was performed through the chest at 1 mm thick sections a nd reconstructed images in multiple planes at 1 mm and [address] DLP: [address] CTDI: 2.49 mGy Automated exposure control for dose reduction was used. CT DIAGNOSTIC QUALITY: Satisfactory FINDINGS: Nodules: Stable left lower lobe superior segment calcified granuloma. Stable left lower lobe superior segment 2 mm pulmonary nodule (series 8, image 20). Stable lingular 2.4 mm pulmonary nodule (series 8, image 37). Stable left lower lobe 2.8 mm pulmonary nodule (series 8, image 44). LUNGS: COPD: Severity: None Fibrosis: Severity: None Lymph nodes: None Other findings: Medial right upper lobe linear scarring and/or atelectasis. 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 Left renal cortical thinning with cortical cysts. Bony thorax: Mild multilevel degenerative disc disease. Partial visualization of anterior cervical fu mayela hardware. Supraclavicular region: None Other: None IMPRESSION: Few stable pulmonary nodules dated back to 2018 and considered benign. No new or enlargin g pulmonary nodules. CT LUNG RAD AND CT CHEST RECOMMENDATION: Lung-Rad 2 Benign Appearance or Behavior: Continue annual sc reening with LDCT in 12 months. S Modifier (other clinically significant findings): None [facility], , 12/25/2024 3:14 PM
== END | disposition home or self-care (01) ==
LOC: RADCTMAIN 14:39
PROVIDERS: ATTEND Family Medicine
DX: Z12.2 Encounter for screening for malignant neoplasm of respiratory organs (principal); R91.8 Other nonspecific abnormal finding of lung field; Z87.891 Personal history of nicotine dependence
CPT/HCPCS: 71271

== ENCOUNTER → 2025-05-18 | Outpatient (CLI) | payer MEDICARE, OTHER ==
--- NOTE | 2025-05-18 17:42 | BD ---
EXAMINATION TYPE: Axial Bone Density DATE OF EXAM: 05/18/2025 CLINICAL HISTORY: 70 years old Female. ICD-10 CODE: Z780 POST-KENDELL WITHOUT HRT , Additional History: Nuclear Medicine Study in the last 2 weeks: Barium Study in the last week: : Height: Weight: FRAX RISK QUESTIONS: Alcohol (3 or more units per day): Family History (Parent hip fracture): Glucocorticoids (More than 3mos): (Ex: prednisone, prednisolone, methylprednisolone, dexamethasone, and hydrocortisone). History of Fracture in Adulthood: Secondary Osteoporosis: 1. Type 1 Diabetes: 2. Hyperthyroidism: 3. Menopause before 45: 4. Malnutrition: 5. Chronic liver disease: Rheumatoid Arthritis: Current Tobacco Use: RISK FACTORS HISTORY OF: Hip Fracture (Right/Left): Spine Fracture: History of Wrist Fracture: Surgery to Spine/Hip(right/left)/Wrist (right/left): MEDICATIONS: Thyroid Medications: Which medication: How Long: Osteoporosis Medications: Which medication: How Long: EXAM MEASUREMENTS: Bone mineral densitometry was performed using the [employer] System. Bone mineral density as measured about the Lumbar spine is: ----- L1-L4(G/cm2): T Score Values are as follows: ----- L1: ----- L2: ----- L3: ----- L4: ----- L1-L4: Z Score Values are as follows: ----- L1: ----- L2: ----- L3: ----- L4: ----- L1-L4: Bone mineral density has: % since study of: Bone mineral density about the R hip (g/cm2): Bone mineral density about the L hip (g/cm2): T Score values are as follows: -----R Neck: -----L Neck: -----R Total: -----L Total: Z Score values are as follows: -----R Neck: -----L Neck: -----R Total: -----L Total: Bone mineral density has: % since study of: Bone mineral density about the R Wrist (g/cm2): Bone mineral density about the L Wrist (g/cm2): T Score values are as follows: -----Dist. R+U: -----Prox. R+U: -----Radius total: Z Score values are as follows: -----Dist. R+U: -----Prox. R+U: -----Radius total: Bone mineral density has: % since study of: FRAX%s: The graph provided illustrates a % chance for a major osteoporotic fx and a % chance for the hips probability for fx in 10 years time. IMPRESSION: Osteoporosis (T Score less than -2.5). There is increased fracture risk and therapy is usually indicated based on age. Re-Screen 1-2 years. NOTE: T-SCORE=SD OF THE YOUNG ADULT MEAN. [facility], , 05/18/2025 5:40 PM
--- NOTE | 2025-05-18 17:57 | MM ---
Reason for Exam: Screening (asymptomatic). Last mammogram was performed 2 year(s) and 2 month(s) ago. Patient History: Menarche at age 11. First Full-Term at age 18. Left ovary removed at age 31. Right ovary removed at age 31. Hysterectomy at age 31. Postmenopausal. Estrogen for 3 years from age 31 until age 34. 05/24/2009, Benign Core Biopsy on the right side. Sister had breast cancer. Mother had breast cancer. Risk Values: Sherita 5 year model risk: 9.7%. NCI Lifetime model risk: 24.4%. Prior Study Comparison: 01/27/2021 Bilateral Screening Mammogram, [facility]. 03/10/2022 Bilateral MG 3D screening mammo w/cad, [facility]. 03/18/2023 Bilateral MG 3D screening mammo w/cad, [facility]. Tissue Density: There are scattered areas of fibroglandular density. Findings: Analyzed By CAD. Chronic low density nodularity on the left. Microclip right breast from prior biopsy. There is no suspicious group of microcalcifications or new suspicious mass in either breast. Overall Assessment: Benign, BI-RAD 2 Management: Screening Mammogram of both breasts in 1 year. SEE NOTE BELOW IN REGARDS TO THE PATIENT'S INCREASED 5 YEAR SHERITA SCORE AND INCREASED LIFETIME RISK SCORE. Patient should continue monthly self-breast exams. A clinical breast exam by your physician is recommended on an annual basis. This exam should not preclude additional follow-up of suspicious palpable abnormalities. Note on Sherita scores and lifetime risk: 1. A Sherita score greater than 3% is considered moderate risk. If this is the case, consider specialist referral to assess eligibility for a risk reducing agent. 2. If overall lifetime risk for the development of breast cancer is 20% or higher, the patient may qualify for future screening with alternating mammogram and breast MRI. [facility], , 05/18/2025 5:54 PM. Electronically signed and approved by: Holden Arvizu M.D. Radiologist
== END | disposition home or self-care (01) ==
LOC: RADMAMWWP 10:26
PROVIDERS: ATTEND Family Medicine
DX: Z12.31 Encounter for screening mammogram for malignant neoplasm of breast (principal); R92.323 Mammographic fibroglandular density, bilateral breasts; M81.0 Age-related osteoporosis without current pathological fracture; Z78.0 Asymptomatic menopausal state; Z80.3 Family history of malignant neoplasm of breast
CPT/HCPCS: 77063; 77067; 77080